=== PATIENT | male | born 1985 | race Caucasian/White ===

== ENCOUNTER 2021-10-13 13:45 | Emergency (ER) | payer MEDICARE, MEDICAID ==
[~2021-10-13] VITALS: Ht 160 cm; Wt 80.1 kg
--- NOTE | 2021-10-13 14:12 | ED Abdominal Pain ---
General Chief Complaint: Abdominal/GI Problems Stated Complaint: ABD / BACK PAIN Nursing Triage Note: PT ARRIVAL TO ER WITH COMPLAINT OF ABDOMINAL PAIN X1 WEEK. PT STATES THAT TODAY WHEN HE BENT OVER HE HEARD AND FELT A LOUD POP IN HIS ABDOMEN. PT VOMITED ONCE TODAY. Source of Information: Patient Exam Limitations: No Limitations History of Present Illness Date Seen by Provider: Oct 13, 2021 Time Seen by Provider: 14:10 Initial Comments Patient is a 36-year-old male presents ED bilateral lower abdominal pain. Described as sharp and intermittent. Pain over the past week. Denies any trauma. History of cholecystectomy. Patient states he bent over and felt a sharp pain and vomited once. Patient is type I diabetic has not been checking his blood sugar at home. Denies chest pain, shortness of breath, headache, dizziness, diarrhea. Denies any back pain. Allergies and Home Medications Allergies Coded Allergies: Penicillins (Verified Allergy, Mild, 10/13/21) morphine (Verified Allergy, Mild, 10/13/21) Patient Home Medication List Home Medication List Reviewed: Yes Review of Systems Review of Systems Constitutional: No chills, No diaphoresis EENTM: No Blurred Vision, No Double Vision, No Eye Pain Respiratory: Denies Cough, Denies Orthopnea Cardiovascular: Denies Chest Pain Gastrointestinal: Abdominal Pain, Nausea, Vomiting Musculoskeletal: No back pain, No joint pain, No muscle pain All Other Systems Reviewed Negative Unless Noted: Yes Past Itnyawi-Lbvamz-Lxxfqk Hx Patient Social History Tobacco Use?: No Smokeless Tobacco Frequency: Current Everyday User Use of E-Cig and/or Vaping dev: No Substance use?: No Alcohol Use?: No Pt feels they are or have been: No Immunizations Up To Date Influenza Vaccine Up-to-Date: No; Not Current Physical Exam Vital Signs Vital Signs - First Documented 10/13/21 14:03 Temp 36.4 Pulse 96 Resp 20 B/P (MAP) 139/101 (114) Pulse Ox 98 O2 Delivery Room Air Capillary Refill : Less Than 3 Seconds Height/Weight/BMI Height: '" Weight: lbs. oz. kg; 31.00 BMI Method: General Appearance: WD/WN, no apparent distress HEENT: PERRL/EOMI, normal ENT inspection, TMs normal, pharynx normal Neck: non-tender, full range of motion, supple, normal inspection Respiratory: chest non-tender, lungs clear, normal breath sounds, no respiratory distress, no accessory muscle use Cardiovascular: regular rate, rhythm, no edema, no gallop, no JVD Gastrointestinal: normal bowel sounds, soft, no organomegaly, tenderness (biLateral lower abdominal tenderness) Extremities: normal range of motion, non-tender, normal inspection Back: normal inspection, no CVA tenderness, no vertebral tenderness Neurologic/Psychiatric: cma II-XII nml as tested, no motor/sensory deficits, alert, normal mood/affect, oriented x 3 Progress/Results/Core Measures Results/Orders Lab Results Laboratory Tests Test 10/13/21 14:14 10/13/21 14:24 10/13/21 16:32 10/13/21 17:33 Range/Units Urine Color YELLOW Urine Clarity CLEAR Urine pH 6.0 5-9 Urine Specific [place] <=1.005 1.016-1.022 Urine Protein NEGATIVE NEGATIVE Urine Glucose (UA) 3+ H NEGATIVE Urine Ketones TRACE H NEGATIVE Urine Nitrite NEGATIVE NEGATIVE Urine Bilirubin NEGATIVE NEGATIVE Urine Urobilinogen 0.2 < = 1.0 MG/DL Urine Leukocyte Esterase NEGATIVE NEGATIVE Urine RBC (Auto) NEGATIVE NEGATIVE Urine RBC NONE /HPF Urine WBC NONE /HPF Urine Squamous Epithelial Cells RARE /HPF Urine Crystals NONE /LPF Urine Bacteria NEGATIVE /HPF Urine Casts NONE /LPF Urine Mucus NEGATIVE /LPF Urine Culture Indicated NO White Blood Count 10.5 4.3-11.0 10^3/uL Red Blood Count 4.42 4.30-5.52 10^6/uL Hemoglobin 12.9 L 13.3-17.7 g/dL Hematocrit 39 L 40-54 % Mean Corpuscular Volume 88 80-99 fL Mean Corpuscular Hemoglobin 29 25-34 pg Mean Corpuscular Hemoglobin Concent 33 32-36 g/dL Red Cell Distribution Width 13.2 10.0-14.5 % Platelet Count 221 130-400 10^3/uL Mean Platelet Volume 10.1 9.0-12.2 fL Immature Granulocyte % (Auto) 0 % Neutrophils (%) (Auto) 79 H 42-75 % Lymphocytes (%) (Auto) 14 12-44 % Monocytes (%) (Auto) 6 0-12 % Eosinophils (%) (Auto) 1 0-10 % Basophils (%) (Auto) 1 0-10 % Neutrophils # (Auto) 8.3 H 1.8-7.8 10^3/uL Lymphocytes # (Auto) 1.5 1.0-4.0 10^3/uL Monocytes # (Auto) 0.6 0.0-1.0 10^3/uL Eosinophils # (Auto) 0.1 0.0-0.3 10^3/uL Basophils # (Auto) 0.1 0.0-0.1 10^3/uL Immature Granulocyte # (Auto) 0.0 0.0-0.1 10^3/uL Sodium Level 130 L 135-145 MMOL/L Potassium Level 4.7 3.6-5.0 MMOL/L Chloride Level 97 L 98-107 MMOL/L Carbon Dioxide Level 24 21-32 MMOL/L Anion Gap 9 5-14 MMOL/L Blood Urea Nitrogen 12 7-18 MG/DL Creatinine 1.30 0.60-1.30 MG/DL Estimat Glomerular Filtration Rate 73 BUN/Creatinine Ratio 9 Glucose Level 648 *H 70-105 MG/DL Calcium Level 8.6 8.5-10.1 MG/DL Corrected Calcium 8.7 8.5-10.1 MG/DL Total Bilirubin 0.9 0.1-1.0 MG/DL Aspartate Amino Transf (AST/SGOT) 15 5-34 U/L Alanine Aminotransferase (ALT/SGPT) 16 0-55 U/L Alkaline Phosphatase 203 H 40-136 U/L Total Protein 7.1 6.4-8.2 GM/DL Albumin 3.9 3.2-4.5 GM/DL Lipase 18 8-78 U/L Beta-Hydroxybutyrate (Chem panel) 0.90 H 0.00-0.27 MMOL/L Glucometer 420 *H 344 H 70-110 MG/DL My Orders Orders - LISET HALEY Cbc With Automated Diff (10/13/21 14:03) Comprehensive Metabolic Panel (10/13/21 14:03) Lipase (10/13/21 14:03) Ua Culture If Indicated (10/13/21 14:03) Ketorolac Injection (Toradol Injection) (10/13/21 14:15) Ns Iv 1000 Ml (Sodium Chloride 0.9%) (10/13/21 14:49) Iv/Invasive Line Insertion .IV start (10/13/21 14:49) Insulin (Regular) Human (Novolin R (Per (10/13/21 15:00) Ct Abd/Pelv W (Appendicitis) (10/13/21 14:49) Fentanyl Inj (Sublimaze Injection) (10/13/21 14:49) Iohexol Injection (Omnipaque 350 Mg/Ml 1 (10/13/21 15:45) Received Contrast (Hold Metformin- Contr (10/13/21 15:45) Sodium Chloride Flush (Catheter Flush Sy (10/13/21 15:45) Ns (Ivpb) (Sodium Chloride 0.9% Ivpb Bag (10/13/21 15:45) Accucheck Stat ONCE (10/13/21 15:57) Insulin (Regular) Human (Novolin R (Per (10/13/21 21:00) Beta Hydroxybutyrate (10/13/21 16:38) Ns Iv 1000 Ml (Sodium Chloride 0.9%) (10/13/21 16:39) Medications Given in ED Current Medications Medications Dose Ordered Sig/Tuan Route Start Time Stop Time Status Last Admin Dose Admin Insulin Human Regular 10 unit ONCE ONCE SC 10/13/21 15:00 10/13/21 15:01 DC 10/13/21 15:09 10 UNIT Iohexol 100 ml ONCE ONCE IV 10/13/21 15:45 10/13/21 15:47 DC 10/13/21 15:55 100 ML Ketorolac Tromethamine 30 mg ONCE ONCE IM 10/13/21 14:15 10/13/21 14:16 DC 10/13/21 14:28 30 MG Sodium Chloride 10 ml NEEDED PRN IV 10/13/21 15:45 10/13/21 18:18 DC 10/13/21 15:55 10 ML Sodium Chloride 100 ml ONCE ONCE IV 10/13/21 15:45 10/13/21 15:47 DC 10/13/21 15:55 80 ML Vital Signs/I&O 10/13/21 10/13/21 14:03 18:10 Temp 36.4 Pulse 96 83 Resp 20 20 B/P (MAP) 139/101 (114) 127/91 Pulse Ox 98 99 O2 Delivery Room Air Room Air Blood Pressure Mean: 114 Departure Communication (PCP) Patient with lower abdominal pain right and left lower quadrant over the past week. No radiation. Intermittent sharp pain. Urinalysis with glucose and trace ketones. Normal white blood count. Patient with hyponatremia 130 hypochloremia 97. Normal kidney function liver function anion gap. Beta hydroxybutyrate was 0.90. Possible early DKA. Was given 15 units of regular insulin here with improvement from blood sugar over 600-344. Was given 2 L of fluid. Patient was given fentanyl and states this improved pain. During his stay he was continue requesting fentanyl. Discussed with patient that his CT Abdo pelvis did not show any acute abnormality in his abdomen. Discussed other alternatives. Patient became frustrated and decided to leave. Discussed with patient that there was subpleural nodules that appear benign however twill need outpatient CT scan of the chest for further evaluation. History of smoking. Denies of any current chest pain or shortness of breath. Outpatient follow-up at this time. Discussed importance of continue monitoring blood sugar. I wanted to continue monitoring here until in the 200s. Patient was wanting to leave. if any worsening symptoms return back to ED for further evaluation. Impression Primary Impression: Abdominal pain Disposition: 01 HOME, SELF-CARE Condition: Stable Departure-Patient Inst. Decision time for Depature: 18:05 Referrals: [facility] [place]LOCAL PHYSICIAN (PCP) Primary Care Physician Patient Instructions: Abdominal Pain, Adult ED Add. Discharge Instructions: Need to continue monitoring blood sugar at home. Need to follow-up outpatient with primary care physician. All discharge instructions reviewed with patient and/or family. Voiced understanding. LISET HALEY Oct 13, 2021 14:12
[2021-10-13] MEDS ORDERED: KETOROLAC 60 MG/2 ML VIAL IM ONE (14:15)
[2021-10-13 14:23] LABS: BILIRUBIN,URINE NEGATIVE (NEGATIVE); CLARITY,URINE CLEAR; COLOR,URINE YELLOW; GLUCOSE, URINE (UA) 3+ (NEGATIVE); KETONES,URINE TRACE (NEGATIVE); LEUKOCYTE ESTERASE ,URINE NEGATIVE (NEGATIVE); NITRITE,URINE NEGATIVE (NEGATIVE); PROTEIN,URINE NEGATIVE (NEGATIVE)
[2021-10-13 14:35] LABS: BASOPHILS # (AUTO) 0.1 10^3/uL (0.0-0.1); BASOPHILS % (AUTO) 1 % (0-10); EOSINOPHILS # (AUTO) 0.1 10^3/uL (0.0-0.3); EOSINOPHILS % (AUTO) 1 % (0-10); HEMATOCRIT 39 % (40-54); HEMOGLOBIN 12.9 g/dL (13.3-17.7); LYMPHOCYTES # (AUTO) 1.5 10^3/uL (1.0-4.0); LYMPHOCYTES % (AUTO) 14 % (12-44); MEAN CORPUSCULAR HEMOGLOBIN 29 pg (25-34); MEAN CORPUSCULAR HGB CONC 33 g/dL (32-36); MEAN CORPUSCULAR VOLUME 88 fL (80-99); MEAN PLATELET VOLUME 10.1 fL (9.0-12.2); MONOCYTES # (AUTO) 0.6 10^3/uL (0.0-1.0); MONOCYTES % (AUTO) 6 % (0-12); NEUTROPHILS # (AUTO) 8.3 10^3/uL (1.8-7.8); NEUTROPHILS % (AUTO) 79 % (42-75); PLATELET COUNT 221 10^3/uL (130-400); WHITE BLOOD COUNT 10.5 10^3/uL (4.3-11.0)
[2021-10-13 14:38] LABS: BACTERIA,URINE NEGATIVE /HPF; SQUAMOUS EPITHELIAL CELL,UR RARE /HPF
[2021-10-13 14:40] LABS: ALBUMIN 3.9 GM/DL (3.2-4.5); POTASSIUM 4.7 MMOL/L (3.6-5.0)
[2021-10-13 14:41] LABS: CALCIUM 8.6 MG/DL (8.5-10.1)
[2021-10-13 14:42] LABS: TOTAL PROTEIN 7.1 GM/DL (6.4-8.2)
[2021-10-13 14:44] LABS: BILIRUBIN,TOTAL 0.9 MG/DL (0.1-1.0)
[2021-10-13 14:46] LABS: CREATININE SERUM 1.3 MG/DL (0.60-1.30)
[2021-10-13] MEDS ORDERED: NS IV 1000 ML 1,000 ML IV STA ×2 (14:49→16:39)
[2021-10-13] MEDS ORDERED: fentaNYL INJ 100 MCG/2 ML AMP IVP STA (14:49)
[2021-10-13] MEDS ORDERED: inSUlin (REGULAR) HUMAN 1 UNIT/0.01 ML (CHARGE PER UNIT) SC ONE (15:00)
[2021-10-13] MEDS ORDERED: NS 100 ML (IVPB) BAG IV ONE (15:45)
[2021-10-13] MEDS ORDERED: IOHEXOL 350 MG/ML 100 ML (OMNIPAQUE 350) VIAL IV ONE (15:45)
[2021-10-13] MEDS ORDERED: CATHETER FLUSH 10 ML SYR IV PRN (15:45)
[2021-10-13] MEDS ORDERED: HOLD METFORMIN - RECEIVED CONTRAST 20 ML VIAL IV SCH (15:45)
--- NOTE | 2021-10-13 16:11 | Diagnostic Imaging Report ---
PROCEDURE: CT abdomen and pelvis with contrast, rule out appendicitis. TECHNIQUE: Multiple contiguous axial images were obtained through the abdomen and pelvis after the administration of intravenous contrast. All CT scans use one or more of the following dose optimizing techniques: Automated exposure control, MA and/or KvP adjustment based on patient size and exam type or iterative reconstruction. INDICATION: Abdominal pain of one week's duration. COMPARISON: No priors. FINDINGS: The lung bases revealed scattered subcentimeter subpleural nodules that were predominantly sub-solid in their density. The largest visualized in the right middle lobe at 5 mm. No basilar consolidation or fluid. The gallbladder is surgically absent. The liver, spleen, adrenals, and pancreas are unremarkable. There is no small or large bowel obstruction. The kidneys are unobstructed and normal. There is no pneumatosis. There is no free air. There is no abdominal wall defect, hernia, or rectus sheath collection. The aorta is nonaneurysmal. No vascular obstruction. No diverticulitis or appendicitis. No pneumatosis. No free gas. The urinary bladder was unopacified and nearly empty, grossly unremarkable. The bony structures are nonacute. There is no lymphadenopathy or mass. IMPRESSION: 1. Tiny maximal 5 mm subpleural micronodules, largely sub-solid, in the visualized lung bases favor benignity; however, if there is a history of malignancy or the patient is at high risk, a nonemergent follow-up chest CT would be recommended. 2. The abdominopelvic portion of the study was unremarkable and showed no obstruction, inflammatory process, mass, adenopathy, or acute abnormalities. Dictated by: Dictated on workstation # [id number]
[2021-10-13 18:10] VITALS: BP 127/91
[2021-10-13] MEDS ORDERED: inSUlin (REGULAR) HUMAN 1 UNIT/0.01 ML (CHARGE PER UNIT) SC SCH (21:00)
== END 2021-10-13 18:13 | disposition home or self-care (01) ==
LOC: ER 13:48
DX: R10.31 Right lower quadrant pain (principal); R10.32 Left lower quadrant pain; E87.1 Hypo-osmolality and hyponatremia; E87.8 Other disorders of electrolyte and fluid balance, not elsewhere classified; E71.32 Disorders of ketone metabolism; E10.9 Type 1 diabetes mellitus without complications; F17.220 Nicotine dependence, chewing tobacco, uncomplicated; Z90.49 Acquired absence of other specified parts of digestive tract
CPT/HCPCS: 36415; 74177; 80053; 81000; 82010; 82947; 83690; 85025

== ENCOUNTER 2021-11-15 15:25 | Emergency (ER) | payer MEDICARE, MEDICAID ==
[~2021-11-15] VITALS: Ht 160 cm; Wt 84.0 kg
--- NOTE | 2021-11-15 16:12 | ED General ---
General Chief Complaint: Glucose Problems Stated Complaint: ABD PAIN Nursing Triage Note: PT TO ED W/ C/O ABD PAIN, N/V ET ELEVATED BLOOD SUGAR. PT REPORTS HIS GLUCOMETER WOULDN'T READ HIS BLOOD SUGAR ET "IT ONLY DOES THAT WHEN MY SUGAR IS OVER 800". NO OTHER C/O VOICED. Source of Information: Patient Exam Limitations: No Limitations History of Present Illness Date Seen by Provider: Nov 15, 2021 Time Seen by Provider: 16:09 Initial Comments This is a 36-year-old male that presents to the emergency room for multiple complaints. He states that his blood sugar has been uncontrolled today and he believes it was over 800. He also states that for the last several weeks he has had intermittent lower abdominal pain but today seems worse and has been constant. He states that he is not having any diarrhea or dysuria but he did throw up once today. Severity: Moderate Allergies and Home Medications Allergies Coded Allergies: Penicillins (Verified Allergy, Mild, 10/13/21) morphine (Verified Allergy, Mild, 10/13/21) Patient Home Medication List Home Medication List Reviewed: Yes Review of Systems Review of Systems Constitutional: no symptoms reported EENTM: no symptoms reported Respiratory: no symptoms reported Cardiovascular: no symptoms reported Gastrointestinal: abdominal pain, nausea, vomiting Genitourinary: no symptoms reported Musculoskeletal: no symptoms reported Skin: no symptoms reported Hematologic/Lymphatic: No Symptoms Reported Past Bqwduun-Innijm-Qwcdhz Hx Patient Social History Tobacco Use?: No Use of E-Cig and/or Vaping dev: No Substance use?: No Alcohol Use?: Yes Pt feels they are or have been: No Past Medical History Surgery/Hospitalization HX: SHILPA BILAT EAR SURGERY (MULTIPLE) [facility]&A [facility]TH[facility] DIABETIC Physical Exam Vital Signs Vital Signs - First Documented 11/15/21 15:39 Temp 36.7 Pulse 89 Resp 20 B/P (MAP) 119/97 (104) Pulse Ox 97 O2 Delivery Room Air Capillary Refill : Less Than 3 Seconds Height, Weight, BMI Height: '" Weight: lbs. oz. kg; 32.00 BMI Method: General Appearance: No Apparent Distress, WD/WN HEENT: PERRL/EOMI, TMs Normal, Pharynx Normal Neck: Full Range of Motion Respiratory: Chest Non Tender, Lungs Clear Cardiovascular: Regular Rate, Rhythm Gastrointestinal: Normal Bowel Sounds Neurologic/Psychiatric: Alert, Oriented x3, No Motor/Sensory Deficits, Normal Mood/Affect, time study engineer II-XII Norm as Tested Skin: Normal Color, Warm/Dry Progress/Results/Core Measures Suspected Sepsis SIRS Temperature: Pulse: 89 Respiratory Rate: 20 Laboratory Tests 11/15/21 16:14: White Blood Count 10.9 Blood Pressure 119 /97 Mean: 104 Laboratory Tests 11/15/21 16:14: Creatinine 0.84, Platelet Count 223, Total Bilirubin 0.6 Results/Orders Lab Results Laboratory Tests Test 11/15/21 15:48 11/15/21 16:14 Range/Units Glucometer 117 H 70-110 MG/DL White Blood Count 10.9 4.3-11.0 10^3/uL Red Blood Count 4.66 4.30-5.52 10^6/uL Hemoglobin 13.6 13.3-17.7 g/dL Hematocrit 40 40-54 % Mean Corpuscular Volume 87 80-99 fL Mean Corpuscular Hemoglobin 29 25-34 pg Mean Corpuscular Hemoglobin Concent 34 32-36 g/dL Red Cell Distribution Width 13.6 10.0-14.5 % Platelet Count 223 130-400 10^3/uL Mean Platelet Volume 10.1 9.0-12.2 fL Immature Granulocyte % (Auto) 0 % Neutrophils (%) (Auto) 65 42-75 % Lymphocytes (%) (Auto) 25 12-44 % Monocytes (%) (Auto) 9 0-12 % Eosinophils (%) (Auto) 1 0-10 % Basophils (%) (Auto) 1 0-10 % Neutrophils # (Auto) 7.1 1.8-7.8 10^3/uL Lymphocytes # (Auto) 2.7 1.0-4.0 10^3/uL Monocytes # (Auto) 0.9 0.0-1.0 10^3/uL Eosinophils # (Auto) 0.1 0.0-0.3 10^3/uL Basophils # (Auto) 0.1 0.0-0.1 10^3/uL Immature Granulocyte # (Auto) 0.0 0.0-0.1 10^3/uL Urine Color YELLOW Urine Clarity CLEAR Urine pH 7.5 5-9 Urine Specific [place] 1.015 L 1.016-1.022 Urine Protein NEGATIVE NEGATIVE Urine Glucose (UA) 3+ H NEGATIVE Urine Ketones TRACE H NEGATIVE Urine Nitrite NEGATIVE NEGATIVE Urine Bilirubin NEGATIVE NEGATIVE Urine Urobilinogen 1.0 < = 1.0 MG/DL Urine Leukocyte Esterase NEGATIVE NEGATIVE Urine RBC (Auto) NEGATIVE NEGATIVE Urine RBC RARE /HPF Urine WBC RARE /HPF Urine Squamous Epithelial Cells RARE /HPF Urine Crystals NONE /LPF Urine Bacteria TRACE /HPF Urine Casts NONE /LPF Urine Mucus SMALL H /LPF Urine Other FEW SPERM H /HPF Urine Culture Indicated NO Sodium Level 144 135-145 MMOL/L Potassium Level 3.7 3.6-5.0 MMOL/L Chloride Level 105 98-107 MMOL/L Carbon Dioxide Level 25 21-32 MMOL/L Anion Gap 14 5-14 MMOL/L Blood Urea Nitrogen 14 7-18 MG/DL Creatinine 0.84 0.60-1.30 MG/DL Estimat Glomerular Filtration Rate 116 BUN/Creatinine Ratio 17 Glucose Level 78 70-105 MG/DL Calcium Level 9.4 8.5-10.1 MG/DL Corrected Calcium 9.2 8.5-10.1 MG/DL Total Bilirubin 0.6 0.1-1.0 MG/DL Aspartate Amino Transf (AST/SGOT) 13 5-34 U/L Alanine Aminotransferase (ALT/SGPT) 13 0-55 U/L Alkaline Phosphatase 171 H 40-136 U/L Total Protein 7.5 6.4-8.2 GM/DL Albumin 4.2 3.2-4.5 GM/DL My Orders Orders - LINDA LOMELI Cbc With Automated Diff (11/15/21 16:06) Comprehensive Metabolic Panel (11/15/21 16:06) Ed Iv/Invasive Line Start (11/15/21 16:06) Ua Culture If Indicated (11/15/21 16:06) Vital Signs/I&O 11/15/21 15:39 Temp 36.7 Pulse 89 Resp 20 B/P (MAP) 119/97 (104) Pulse Ox 97 O2 Delivery Room Air Capillary Refill : Less Than 3 Seconds Blood Pressure Mean: 104 Departure Communication (Admissions) Patient is afebrile, nontoxic and in no distress. Abdomen is fairly benign on exam and his lab work is reassuring. At this time there is no evidence or suspicion of DKA, appendicitis, diverticulitis, perforation or other emergent condition. I did recommend the patient follow-up with his primary care doctor if he feels his blood sugars are poorly controlled or return to the emergency room with any severe changes or worsening of his symptoms. Impression Primary Impression: Abdominal pain Disposition: HOME, SELF-CARE Condition: Stable Departure-Patient Inst. Decision time for Depature: 16:50 Referrals: NO,LOCAL PHYSICIAN (PCP/Family) Primary Care Physician Patient Instructions: Abdominal Pain, Adult ED Add. Discharge Instructions: Please follow-up closely with your primary care doctor as needed. Return to the emergency room with any severe changes or worsening of your symptoms as we discussed. All discharge instructions reviewed with patient and/or family. Voiced understanding. LINDA LOMELI Nov 15, 2021 16:12
[2021-11-15 16:22] LABS: BASOPHILS # (AUTO) 0.1 10^3/uL (0.0-0.1); BASOPHILS % (AUTO) 1 % (0-10); EOSINOPHILS # (AUTO) 0.1 10^3/uL (0.0-0.3); EOSINOPHILS % (AUTO) 1 % (0-10); HEMATOCRIT 40 % (40-54); HEMOGLOBIN 13.6 g/dL (13.3-17.7); LYMPHOCYTES # (AUTO) 2.7 10^3/uL (1.0-4.0); LYMPHOCYTES % (AUTO) 25 % (12-44); MEAN CORPUSCULAR HEMOGLOBIN 29 pg (25-34); MEAN CORPUSCULAR HGB CONC 34 g/dL (32-36); MEAN CORPUSCULAR VOLUME 87 fL (80-99); MEAN PLATELET VOLUME 10.1 fL (9.0-12.2); MONOCYTES # (AUTO) 0.9 10^3/uL (0.0-1.0); MONOCYTES % (AUTO) 9 % (0-12); NEUTROPHILS # (AUTO) 7.1 10^3/uL (1.8-7.8); NEUTROPHILS % (AUTO) 65 % (42-75); PLATELET COUNT 223 10^3/uL (130-400); WHITE BLOOD COUNT 10.9 10^3/uL (4.3-11.0)
[2021-11-15 16:24] LABS: BILIRUBIN,URINE NEGATIVE (NEGATIVE); CLARITY,URINE CLEAR; COLOR,URINE YELLOW; GLUCOSE, URINE (UA) 3+ (NEGATIVE); KETONES,URINE TRACE (NEGATIVE); LEUKOCYTE ESTERASE ,URINE NEGATIVE (NEGATIVE); NITRITE,URINE NEGATIVE (NEGATIVE); PH,URINE 7.5 (5-9); PROTEIN,URINE NEGATIVE (NEGATIVE)
[2021-11-15 16:35] LABS: ALBUMIN 4.2 GM/DL (3.2-4.5); POTASSIUM 3.7 MMOL/L (3.6-5.0)
[2021-11-15 16:36] LABS: CALCIUM 9.4 MG/DL (8.5-10.1)
[2021-11-15 16:37] LABS: TOTAL PROTEIN 7.5 GM/DL (6.4-8.2)
[2021-11-15 16:39] LABS: BILIRUBIN,TOTAL 0.6 MG/DL (0.1-1.0)
[2021-11-15 16:40] LABS: BACTERIA,URINE TRACE /HPF; RBC,URINE RARE /HPF; SQUAMOUS EPITHELIAL CELL,UR RARE /HPF; URINE OTHER FEW SPERM /HPF; WBC,URINE RARE /HPF
[2021-11-15 16:41] LABS: CREATININE SERUM 0.84 MG/DL (0.60-1.30)
[2021-11-15] MEDS ORDERED: ONDANSETRON 4 MG (ZOFRAN) ORAL DISSOLVE TAB ONE (16:57)
[2021-11-15] MEDS ORDERED: ONDANSETRON 4 MG (ZOFRAN) ORAL DISSOLVE TAB PO STA (16:57)
[2021-11-15 17:02] VITALS: BP 132/98
== END 2021-11-15 17:02 | disposition home or self-care (01) ==
LOC: EDUNIT# 15:25 → ER 15:26
DX: R10.30 Lower abdominal pain, unspecified (principal); Z90.49 Acquired absence of other specified parts of digestive tract
CPT/HCPCS: 36415; 80053; 81000; 82947; 85025

== ENCOUNTER 2021-11-21 13:16 | Emergency (ER) | payer MEDICARE, MEDICAID ==
[2021-11-21 14:02] VITALS: BP 113/76
[2021-11-21] MEDS ORDERED: NS IV 1000 ML 1,000 ML IV STA (14:15)
[2021-11-21] MEDS ORDERED: ONDANSETRON 4 MG/2 ML (SDV) Z0FRAN IVP ONE (14:15)
--- NOTE | 2021-11-21 14:20 | ED Abdominal Pain ---
General Chief Complaint: Abdominal/GI Problems Stated Complaint: RLQ PAIN, N/V Source of Information: Patient Exam Limitations: No Limitations (LISET HALEY) History of Present Illness Date Seen by Provider: Nov 21, 2021 Time Seen by Provider: 14:16 Initial Comments Patient is a 36-year-old male who is a type I diabetic who presents ED with bilateral abdominal pain worse on the right. History of pain for several months. This pain became worse over the past 4 days. Pain is described as sharp and feels like somebody is punching him in the abdomen. Pain into the g roin but denies of any testicle pain, testicle swelling. Some mild pain and discomfort with urination. States his blood sugar has been over 344 today. Did vomited and not feeling well today. Patient denies taking thing for pain. History of cholecystectomy. Denies fever, chest pain, shortness of breath, cough, runny nose. (LISET HALEY) Allergies and Home Medications Allergies Coded Allergies: Penicillins (Verified Allergy, Mild, 10/13/21) morphine (Verified Allergy, Mild, 10/13/21) Patient Home Medication List Home Medication List Reviewed: Yes (LISET HALEY) Review of Systems Review of Systems Constitutional: No chills, No diaphoresis; malaise EENTM: No Double Vision, No Eye Pain Respiratory: Denies Cough, Denies Orthopnea Cardiovascular: Denies Chest Pain Gastrointestinal: Abdominal Pain; Denies Diarrhea; Nausea, Vomiting Genitourinary: Denies Burning, Denies Discharge, Denies Frequency; Pain Musculoskeletal: No back pain, No joint pain Skin: No change in color Psychiatric/Neurological: Denies Anxiety, Denies Depressed (LISET HALEY) All Other Systems Reviewed Negative Unless Noted: Yes (LISET HALEY) Past Orabwbh-Rdkzva-Btwnup Hx Patient Social History Tobacco Use?: No Smokeless Tobacco Frequency: Current Everyday User Substance use?: No Alcohol Use?: Yes Alcohol Frequency: Rarely Pt feels they are or have been: No (LISET HALEY) Immunizations Up To Date Influenza Vaccine Up-to-Date: No; Not Current (LISET HALEY) Past Medical History Surgery/Hospitalization HX: SHILPA BILAT EAR SURGERY (MULTIPLE) T&A ORTHOPEDIC DIABETIC, htn (LISET HALEY) Physical Exam Vital Signs Vital Signs - First Documented 11/21/21 14:02 Temp 36.6 Pulse 86 Resp 83 B/P (MAP) 113/76 (88) (STEWART BRYAN MD) Vital Signs Capillary Refill : (LISET HALEY) Height/Weight/BMI Height: '" Weight: lbs. oz. kg; 32.00 BMI Method: General Appearance: WD/WN, no apparent distress HEENT: PERRL/EOMI, normal ENT inspection, TMs normal, pharynx normal Neck: non-tender, full range of motion, supple, normal inspection Respiratory: chest non-tender, lungs clear, normal breath sounds, no respiratory distress, no accessory muscle use Cardiovascular: regular rate, rhythm, no edema, no gallop, no JVD Gastrointestinal: normal bowel sounds, soft, no organomegaly, no pulsatile mass, other (Right and left lower quadrant tenderness. Normal bowel sounds throughout. 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, no motor/sensory deficits, alert, normal mood/affect, oriented x 3 Skin: normal color, warm/dry (LISET HALEY) Progress/Results/Core Measures Results/Orders Lab Results Laboratory Tests Test 11/21/21 14:21 11/21/21 14:35 11/21/21 16:01 11/21/21 17:06 Range/Units Urine Color YELLOW Urine Clarity CLEAR Urine pH 6.0 5-9 Urine Specific [place] 1.010 L 1.016-1.022 Urine Protein NEGATIVE NEGATIVE Urine Glucose (UA) 3+ H NEGATIVE Urine Ketones TRACE H NEGATIVE Urine Nitrite NEGATIVE NEGATIVE Urine Bilirubin NEGATIVE NEGATIVE Urine Urobilinogen 0.2 < = 1.0 MG/DL Urine Leukocyte Esterase NEGATIVE NEGATIVE Urine RBC (Auto) NEGATIVE NEGATIVE Urine RBC NONE /HPF Urine WBC NONE /HPF Urine Squamous Epithelial Cells RARE /HPF Urine Crystals NONE /LPF Urine Bacteria TRACE /HPF Urine Casts NONE /LPF Urine Mucus NEGATIVE /LPF Urine Culture Indicated NO White Blood Count 11.9 H 4.3-11.0 10^3/uL Red Blood Count 4.68 4.30-5.52 10^6/uL Hemoglobin 13.6 13.3-17.7 g/dL Hematocrit 41 40-54 % Mean Corpuscular Volume 87 80-99 fL Mean Corpuscular Hemoglobin 29 25-34 pg Mean Corpuscular Hemoglobin Concent 33 32-36 g/dL Red Cell Distribution Width 14.0 10.0-14.5 % Platelet Count 227 130-400 10^3/uL Mean Platelet Volume 10.0 9.0-12.2 fL Immature Granulocyte % (Auto) 0 % Neutrophils (%) (Auto) 72 42-75 % Lymphocytes (%) (Auto) 20 12-44 % Monocytes (%) (Auto) 6 0-12 % Eosinophils (%) (Auto) 1 0-10 % Basophils (%) (Auto) 0 0-10 % Neutrophils # (Auto) 8.6 H 1.8-7.8 10^3/uL Lymphocytes # (Auto) 2.3 1.0-4.0 10^3/uL Monocytes # (Auto) 0.7 0.0-1.0 10^3/uL Eosinophils # (Auto) 0.2 0.0-0.3 10^3/uL Basophils # (Auto) 0.0 0.0-0.1 10^3/uL Immature Granulocyte # (Auto) 0.1 0.0-0.1 10^3/uL Sodium Level 135 138 135-145 MMOL/L Potassium Level 5.5 H 4.5 3.6-5.0 MMOL/L Chloride Level 97 L 101 98-107 MMOL/L Carbon Dioxide Level 24 24 21-32 MMOL/L Anion Gap 14 13 5-14 MMOL/L Blood Urea Nitrogen 13 12 7-18 MG/DL Creatinine 1.04 0.96 0.60-1.30 MG/DL Estimat Glomerular Filtration Rate 95 105 BUN/Creatinine Ratio 13 13 Glucose Level 476 *H 293 H 70-105 MG/DL Calcium Level 9.0 8.5 8.5-10.1 MG/DL Corrected Calcium 8.8 8.5-10.1 MG/DL Total Bilirubin 0.6 0.1-1.0 MG/DL Aspartate Amino Transf (AST/SGOT) 14 5-34 U/L Alanine Aminotransferase (ALT/SGPT) 11 0-55 U/L Alkaline Phosphatase 198 H 40-136 U/L C-Reactive Protein High Sensitivity 0.53 H 0.00-0.50 MG/DL Total Protein 7.5 6.4-8.2 GM/DL Albumin 4.2 3.2-4.5 GM/DL Glucometer 315 H 70-110 MG/DL (STEWART BRYAN MD) My Orders Orders - STEWART BRYAN MD Cbc With Automated Diff (11/21/21 13:21) Comprehensive Metabolic Panel (11/21/21 13:21) Hs C Reactive Protein (11/21/21 13:21) Ua Culture If Indicated (11/21/21 13:21) Ed Iv/Invasive Line Start (11/21/21 13:21) (STEWART BRYAN MD) Medications Given in ED Current Medications Medications Dose Ordered Sig/Tuan Route Start Time Stop Time Status Last Admin Dose Admin Acetaminophen/ Hydrocodone Bitart 1 ea ONCE ONCE PO 11/21/21 17:45 11/21/21 17:47 DC 11/21/21 17:45 1 EA Insulin Human Regular 10 unit ONCE ONCE SC 11/21/21 15:30 11/21/21 15:31 DC 11/21/21 15:27 10 UNIT Insulin Human Regular 10 unit ONCE ONCE SC 11/21/21 16:15 11/21/21 16:16 DC 11/21/21 16:15 10 UNIT Ondansetron HCl 4 mg ONCE ONCE IVP 11/21/21 14:15 11/21/21 14:25 DC 11/21/21 14:40 4 MG (STEWART BRYAN MD) Vital Signs/I&O 11/21/21 14:02 Temp 36.6 Pulse 86 Resp 83 B/P (MAP) 113/76 (88) (STEWART BRYAN MD) Departure Communication (PCP) Patient presents ED with lower abdominal pain pain in the groin. On exam diffuse abdominal tenderness. No testicle pain, testicle or swelling. No urinary symptoms. Urinalysis positive for small trace ketones in glucose. Normal anion gap. Does not appear in DKA but does have elevated blood sugar 497. Patient Was given 20 units of regular insulin with improvement into the 200s. Does have insulin at home. Elevated potassium 5.5. Recheck at 4.5 with improvement. Patient Was given a liter of fluid. Patient was given oral pain medication. Slight elevated white blood count. Patient was seen a month ago for similar type pain with an unremarkable CT scan of the abdomen and pelvis. Similar type pain today so imaging was held. No significant elevated white blood count or febrile or vomiting suggesting surgical abdomen. Patient does not appear in acute distress. Recommend follow-up with GI. Discussed with patient continue improving your diet and working on your blood sugar. Patient was requesting narcotics for at home for pain. Discussed with patient he will need to follow-up with his primary care physician to discuss narcotics. Not comfortable giving narcotics for this type of abdominal pain. Discussed anti- inflammatories at this time. (LISET HALEY) Impression Primary Impression: Abdominal pain Additional Impression: Hyperglycemia Disposition: HOME, SELF-CARE Condition: Stable Departure-Patient Inst. Decision time for Depature: 17:37 (LISET HALEY) Referrals: [facility],LOCAL PHYSICIAN (PCP) Primary Care Physician Patient Instructions: Abdominal Pain, Adult ED ATTENDING PHYSICIAN NOTE: I was physically present as attending physician in the emergency department during the care of this patient, but I was not directly involved in the decision making or delivery of care for this patient. (STEWART BRYAN MD) LISET HALEY Nov 21, 2021 14:20 STEWART BRYAN MD Nov 21, 2021 20:07
[2021-11-21 14:28] LABS: BILIRUBIN,URINE NEGATIVE (NEGATIVE); CLARITY,URINE CLEAR; COLOR,URINE YELLOW; GLUCOSE, URINE (UA) 3+ (NEGATIVE); KETONES,URINE TRACE (NEGATIVE); LEUKOCYTE ESTERASE ,URINE NEGATIVE (NEGATIVE); NITRITE,URINE NEGATIVE (NEGATIVE); PROTEIN,URINE NEGATIVE (NEGATIVE)
[2021-11-21 14:40] LABS: BACTERIA,URINE TRACE /HPF; SQUAMOUS EPITHELIAL CELL,UR RARE /HPF
[2021-11-21 14:41] LABS: BASOPHILS % (AUTO) 0 % (0-10); EOSINOPHILS # (AUTO) 0.2 10^3/uL (0.0-0.3); EOSINOPHILS % (AUTO) 1 % (0-10); HEMATOCRIT 41 % (40-54); HEMOGLOBIN 13.6 g/dL (13.3-17.7); LYMPHOCYTES # (AUTO) 2.3 10^3/uL (1.0-4.0); LYMPHOCYTES % (AUTO) 20 % (12-44); MEAN CORPUSCULAR HEMOGLOBIN 29 pg (25-34); MEAN CORPUSCULAR HGB CONC 33 g/dL (32-36); MEAN CORPUSCULAR VOLUME 87 fL (80-99); MONOCYTES # (AUTO) 0.7 10^3/uL (0.0-1.0); MONOCYTES % (AUTO) 6 % (0-12); NEUTROPHILS # (AUTO) 8.6 10^3/uL (1.8-7.8); NEUTROPHILS % (AUTO) 72 % (42-75); PLATELET COUNT 227 10^3/uL (130-400); WHITE BLOOD COUNT 11.9 10^3/uL (4.3-11.0)
[2021-11-21 14:47] LABS: ALBUMIN 4.2 GM/DL (3.2-4.5); POTASSIUM 5.5 MMOL/L (3.6-5.0)
[2021-11-21 14:50] LABS: TOTAL PROTEIN 7.5 GM/DL (6.4-8.2)
[2021-11-21 14:52] LABS: BILIRUBIN,TOTAL 0.6 MG/DL (0.1-1.0)
[2021-11-21 14:53] LABS: CREATININE SERUM 1.04 MG/DL (0.60-1.30)
[2021-11-21] MEDS ORDERED: fentaNYL INJ 100 MCG/2 ML AMP IVP STA (15:20)
[2021-11-21] MEDS ORDERED: inSUlin (REGULAR) HUMAN 1 UNIT/0.01 ML (CHARGE PER UNIT) SC ONE ×2 (15:30→16:15)
[2021-11-21 17:29] LABS: POTASSIUM 4.5 MMOL/L (3.6-5.0)
[2021-11-21 17:30] LABS: CALCIUM 8.5 MG/DL (8.5-10.1)
[2021-11-21 17:35] LABS: CREATININE SERUM 0.96 MG/DL (0.60-1.30)
[2021-11-21] MEDS ORDERED: HYDROcodone/APAP 5 MG/325 MG (LORTAB) TAB PO ONE (17:45)
== END 2021-11-21 18:28 | disposition home or self-care (01) ==
LOC: EDUNIT# 13:16 → ER 13:18
DX: E10.65 Type 1 diabetes mellitus with hyperglycemia (principal); E87.5 Hyperkalemia; D72.829 Elevated white blood cell count, unspecified; F17.290 Nicotine dependence, other tobacco product, uncomplicated; Z90.49 Acquired absence of other specified parts of digestive tract; Z28.310 Unvaccinated for COVID-19
CPT/HCPCS: 36415; 80048; 80053; 81000; 82947; 85025; 86141

== ENCOUNTER 2021-12-09 15:53 | Emergency (ER) | payer MEDICARE, MEDICAID ==
[~2021-12-09] VITALS: Ht 160 cm; Wt 83.9 kg
--- NOTE | 2021-12-09 16:16 | ED Lower Extremity ---
General Chief Complaint: Lower Extremity Stated Complaint: ANKLE PAIN Nursing Triage Note: PT AMB TO FT 2. PT STATED THAT HIS LEFT TOW HAS BEEN SWOLLEN FOR 3 DAYS AND HE HEARD A "POP" IN HIS ANKLE 4 DAYS AGO. Source: patient Exam Limitations: no limitations History of Present Illness Date Seen by Provider: Dec 09, 2021 Time Seen by Provider: 16:05 Initial Comments Patient is a 36-year-old male with a history of insulin-dependent diabetes, many visits to the emergency department who presents with a chief complaint of left second toe redness, drainage, pain and swelling. Patient states that he was walking 2 or 3 days ago and heard a "pop" in his foot. That was when the onset of pain began. He also noted over the last 24 to 36 hours some redness at the nailbed of the second toe. He is concerned that he might have "MSRA infection like I did before". He states he took a tramadol this morning that did not really help the pain. He denies fevers, chills, nausea or vomiting. He states his blood sugar was "380" this morning. He states he is having a significant amount of difficulty due to the pain with walking. All other review of systems reviewed and negative except as stated. Onset: last week (4 d ago) Pain/Injury Location: left 2nd toe Modifying Factors: Worse With Movement Allergies and Home Medications Allergies Coded Allergies: Penicillins (Verified Allergy, Mild, 10/13/21) morphine (Verified Allergy, Mild, 10/13/21) Patient Home Medication List Home Medication List Reviewed: Yes Sulfamethoxazole/Trimethoprim (Bactrim Ds Tablet) 1 Each Tablet, 1 EACH PO BID Prescribed by: DANIELLA DYER on 12/09/21 1630 Review of Systems Constitutional: see HPI Respiratory: no symptoms reported Cardiovascular: no symptoms reported Gastrointestinal: no symptoms reported Musculoskeletal: joint pain (Left second toe pain) Skin: other (Redness lateral aspect left second toe at the nail bed) All Other Systems Reviewed Negative Unless Noted: Yes Past Ikohzjv-Lprjca-Kxfwdj Hx Patient Social History Tobacco Use?: Yes Smoking Status: Former Smoker Substance use?: No Alcohol Use?: Yes Alcohol Frequency: Once in a while Pt feels they are or have been: Unable to obtain Immunizations Up To Date Influenza Vaccine Up-to-Date: No; Not Current Past Medical History Surgery/Hospitalization HX: SHILPA BILAT EAR SURGERY (MULTIPLE) T&A ORTHOPEDIC DIABETIC, htn Physical Exam Vital Signs Vital Signs - First Documented 12/09/21 16:01 Temp 36.6 Pulse 93 Resp 14 B/P (MAP) 114/85 (95) O2 Delivery Room Air Capillary Refill : Less Than 3 Seconds Height, Weight, BMI Height: '" Weight: lbs. oz. kg; 32.00 BMI Method: General Appearance: WD/WN, no apparent distress Cardiovascular: regular rate, rhythm Respiratory: lungs clear, normal breath sounds, no respiratory distress, no accessory muscle use Ankles: left ankle non-tender, left ankle normal inspection, left ankle normal range of motion, left ankle no evidence of injury Feet: left foot pain (Left second toe lateral aspect at the base of the nail is very mildly erythematous, a slight bit of honey crust noted directly adjacent to the nail. No significant edema, no fluctuance, no proximal lymphangitic streaking), left foot soft tissue tenderness Neurologic/Tendon: normal motor functions, normal tendon functions Neurologic/Psychiatric: alert, normal mood/affect, oriented x 3 Skin: normal color, warm/dry, other (As above under foot exam) Progress/Results/Core Measures Results/Orders My Orders Orders - DANIELLA DYER MD Foot, Left, 3 Views (12/09/21 16:15) Acetaminophen Tablet (Tylenol Tablet) (12/09/21 16:30) Medications Given in ED Current Medications Medications Dose Ordered Sig/Tuan Route Start Time Stop Time Status Last Admin Dose Admin Acetaminophen 1,000 mg ONCE ONCE PO 12/09/21 16:30 12/09/21 16:31 DC 12/09/21 16:45 1,000 MG Vital Signs/I&O 12/09/21 16:01 Temp 36.6 Pulse 93 Resp 14 B/P (MAP) 114/85 (95) O2 Delivery Room Air Blood Pressure Mean: 95 Diagnostic Imaging Diagonstic Imaging: Xray Comments [facility] [place] NAME: CARRI[facility]ER[facility] REC#: [id number] PT STATUS: REG ER : 1985 PHYSICIAN: DANIELLA DYER MD ADMIT DATE: 12/09/21/ER Draft Date of Exam:12/09/21 FOOT, LEFT, 3 VIEWS FOOT, LEFT, 3 VIEWS INDICATION: Left foot pain. COMPARISON: None available. TECHNIQUE: Three non-weightbearing views of foot were obtained. FINDINGS: No acute fracture or malalignment within the left foot. There are likely old healed fracture deformities in the medial malleolus and distal fibula. No features of osseous tarsal coalition. Os peroneum is present. No soft tissue gas or radiopaque foreign body. IMPRESSION: 1. No acute fracture or traumatic malalignment. 2. Probable old healed fracture deformities around the ankle. Correlation with history of prior ankle trauma is advised. Dictated on workstation # [id number] Dict: 12/09/21 1639 Trans: 12/09/21 1643 [id number] Interpreted by: SANTHOSH FRAUSTO MD Electronically signed by: Departure Impression Primary Impression: Cellulitis of toe of left foot Additional Impression: Diabetes Qualified Codes: E10.9 - Type 1 diabetes mellitus without complications Disposition: HOME, SELF-CARE Condition: Stable Departure-Patient Inst. Decision time for Depature: 16:27 Referrals: [facility] [place] NO,LOCAL PHYSICIAN (PCP) Primary Care Physician Patient Instructions: Cellulitis (Skin Infection), Adult ED Add. Discharge Instructions: You need to keep the toe clean with soap and water. Do not put peroxide or alcohol at the toenail. Check your blood sugars often. Continue your insulin as recommended by your doctor. Take the antibiotics as directed until they are finished. Do not stop the antibiotics early. Extra strength Tylenol 2 every 6 hours as needed for pain. Keep the foot elevated. Follow-up with your primary care physician Scripts Sulfamethoxazole/Trimethoprim (Bactrim Ds Tablet) 1 Each Tablet 1 EACH PO BID for 10 Days, #20 TAB Prov: DANIELLA DYER MD 12/09/21 Copy Copies To 1: VICTOR MANUEL ALEJO KATHRYN M MD Dec 09, 2021 16:16
[2021-12-09] MEDS ORDERED: ACETAMINOPHEN 500 MG TAB (TYLENOL) PO ONE (16:30)
[2021-12-09] MEDS ORDERED: SULF1TAB38 PO (16:30)
--- NOTE | 2021-12-09 16:43 | Diagnostic Imaging Report ---
FOOT, LEFT, 3 VIEWS INDICATION: Left foot pain. COMPARISON: None available. TECHNIQUE: Three non-weightbearing views of foot were obtained. FINDINGS: No acute fracture or malalignment within the left foot. There are likely old healed fracture deformities in the medial malleolus and distal fibula. No features of osseous tarsal coalition. Os peroneum is present. No soft tissue gas or radiopaque foreign body. IMPRESSION: 1. No acute fracture or traumatic malalignment. 2. Probable old healed fracture deformities around the ankle. Correlation with history of prior ankle trauma is advised. Dictated by: Dictated on workstation # [id number]
[2021-12-09 17:00] VITALS: BP 114/85
== END 2021-12-09 17:00 | disposition home or self-care (01) ==
LOC: EDUNIT# 15:53 → ER 15:56
DX: L03.032 Cellulitis of left toe (principal); E11.9 Type 2 diabetes mellitus without complications; Z87.891 Personal history of nicotine dependence; Z28.310 Unvaccinated for COVID-19
CPT/HCPCS: 73630

== ENCOUNTER 2021-12-13 15:03 | Emergency (ER) | payer MEDICARE, MEDICAID ==
[~2021-12-13] VITALS: Ht 160 cm; Wt 83.9 kg
[~2021-12-13 15:03] MED LIST: SULF1TAB38 PO
[2021-12-13 15:15] VITALS: BP 132/101
--- NOTE | 2021-12-13 15:54 | ED Cough/URI ---
General Chief Complaint: Cough/Cold/Flu Symptoms Stated Complaint: SORE THROAT/CONGESTION/VOMITING Nursing Triage Note: PT AMB TO RM 10 STATES "IT FEELS LIKE MY LUNGS ARE ON FIRE AND MY SINUSES ARE ON FIRE" PT REPORTS SYMPTOMS SINCE THIS AM. PT A&OX4. Source: patient Exam Limitations: no limitations History of Present Illness Date Seen by Provider: Dec 13, 2021 Time Seen by Provider: 15:47 Initial Comments 36-year-old male with a history of insulin-dependent [place] that presents for cough, congestion and sinus pain. He has been sick since this morning and sta carmen that he feels like his lungs are on fire. He has not attempted any therapy prior to arrival no ill contacts. Timing/Duration: this morning Severity/Quality: mild Prior Episodes/Possible Cause: no prior episodes Allergies and Home Medications Allergies Coded Allergies: Penicillins (Verified Allergy, Mild, 10/13/21) morphine (Verified Allergy, Mild, 10/13/21) Patient Home Medication List Home Medication List Reviewed: Yes Sulfamethoxazole/Trimethoprim (Bactrim Ds Tablet) 1 Each Tablet, 1 EACH PO BID Prescribed by: DANIELLA DYER on 12/09/21 1630 Review of Systems Review of Systems Constitutional: no symptoms reported EENTM: nose congestion Respiratory: cough Cardiovascular: no symptoms reported Gastrointestinal: no symptoms reported Genitourinary: no symptoms reported Musculoskeletal: no symptoms reported Skin: no symptoms reported Past Bcbtlio-Fuzcnq-Hifwfu Hx Patient Social History Tobacco Use?: Yes Smokeless Tobacco Frequency: Current Everyday User Substance use?: No Alcohol Use?: No Pt feels they are or have been: No Past Medical History Surgery/Hospitalization HX: SHILPA BILAT EAR SURGERY (MULTIPLE) T&A ORTHOPEDIC DIABETIC, htn Physical Exam Vital Signs - First Documented 12/13/21 15:15 Temp 37.0 Pulse 92 Resp 16 B/P (MAP) 132/101 (111) Pulse Ox 97 O2 Delivery Room Air Capillary Refill : Less Than 3 Seconds Height: '" Weight: lbs. oz. kg; 32.00 BMI Method: General Appearance: WD/WN, no apparent distress Eyes: Bilateral Eye Normal Inspection, Bilateral Eye PERRL HEENT: PERRL/EOMI, normal ENT inspection, TMs normal Neck: non-tender, full range of motion Respiratory: chest non-tender, lungs clear, normal breath sounds Cardiovascular: regular rate, rhythm Gastrointestinal: normal bowel sounds, non tender, soft Progress/Results/Core Measures Suspected Sepsis SIRS Temperature: Pulse: 92 Respiratory Rate: 16 Blood Pressure 132 /101 Mean: 111 Results/Orders Lab Results Laboratory Tests Test 12/13/21 15:17 Range/Units Influenza Type A (RT-PCR) Not Detected Not Detecte Influenza Type B (RT-PCR) Not Detected Not Detecte SARS-CoV-2 RNA (RT-PCR) Not Detected Not Detecte Vital Signs/I&O 12/13/21 15:15 Temp 37.0 Pulse 92 Resp 16 B/P (MAP) 132/101 (111) Pulse Ox 97 O2 Delivery Room Air Capillary Refill : Less Than 3 Seconds Blood Pressure Mean: 111 Departure Communication (Admissions) Patient is afebrile, nontoxic and in no acute distress. COVID and flu test were negative. We will treat him for acute bronchitis Impression Primary Impression: Bronchitis Disposition: 01 HOME, SELF-CARE Condition: Stable Departure-Patient Inst. Decision time for Depature: 16:00 Referrals: NO,LOCAL PHYSICIAN (PCP/Family) Primary Care Physician Patient Instructions: Acute Bronchitis, Adult (DC) Scripts Doxycycline Hyclate (Doxycycline Hyclate) 100 Mg Tablet 100 MG PO BID for 10 Days, #20 TAB Prov: LINDA LOMELI 12/13/21 Albuterol Sulfate (PROAIR HFA) 1 Puff Puff 2 PUFF IH Q4H for Cough for 7 Days, #1 EA 1 PUFF = 90 MCG Prov: LINDA LOMELI 12/13/21 LINDA LOMELI Dec 13, 2021 15:54
[2021-12-13] MEDS ORDERED: RT-ALBUINH IH (16:01)
[2021-12-13] MEDS ORDERED: DOXY100T2 PO (16:01)
== END 2021-12-13 16:00 | disposition home or self-care (01) ==
LOC: EDUNIT# 15:03 → ER 15:06
DX: J40 Bronchitis, not specified as acute or chronic (principal); F17.200 Nicotine dependence, unspecified, uncomplicated; Z20.822 Contact with and (suspected) exposure to COVID-19
CPT/HCPCS: 87636; 99283

== ENCOUNTER 2021-12-20 18:59 | Emergency (ER) | payer MEDICARE, MEDICAID ==
[~2021-12-20] VITALS: Ht 160 cm; Wt 84.0 kg
[~2021-12-20 18:59] MED LIST changes: +DOXY100T2 PO; +RT-ALBUINH IH
[2021-12-20] MEDS ORDERED: INSU100I14 (19:13)
[2021-12-20] MEDS ORDERED: ALBUTEROL (19:13)
[2021-12-20] MEDS ORDERED: PREG75CA75 (19:13)
[2021-12-20] MEDS ORDERED: LISI5TAB20 (19:13)
[2021-12-20] MEDS ORDERED: SYRI1DIS (19:13)
[2021-12-20] MEDS ORDERED: INSU100I34 (19:13)
[2021-12-20] MEDS ORDERED: [UNRECOGNIZED DRUG - CODE] (19:13)
[2021-12-20] MEDS ORDERED: KETOROLAC 30 MG/ML VIAL IVP STA (19:26)
[2021-12-20 19:29] LABS: BILIRUBIN,URINE NEGATIVE (NEGATIVE); CLARITY,URINE CLEAR; COLOR,URINE ORANGE; GLUCOSE, URINE (UA) 2+ (NEGATIVE); KETONES,URINE NEGATIVE (NEGATIVE); LEUKOCYTE ESTERASE ,URINE NEGATIVE (NEGATIVE); NITRITE,URINE NEGATIVE (NEGATIVE); PROTEIN,URINE NEGATIVE (NEGATIVE)
--- NOTE | 2021-12-20 19:32 | ED GU-Male ---
General Chief Complaint: - Reproductive Stated Complaint: RIGHT TESTICLE PAIN Nursing Triage Note: REPORTS RIGHT TESTICULAR PAIN SINCE 1500 WHILE SITTING. DENIES INJURY. Source: patient History of Present Illness Date Seen by Provider: Dec 20, 2021 Time Seen by Provider: 19:10 Initial Comments PT ARRIVES VIA POV FROM HOME C/O SUDDEN ONSET OF SEVERE RIGHT TESTICULAR PAIN BEGAN AROUND 1545 WHILE SITTING AT A [employer], EATING. STATES IT FEELS LIKE HIS RIGHT TESTICLE IS IN A VISE. PAIN RADIATES UP TO ENTIRE LOWER ABDOMEN, BUT ESPECIALLY TO RIGHT INGUINAL/RLQ AREA + NAUSEA, NO VOMITING ABLE TO VOID ON ARRIVAL, CAUSED MUCH PAIN IN TESTICULAR AREA. STATES HE HAD NOT URINATED SINCE PAIN BEGAN, UNTIL ARRIVAL HERE NO FEVER NO HISTORY OF SIMILAR ONLY PRIOR ABDOMINAL SURGERY IS CHOLECYSTECTOMY PT HAS HAD DIVERTICULITIS IN THE PAST, BUT THIS DOES NOT FEEL THE SAME PT IS TYPE 1 DIABETIC--STATES BLOOD SUGAR WAS OVER 200 BEFORE HE ATE THIS AFTERNOON, AND TOOK HIS NORMAL DOSE OF INSULIN. HAS NOT RECHECKED HIS BLOOD SUGAR SINCE THEN. PT HAS BEEN ON AN ANTIBIOTIC FOR THE LAST WEEK FOR BRONCHITIS--THOSE SYMPTOMS ARE IMPROVING SEEN HERE 12/09/21 FOR INFECTION TO TOE--RX BACTRIM SEEN HERE 12/13/21 FOR BRONCHITIS--COVID TEST NEGATIVE. RX'S FOR DOXYCYCLINE AND ALBUTEROL INHALER PT'S FIRST VISIT HERE 10/13/21--TODAY IS PT'S 6TH ER VISIT, VARIOUS COMPLAINTS PCP: FREDDY WORHTY AT [facility] Allergies and Home Medications Allergies Coded Allergies: Penicillins (Verified Allergy, Mild, 10/13/21) morphine (Verified Allergy, Mild, 10/13/21) Patient Home Medication List Albuterol Sulfate (Proair Hfa) 1 Puff Puff, 2 PUFF IH Q4H Prescribed by: Anup Hickman on 12/13/21 1601 Blood Sugar Diagnostic (Onetouch Verio) 1 Each Strip, (Reported) Entered as Reported by: ABRAHAM GAMINO on 12/20/211912 Last Action: New Order Doxycycline Hyclate (Doxycycline Hyclate) 100 Mg Tablet, 100 MG PO BID Prescribed by: Anup Hickman on 12/13/21 1601 Insulin Aspart (Novolog Flexpen) 100 Unit/Ml (3 Ml) Solution, (Reported) Entered as Reported by: ABRAHAM GAMINO on 12/20/211912 Last Action: New Order Insulin Glargine,Hum.rec.anlog (Basaglar Kwikpen U-100) 100 Unit/Ml (3 Ml) Insuln.pen, (Reported) Entered as Reported by: ABRAHAM GAMINO on 12/20/211912 Last Action: New Order Lisinopril (Lisinopril) 5 Mg Tablet, (Reported) Entered as Reported by: ABRAHAM GAMINO on 12/20/211912 Last Action: New Order Pregabalin (Pregabalin) 75 Mg Capsule, (Reported) Entered as Reported by: ABRAHAM GAMINO on 12/20/211912 Last Action: New Order Sulfamethoxazole/Trimethoprim (Bactrim Ds Tablet) 1 Each Tablet, 1 EACH PO BID Prescribed by: DANIELLA DYER on 12/09/21 1630 Syring W-Ndl,Disp,Insul,0.5 ml (Insulin Syringe) 31 Gauge X 5/16" Disp.syrin, (Reported), (DME) Entered as Reported by: ABRAHAM GAMINO on 12/20/211912 Last Action: New Order [Albuterol] , (Reported) Entered as Reported by: ABRAHAM GAMINO on 12/20/211912 Last Action: New Order Review of Systems Review of Systems Constitutional: no symptoms reported Respiratory: no symptoms reported Cardiovascular: no symptoms reported Gastrointestinal: see HPI Genitourinary: see HPI Musculoskeletal: no symptoms reported; No back pain Skin: no symptoms reported Psychiatric/Neurological: No Symptoms Reported Endocrine: See HPI Hematologic/Lymphatic: No Symptoms Reported Past Tsaeimx-Baxqjh-Bnohcq Hx Patient Social History Tobacco Use?: Yes Substance use?: No Alcohol Use?: No Pt feels they are or have been: No Immunizations Up To Date First/Initial COVID19 Vaccinat: NONE Past Medical History Surgery/Hospitalization HX: SHILPA BILAT EAR SURGERY (MULTIPLE) T&A ORTHOPEDIC DIABETIC, htn, HIGH CHOLESTEROL Surgeries: Yes Adenoidectomy, Ear Surgery, Gallbladder, Tonsillectomy Respiratory: No Cardiac: Yes Hypertension Neurological: Yes Neuropathy Genitourinary: Yes (NO DIALYSIS) Renal Failure Gastrointestinal: Yes Diverticulosis Musculoskeletal: No Endocrine: Yes (TYPE 1 DIABETES) Diabetes, Insulin dep HEENT: Yes (S/P T&A; MULTIPLE SETS OF BMT'S) Cancer: No Psychosocial: No Integumentary: No Blood Disorders: No Physical Exam Vital Signs Vital Signs - First Documented 12/20/21 19:05 Temp 37.0 Pulse 95 Resp 20 B/P (MAP) 114/86 (95) Pulse Ox 97 O2 Delivery Room Air Capillary Refill : Less Than 3 Seconds Height, Weight, BMI Height: '" Weight: lbs. oz. kg; 32.00 BMI Method: General Appearance: WD/WN, other (LOOKS UNCOMFORTABLE, AND WALKING SOMEWHAT SLOWLY, AND GRUNTING WHEN HE WALKS. DIRTY, UNKEMPT) Cardiovascular: regular rate, rhythm Respiratory: normal breath sounds Gastrointestinal: soft, tenderness (DIFFUSE LOWER ABDOMINAL TENDERNESS. ) Male: inguinal tenderness, testicular tenderness, other (MARKED RIGHT TESTICULAR TENDERNESS, AND RIGHT TESTICLE IS VERY HIGH RIDING, WITH INCREASE IN PAIN WITH ANY MOVEMENT OF TESTICLE. NO SWELLING OR DISCOLRATION NOTED. NO SORES/LESIONS NOTED. ) Back: no CVA tenderness Neurologic/Psychiatric: no motor/sensory deficits, alert, oriented x 3 Skin: normal color, warm/dry Progress/Results/Core Measures Suspected Sepsis SIRS Temperature: Pulse: 95 Respiratory Rate: 20 Laboratory Tests 12/20/21 19:31: White Blood Count 10.1 Blood Pressure 114 /86 Mean: 95 Laboratory Tests 12/20/21 19:31: Creatinine 1.02, Platelet Count 238, Total Bilirubin 0.7 Results/Orders Lab Results Laboratory Tests Test 12/20/21 19:19 12/20/21 19:31 Range/Units Urine Color ORANGE Urine Clarity CLEAR Urine pH 6.0 5-9 Urine Specific [place] 1.025 H 1.016-1.022 Urine Protein NEGATIVE NEGATIVE Urine Glucose (UA) 2+ H NEGATIVE Urine Ketones NEGATIVE NEGATIVE Urine Nitrite NEGATIVE NEGATIVE Urine Bilirubin NEGATIVE NEGATIVE Urine Urobilinogen 0.2 < = 1.0 MG/DL Urine Leukocyte Esterase NEGATIVE NEGATIVE Urine RBC (Auto) NEGATIVE NEGATIVE Urine RBC RARE /HPF Urine WBC NONE /HPF Urine Squamous Epithelial Cells RARE /HPF Urine Crystals NONE /LPF Urine Bacteria TRACE /HPF Urine Casts PRESENT /LPF Urine Hyaline Casts RARE /LPF Urine Mucus MODERATE H /LPF Urine Other FEW SPERM H /HPF Urine Culture Indicated NO Urine Opiates Screen NEGATIVE NEGATIVE Urine Oxycodone Screen NEGATIVE NEGATIVE Urine Methadone Screen NEGATIVE NEGATIVE Urine Propoxyphene Screen NEGATIVE NEGATIVE Urine Barbiturates Screen NEGATIVE NEGATIVE Ur Tricyclic Antidepressants Screen NEGATIVE NEGATIVE Urine Phencyclidine Screen NEGATIVE NEGATIVE Urine Amphetamines Screen NEGATIVE NEGATIVE Urine Methamphetamines Screen NEGATIVE NEGATIVE Urine Benzodiazepines Screen NEGATIVE NEGATIVE Urine Cocaine Screen NEGATIVE NEGATIVE Urine Cannabinoids Screen NEGATIVE NEGATIVE White Blood Count 10.1 4.3-11.0 10^3/uL Red Blood Count 4.65 4.30-5.52 10^6/uL Hemoglobin 13.5 13.3-17.7 g/dL Hematocrit 41 40-54 % Mean Corpuscular Volume 87 80-99 fL Mean Corpuscular Hemoglobin 29 25-34 pg Mean Corpuscular Hemoglobin Concent 33 32-36 g/dL Red Cell Distribution Width 13.5 10.0-14.5 % Platelet Count 238 130-400 10^3/uL Mean Platelet Volume 9.6 9.0-12.2 fL Immature Granulocyte % (Auto) 0 % Neutrophils (%) (Auto) 68 42-75 % Lymphocytes (%) (Auto) 23 12-44 % Monocytes (%) (Auto) 7 0-12 % Eosinophils (%) (Auto) 1 0-10 % Basophils (%) (Auto) 0 0-10 % Neutrophils # (Auto) 6.9 1.8-7.8 10^3/uL Lymphocytes # (Auto) 2.4 1.0-4.0 10^3/uL Monocytes # (Auto) 0.7 0.0-1.0 10^3/uL Eosinophils # (Auto) 0.1 0.0-0.3 10^3/uL Basophils # (Auto) 0.0 0.0-0.1 10^3/uL Immature Granulocyte # (Auto) 0.0 0.0-0.1 10^3/uL Sodium Level 143 135-145 MMOL/L Potassium Level 4.3 3.6-5.0 MMOL/L Chloride Level 106 98-107 MMOL/L Carbon Dioxide Level 25 21-32 MMOL/L Anion Gap 12 5-14 MMOL/L Blood Urea Nitrogen 14 7-18 MG/DL Creatinine 1.02 0.60-1.30 MG/DL Estimat Glomerular Filtration Rate 98 BUN/Creatinine Ratio 14 Glucose Level 88 70-105 MG/DL Calcium Level 9.4 8.5-10.1 MG/DL Corrected Calcium 9.2 8.5-10.1 MG/DL Total Bilirubin 0.7 0.1-1.0 MG/DL Aspartate Amino Transf (AST/SGOT) 15 5-34 U/L Alanine Aminotransferase (ALT/SGPT) 18 0-55 U/L Alkaline Phosphatase 167 H 40-136 U/L Total Protein 7.6 6.4-8.2 GM/DL Albumin 4.2 3.2-4.5 GM/DL My Orders Orders - LIUDMILARENETTA K DO Ua Culture If Indicated (12/20/21 19:10) Us Scrotum (Testicle) 13614 (12/20/21 19:10) Ed Iv/Invasive Line Start (12/20/21 19:26) Cbc With Automated Diff (12/20/21 19:26) Comprehensive Metabolic Panel (12/20/21 19:26) Ketorolac Injection (Toradol Injection) (12/20/21 19:26) Drug Screen Stat (Urine) (12/20/21 19:41) Ct Abd/Pelvis Wo(Kidney Stone) (12/20/21 20:18) Vital Signs/I&O 12/20/21 12/20/21 19:05 19:34 Temp 37.0 37.0 Pulse 95 Resp 20 B/P (MAP) 114/86 (95) Pulse Ox 97 O2 Delivery Room Air Capillary Refill : Less Than 3 Seconds Blood Pressure Mean: 95 Diagnostic Imaging Comments SCROTAL ULTRASOUND--PER TECH REPORT AT 2018, AND PER RADIOLOGIST REPORT AT 2042 FINDINGS: RIGHT TESTICLE: 3.7 x 2.1 x 2.9 cm. LEFT TESTICLE: 4.1 x 2.1 x 2.7 cm. The testicles are in normal location and demonstrate homogeneous echotexture. There is vascular flow to the testicles. The epididymides appear unremarkable. Small right-sided hydrocele. No significant varicocele. IMPRESSION: 1. Trace right-sided hydrocele. Otherwise, unremarkable appearing scrotal ultrasound examination. CT ABDOMEN/PELVIS--PER RADIOLOGIST REPORT AT 2104 FINDINGS: LOWER THORAX: Again demonstration is multiple round subcentimeter and subpleural nodules within both lung bases appearing generally stable from prior. The largest is approximately 5 mm in size. No basilar consolidation. Heart size normal. LIVER: Unremarkable on unenhanced imaging. GALLBLADDER: Cholecystectomy. No overt bile ductal dilatation. SPLEEN: Unremarkable. PANCREAS: Atrophic. ADRENAL GLANDS: Unremarkable. KIDNEYS: Normal configuration. No calcification or obstruction. ABDOMINAL AORTA: Unremarkable, nonaneurysmal. A few shotty aortocaval and mesenteric lymph nodes. GASTROINTESTINAL TRACT: Stomach is mild to moderately distended with retained gastric contents, perhaps recent meal ingestion. No small bowel obstruction. Colon unremarkable. There is a normal appendix in the right lower quadrant. No abdominal ascites and/or free air. URINARY BLADDER: Relatively decompressed. REPRODUCTIVE: Unremarkable. OSSEOUS STRUCTURES: Nonacute spondylolysis defects at L5. OTHER: Slight haziness of subcutaneous tissues in left lower abdominal wall could reflect mild cellulitis or perhaps contusion. IMPRESSION: 1. Negative for acute abnormality of the abdomen or pelvis. 2. Again demonstrated are multiple bibasilar 5 mm or smaller subpleural pulmonary nodules. Correlation with patient's clinical history and potential history of any malignancy. Nonemergent follow-up CT chest recommended. Reviewed: Reviewed by Me Departure Impression Primary Impression: Right testicular pain Disposition: HOME, SELF-CARE Condition: Stable Departure-Patient Inst. Decision time for Depature: 21:08 Referrals: [facility] (PCP/Family) Primary Care Physician Patient Instructions: How to Perform a Testicular Self-Exam Add. Discharge Instructions: FOLLOW UP WITH [facility] IN 1-2 DAYS FOR FURTHER CARE RETURN TO ER IF SYMPTOMS WORSEN All discharge instructions reviewed with patient and/or family. Voiced understanding. Scripts Tramadol HCl (Ultram) 50 Mg Tablet 50 MG PO Q4H for Pain, #20 TAB Prov: RENETTA NUR DO 12/20/21 Naproxen (Naproxen) 500 Mg Tablet.dr 500 MG PO BID, #20 TAB Prov: RENETTA NUR DO 12/20/21 RENETTA NUR DO Dec 20, 2021 19:32
[2021-12-20 19:40] LABS: BACTERIA,URINE TRACE /HPF; HYALINE CASTS, URINE RARE /LPF; RBC,URINE RARE /HPF; SQUAMOUS EPITHELIAL CELL,UR RARE /HPF
[2021-12-20 19:41] LABS: URINE OTHER FEW SPERM /HPF
[2021-12-20 19:49] LABS: BASOPHILS % (AUTO) 0 % (0-10); EOSINOPHILS # (AUTO) 0.1 10^3/uL (0.0-0.3); EOSINOPHILS % (AUTO) 1 % (0-10); HEMATOCRIT 41 % (40-54); HEMOGLOBIN 13.5 g/dL (13.3-17.7); LYMPHOCYTES # (AUTO) 2.4 10^3/uL (1.0-4.0); LYMPHOCYTES % (AUTO) 23 % (12-44); MEAN CORPUSCULAR HEMOGLOBIN 29 pg (25-34); MEAN CORPUSCULAR HGB CONC 33 g/dL (32-36); MEAN CORPUSCULAR VOLUME 87 fL (80-99); MEAN PLATELET VOLUME 9.6 fL (9.0-12.2); MONOCYTES # (AUTO) 0.7 10^3/uL (0.0-1.0); MONOCYTES % (AUTO) 7 % (0-12); NEUTROPHILS # (AUTO) 6.9 10^3/uL (1.8-7.8); NEUTROPHILS % (AUTO) 68 % (42-75); PLATELET COUNT 238 10^3/uL (130-400); WHITE BLOOD COUNT 10.1 10^3/uL (4.3-11.0)
[2021-12-20 20:06] LABS: AMPHETAMINE SCREEN, URINE NEGATIVE (NEGATIVE); BARBITURATE SCREEN URINE NEGATIVE (NEGATIVE); BENZODIAZEPINES SCREEN URINE NEGATIVE (NEGATIVE); CANNABINOID SCREEN, URINE NEGATIVE (NEGATIVE); COCAINE SCREEN URINE NEGATIVE (NEGATIVE); METHADONE STAT NEGATIVE (NEGATIVE); OPIATE SCREEN URINE NEGATIVE (NEGATIVE); OXYCODONE STAT NEGATIVE (NEGATIVE); PROPOXYPHENE STAT NEGATIVE (NEGATIVE); TRICYCLIC ANTIDEPRESSANTS SCRE NEGATIVE (NEGATIVE)
[2021-12-20 20:07] LABS: ALBUMIN 4.2 GM/DL (3.2-4.5); BILIRUBIN,TOTAL 0.7 MG/DL (0.1-1.0); CALCIUM 9.4 MG/DL (8.5-10.1); CREATININE SERUM 1.02 MG/DL (0.60-1.30); POTASSIUM 4.3 MMOL/L (3.6-5.0); TOTAL PROTEIN 7.6 GM/DL (6.4-8.2)
--- NOTE | 2021-12-20 20:36 | Diagnostic Imaging Report ---
INDICATION: RIGHT TESTICULAR PAIN TECHNIQUE: Real-time grayscale sonographic imaging and color vascular evaluation of the scrotum. CORRELATION STUDY: None FINDINGS: RIGHT TESTICLE: 3.7 x 2.1 x 2.9 cm. LEFT TESTICLE: 4.1 x 2.1 x 2.7 cm. The testicles are in normal location and demonstrate homogeneous echotexture. There is vascular flow to the testicles. The epididymides appear unremarkable. Small right-sided hydrocele. No significant varicocele. IMPRESSION: 1. Trace right-sided hydrocele. Otherwise, unremarkable appearing scrotal ultrasound examination. Dictated by: Dictated on workstation # [id number]
--- NOTE | 2021-12-20 20:54 | Diagnostic Imaging Report ---
PROCEDURE: CT urinary tract, rule out kidney stone. TECHNIQUE: Multiple contiguous axial images were obtained through the abdomen and pelvis without the use of intravenous contrast. Auto Exposure Controls were utilized during the CT exam to meet ALARA standards for radiation dose reduction. INDICATION: 36-year-old male, pain in right testicle shoots up right side. CORRELATION STUDY: CT abdomen and pelvis 10/13/2021. FINDINGS: LOWER THORAX: Again demonstration is multiple round subcentimeter and subpleural nodules within both lung bases appearing generally stable from prior. The largest is approximately 5 mm in size. No basilar consolidation. Heart size normal. LIVER: Unremarkable on unenhanced imaging. GALLBLADDER: Cholecystectomy. No overt bile ductal dilatation. SPLEEN: Unremarkable. PANCREAS: Atrophic. ADRENAL GLANDS: Unremarkable. KIDNEYS: Normal configuration. No calcification or obstruction. ABDOMINAL AORTA: Unremarkable, nonaneurysmal. A few shotty aortocaval and mesenteric lymph nodes. GASTROINTESTINAL TRACT: Stomach is mild to moderately distended with retained gastric contents, perhaps recent meal ingestion. No small bowel obstruction. Colon unremarkable. There is a normal appendix in the right lower quadrant. No abdominal ascites and/or free air. URINARY BLADDER: Relatively decompressed. REPRODUCTIVE: Unremarkable. OSSEOUS STRUCTURES: Nonacute spondylolysis defects at L5. OTHER: Slight haziness of subcutaneous tissues in left lower abdominal wall could reflect mild cellulitis or perhaps contusion. IMPRESSION: 1. Negative for acute abnormality of the abdomen or pelvis. 2. Again demonstrated are multiple bibasilar 5 mm or smaller subpleural pulmonary nodules. Correlation with patient's clinical history and potential history of any malignancy. Nonemergent follow-up CT chest recommended. Dictated by: Dictated on workstation # [id number]
[2021-12-20] MEDS ORDERED: NAPR500T8 PO (21:10)
[2021-12-20] MEDS ORDERED: TRAM-42 PO (21:10)
[2021-12-20 21:15] VITALS: BP 116/78
== END 2021-12-20 21:19 | disposition home or self-care (01) ==
LOC: EDUNIT# 18:59 → ER 19:02
DX: N50.811 Right testicular pain (principal); E10.40 Type 1 diabetes mellitus with diabetic neuropathy, unspecified; Z72.0 Tobacco use; Z28.310 Unvaccinated for COVID-19
CPT/HCPCS: 36415; 74176; 76870; 80053; 80306; 81000; 85025

== ENCOUNTER 2022-01-05 12:33 | Emergency (ER) | payer MEDICARE, MEDICAID ==
[~2022-01-05] VITALS: Ht 160 cm; Wt 88.4 kg
[~2022-01-05 12:33] MED LIST changes: +ALBUTEROL; +INSU100I14; +INSU100I34; +LISI5TAB20; +NAPR500T8 PO; +PREG75CA75; +SYRI1DIS; +TRAM-42 PO; +[UNRECOGNIZED DRUG - CODE]
--- NOTE | 2022-01-05 13:47 | ED Abdominal Pain ---
General Chief Complaint: Abdominal/GI Problems Stated Complaint: ABD PAIN/RECTAL BLEEDING Nursing Triage Note: PT TO FT 3 WITH CC OF ABD PAIN, VOMITING, BLOOD IN STOOL AND GROIN PAIN THAT BEGAIN TODAY. PT STATES HAS HAD GI CONCERNS IN THE PAST. Source of Information: Patient Exam Limitations: No Limitations History of Present Illness Date Seen by Provider: Jan 05, 2022 Time Seen by Provider: 13:30 Initial Comments 36-year-old male presents emerged department today for abdominal pain, vomiting and blood in his stools. Symptoms started about 30 minutes prior to arrival. He described diffuse abdominal cramping and now with focal pain in his periumbilical region and right lower abdomen. Described as sharp stabbing without radiation. No aggravating or alleviating factors. He has nausea and vomited once. Emesis is nonbloody nonbilious. He states that he had a loose stool with some bright red blood in it x1. No fevers or chills. Allergies and Home Medications Allergies Coded Allergies: Penicillins (Verified Allergy, Mild, 10/13/21) morphine (Verified Allergy, Mild, 10/13/21) Patient Home Medication List Home Medication List Reviewed: Yes Albuterol Sulfate (Proair Hfa) 1 Puff Puff, 2 PUFF IH Q4H Prescribed by: Anup Hickman on 12/13/21 1601 Blood Sugar Diagnostic (Onetouch Verio) 1 Each Strip, (Reported) Entered as Reported by: ABRAHAM GAMINO on 12/20/211912 Doxycycline Hyclate (Doxycycline Hyclate) 100 Mg Tablet, 100 MG PO BID Prescribed by: Anup Hickman on 12/13/21 160 Insulin Aspart (Novolog Flexpen) 100 Unit/Ml (3 Ml) Solution, (Reported) Entered as Reported by: ABRAHAM GAMINO on 12/20/211912 Insulin Glargine,Hum.rec.anlog (Basaglar Kwikpen U-100) 100 Unit/Ml (3 Ml) Insuln.pen, (Reported) Entered as Reported by: ABRAHAM GAMINO on 12/20/211912 Lisinopril (Lisinopril) 5 Mg Tablet, (Reported) Entered as Reported by: ABRAHAM GAMINO on 12/20/211912 Naproxen (Naproxen) 500 Mg Tablet.dr, 500 MG PO BID Prescribed by: RENETTA NUR on 12/20/212109 Pregabalin (Pregabalin) 75 Mg Capsule, (Reported) Entered as Reported by: ABRAHAM GAMINO on 12/20/211912 Sulfamethoxazole/Trimethoprim (Bactrim Ds Tablet) 1 Each Tablet, 1 EACH PO BID Prescribed by: DANIELLA DYER on 12/09/21 1630 Syring W-Ndl,Disp,Insul,0.5 ml (Insulin Syringe) 31 Gauge X 5/16" Disp.syrin, (Reported), (DME) Entered as Reported by: ABRAHAM GAMINO on 12/20/211912 Tramadol HCl (Ultram) 50 Mg Tablet, 50 MG PO Q4H Prescribed by: RENETTA NUR on 12/20/212109 [Albuterol] , (Reported) Entered as Reported by: ABRAHAM GAMINO on 12/20/211912 Review of Systems Review of Systems Constitutional: no symptoms reported EENTM: No Symptoms Reported Respiratory: No Symptoms Reported Cardiovascular: No Symptoms Reported Gastrointestinal: Abdominal Pain, Nausea, Vomiting Genitourinary: No Symptoms Reported Musculoskeletal: no symptoms reported Skin: no symptoms reported Psychiatric/Neurological: No Symptoms Reported Endocrine: No Symptoms Reported Hematologic/Lymphatic: No Symptoms Reported Past Axfyuhs-Dzejxb-Fsliqn Hx Patient Social History Tobacco Use?: Yes Smokeless Tobacco Frequency: Current Everyday User Substance use?: No Alcohol Use?: No Pt feels they are or have been: No Immunizations Up To Date First/Initial COVID19 Vaccinat: NONE Second COVID19 Vaccination Domo: NONE Third COVID19 Vaccination Date: NONE Past Medical History Surgery/Hospitalization HX: SHILPA BILAT EAR SURGERY (MULTIPLE) T&A ORTHOPEDIC DIABETIC, htn, HIGH CHOLESTEROL Surgeries: Yes Adenoidectomy, Ear Surgery, Gallbladder, Tonsillectomy Respiratory: No Cardiac: Yes Hypertension Neurological: Yes Neuropathy Genitourinary: Yes (NO DIALYSIS) Renal Failure Gastrointestinal: Yes Diverticulosis Musculoskeletal: No Endocrine: Yes (TYPE 1 DIABETES) Diabetes, Insulin dep HEENT: Yes (S/P T&A; MULTIPLE SETS OF BMT'S) Cancer: No Psychosocial: No Integumentary: No Blood Disorders: No Family Medical History Reviewed Nursing Family Hx No Pertinent Family Hx Physical Exam Vital Signs Vital Signs - First Documented 01/05/22 13:25 Temp 36.6 Pulse 92 Resp 16 B/P (MAP) 119/86 (97) Pulse Ox 97 O2 Delivery Room Air Capillary Refill : Less Than 3 Seconds Height/Weight/BMI Height: '" Weight: lbs. oz. kg; 34.00 BMI Method: General Appearance: WD/WN, no apparent distress HEENT: PERRL/EOMI, normal ENT inspection, TMs normal, pharynx normal Neck: non-tender, full range of motion, supple, normal inspection Respiratory: chest non-tender, lungs clear, normal breath sounds, no respiratory distress, no accessory muscle use Cardiovascular: regular rate, rhythm, no edema, no gallop, no JVD, no murmur Gastrointestinal: normal bowel sounds, soft, no organomegaly, no pulsatile mass, tenderness (Tenderness palpation periumbilical region and right lower quadrant. Voluntary guarding without any rebound tenderness. No mass organomegaly. No skin changes) Back: normal inspection, no CVA tenderness, no vertebral tenderness Neurologic/Psychiatric: alert, normal mood/affect, oriented x 3 Skin: normal color, warm/dry Progress/Results/Core Measures Results/Orders Lab Results Laboratory Tests Test 01/05/22 14:00 01/05/22 14:40 Range/Units Urine Color YELLOW Urine Clarity CLEAR Urine pH 5.5 5-9 Urine Specific [place] 1.010 L 1.016-1.022 Urine Protein NEGATIVE NEGATIVE Urine Glucose (UA) 3+ H NEGATIVE Urine Ketones 1+ H NEGATIVE Urine Nitrite NEGATIVE NEGATIVE Urine Bilirubin NEGATIVE NEGATIVE Urine Urobilinogen 0.2 < = 1.0 MG/DL Urine Leukocyte Esterase NEGATIVE NEGATIVE Urine RBC (Auto) NEGATIVE NEGATIVE Urine RBC NONE /HPF Urine WBC NONE /HPF Urine Squamous Epithelial Cells NONE /HPF Urine Crystals NONE /LPF Urine Bacteria NEGATIVE /HPF Urine Casts NONE /LPF Urine Mucus NEGATIVE /LPF Urine Culture Indicated NO White Blood Count 9.4 4.3-11.0 10^3/uL Red Blood Count 4.81 4.30-5.52 10^6/uL Hemoglobin 14.3 13.3-17.7 g/dL Hematocrit 42 40-54 % Mean Corpuscular Volume 87 80-99 fL Mean Corpuscular Hemoglobin 30 25-34 pg Mean Corpuscular Hemoglobin Concent 34 32-36 g/dL Red Cell Distribution Width 13.8 10.0-14.5 % Platelet Count 213 130-400 10^3/uL Mean Platelet Volume 10.2 9.0-12.2 fL Immature Granulocyte % (Auto) 0 % Neutrophils (%) (Auto) 69 42-75 % Lymphocytes (%) (Auto) 22 12-44 % Monocytes (%) (Auto) 7 0-12 % Eosinophils (%) (Auto) 2 0-10 % Basophils (%) (Auto) 0 0-10 % Neutrophils # (Auto) 6.5 1.8-7.8 10^3/uL Lymphocytes # (Auto) 2.0 1.0-4.0 10^3/uL Monocytes # (Auto) 0.7 0.0-1.0 10^3/uL Eosinophils # (Auto) 0.2 0.0-0.3 10^3/uL Basophils # (Auto) 0.0 0.0-0.1 10^3/uL Immature Granulocyte # (Auto) 0.0 0.0-0.1 10^3/uL Sodium Level 133 L 135-145 MMOL/L Potassium Level 5.9 H 3.6-5.0 MMOL/L Chloride Level 97 L 98-107 MMOL/L Carbon Dioxide Level 25 21-32 MMOL/L Anion Gap 11 5-14 MMOL/L Blood Urea Nitrogen 13 7-18 MG/DL Creatinine 1.07 0.60-1.30 MG/DL Estimat Glomerular Filtration Rate 92 BUN/Creatinine Ratio 12 Glucose Level 394 H 70-105 MG/DL Glucometer 380 H 70-110 MG/DL Calcium Level 9.2 8.5-10.1 MG/DL Corrected Calcium 8.8 8.5-10.1 MG/DL Total Bilirubin 1.1 H 0.1-1.0 MG/DL Aspartate Amino Transf (AST/SGOT) 19 5-34 U/L Alanine Aminotransferase (ALT/SGPT) 27 0-55 U/L Alkaline Phosphatase 219 H 40-136 U/L Total Protein 8.1 6.4-8.2 GM/DL Albumin 4.5 3.2-4.5 GM/DL Lipase 30 8-78 U/L My Orders Orders - LISADONALD Palma DO Cbc With Automated Diff (01/05/22 13:42) Comprehensive Metabolic Panel (01/05/22 13:42) Lipase (01/05/22 13:42) Ua Culture If Indicated (01/05/22 13:42) Ct Abd/Pelv W (Appendicitis) (01/05/22 13:42) Iohexol Injection (Omnipaque 350 Mg/Ml 1 (01/05/22 14:15) Received Contrast (Hold Metformin- Contr (01/05/22 14:15) Ns (Ivpb) (Sodium Chloride 0.9% Ivpb Bag (01/05/22 14:15) Ondansetron Injection (Zofran Injectio (01/05/22 15:00) Ketorolac Injection (Toradol Injection) (01/05/22 15:00) Medications Given in ED Current Medications Medications Dose Ordered Sig/Tuan Route Start Time Stop Time Status Last Admin Dose Admin Iohexol 100 ml ONCE ONCE IV 01/05/22 14:15 01/05/22 14:16 DC 01/05/22 15:05 80 ML Ketorolac Tromethamine 30 mg ONCE ONCE IVP 01/05/22 15:00 01/05/22 15:01 DC 01/05/22 15:18 30 MG Ondansetron HCl 8 mg ONCE ONCE IVP 01/05/22 15:00 01/05/22 15:01 DC 01/05/22 15:19 8 MG Sodium Chloride 100 ml ONCE ONCE IV 01/05/22 14:15 01/05/22 14:16 DC 01/05/22 15:05 80 ML Vital Signs/I&O 01/05/22 13:25 Temp 36.6 Pulse 92 Resp 16 B/P (MAP) 119/86 (97) Pulse Ox 97 O2 Delivery Room Air Blood Pressure Mean: 97 Departure Communication (Admissions) Patient is hemodynamically stable. CT scan undertaken due to right lower quadrant abdominal pain. Negative. His blood sugar is elevated but no evidence for DKA at this time. He is otherwise hemodynamically stable. He is discharged home in stable condition with supportive care and Zofran. Impression Primary Impression: Abdominal pain Qualified Codes: R10.31 - Right lower quadrant pain Disposition: HOME, SELF-CARE Condition: Stable Departure-Patient Inst. Decision time for Depature: 15:28 Referrals: [facility] (PCP/Family) Primary Care Physician Patient Instructions: Nausea and Vomiting, Adult ED, Stomach Ache and Stomach Upset Add. Discharge Instructions: Use the nausea medicine as prescribed as needed. Follow-up with your primary physician for any nonemergent needs. Return to the emergency department for any severe concerns. All discharge instructions reviewed with patient and/or family. Voiced understanding. Scripts Ondansetron (Ondansetron Odt) 4 Mg Tab.rapdis 4 MG PO Q6H for Nausea for 3 Days, #20 TAB Prov: DONALD GONZALEZ DO 01/05/22 DONALD GONZALEZ DO Jan 05, 2022 13:47
[2022-01-05] MEDS ORDERED: NS 100 ML (IVPB) BAG IV ONE (14:15)
[2022-01-05] MEDS ORDERED: HOLD METFORMIN - RECEIVED CONTRAST 20 ML VIAL IV SCH (14:15)
[2022-01-05] MEDS ORDERED: IOHEXOL 350 MG/ML 100 ML (OMNIPAQUE 350) VIAL IV ONE (14:15)
[2022-01-05 14:23] LABS: BILIRUBIN,URINE NEGATIVE (NEGATIVE); CLARITY,URINE CLEAR; COLOR,URINE YELLOW; GLUCOSE, URINE (UA) 3+ (NEGATIVE); KETONES,URINE 1+ (NEGATIVE); LEUKOCYTE ESTERASE ,URINE NEGATIVE (NEGATIVE); NITRITE,URINE NEGATIVE (NEGATIVE); PH,URINE 5.5 (5-9); PROTEIN,URINE NEGATIVE (NEGATIVE)
[2022-01-05 14:31] LABS: BACTERIA,URINE NEGATIVE /HPF
[2022-01-05 14:47] LABS: BASOPHILS % (AUTO) 0 % (0-10); EOSINOPHILS # (AUTO) 0.2 10^3/uL (0.0-0.3); EOSINOPHILS % (AUTO) 2 % (0-10); HEMATOCRIT 42 % (40-54); HEMOGLOBIN 14.3 g/dL (13.3-17.7); LYMPHOCYTES % (AUTO) 22 % (12-44); MEAN CORPUSCULAR HEMOGLOBIN 30 pg (25-34); MEAN CORPUSCULAR HGB CONC 34 g/dL (32-36); MEAN CORPUSCULAR VOLUME 87 fL (80-99); MEAN PLATELET VOLUME 10.2 fL (9.0-12.2); MONOCYTES # (AUTO) 0.7 10^3/uL (0.0-1.0); MONOCYTES % (AUTO) 7 % (0-12); NEUTROPHILS # (AUTO) 6.5 10^3/uL (1.8-7.8); NEUTROPHILS % (AUTO) 69 % (42-75); PLATELET COUNT 213 10^3/uL (130-400); WHITE BLOOD COUNT 9.4 10^3/uL (4.3-11.0)
[2022-01-05] MEDS ORDERED: ONDANSETRON 4 MG/2 ML (SDV) Z0FRAN IVP ONE (15:00)
[2022-01-05] MEDS ORDERED: KETOROLAC 30 MG/ML VIAL IVP ONE (15:00)
[2022-01-05 15:06] LABS: ALBUMIN 4.5 GM/DL (3.2-4.5)
[2022-01-05 15:07] LABS: POTASSIUM 5.9 MMOL/L (3.6-5.0)
[2022-01-05 15:08] LABS: CALCIUM 9.2 MG/DL (8.5-10.1)
[2022-01-05 15:09] LABS: TOTAL PROTEIN 8.1 GM/DL (6.4-8.2)
[2022-01-05 15:11] LABS: BILIRUBIN,TOTAL 1.1 MG/DL (0.1-1.0)
[2022-01-05 15:13] LABS: CREATININE SERUM 1.07 MG/DL (0.60-1.30)
--- NOTE | 2022-01-05 15:20 | Diagnostic Imaging Report ---
PROCEDURE: CT abdomen and pelvis with contrast, rule out appendicitis, 01/05/2022. TECHNIQUE: Multiple contiguous axial images were obtained through the abdomen and pelvis after the administration of intravenous contrast. All CT scans use one or more of the following dose optimizing techniques: automated exposure control, MA and/or KvP adjustment based on patient size and exam type or iterative reconstruction. INDICATION: Abdominal pain and vomiting, blood in stools. COMPARISON: 12/20/2021. FINDINGS: There are multiple subpleural nodules throughout both lung bases. These findings are stable from recent examination. There is hepatic steatosis. There are clips consistent with previous cholecystectomy. The spleen is normal. Pancreas and adrenal glands unremarkable. Kidneys normal. There is a small fat-containing umbilical hernia. There is no inflammatory change about the loops of bowel. Appendix unremarkable. There is no ascites. No free air. Fat stranding anterior left lateral subcutaneous soft tissues of the abdomen likely iatrogenic with contusion not excluded. The osseous structures intact. IMPRESSION: 1. No acute intra-abdominal or pelvic abnormality. Incidental findings as above. 2. Scattered bilateral subpleural nodule stable from previous imaging but nonspecific. Nonemergent follow-up CT chest could further evaluate. Correlation with medical history of any underlying malignancy recommended, as well. Dictated by: Dictated on workstation # [id number]
[2022-01-05] MEDS ORDERED: ONDA4TAB11 PO (15:29)
[2022-01-05 15:42] VITALS: BP 106/77
== END 2022-01-05 15:42 | disposition home or self-care (01) ==
LOC: EDUNIT# 12:33 → ER 12:36
DX: R10.31 Right lower quadrant pain (principal); R10.33 Periumbilical pain; R11.2 Nausea with vomiting, unspecified; E10.65 Type 1 diabetes mellitus with hyperglycemia; F17.200 Nicotine dependence, unspecified, uncomplicated; Z28.310 Unvaccinated for COVID-19
CPT/HCPCS: 36415; 74177; 80053; 81000; 82947; 83690; 85025

== ENCOUNTER 2022-01-18 11:52 | Emergency (ER) | payer MEDICARE, MEDICAID ==
[~2022-01-18] VITALS: Ht 160 cm; Wt 88.4 kg
[~2022-01-18 11:52] MED LIST changes: +ONDA4TAB11 PO
[2022-01-18] MEDS ORDERED: ONDANSETRON 4 MG (ZOFRAN) ORAL DISSOLVE TAB PO STA (12:42)
[2022-01-18] MEDS ORDERED: ORPHENADRINE 60 MG/2 ML (NORFLEX) AMP (ED ONLY) IM ONE (12:45)
--- NOTE | 2022-01-18 12:51 | ED Abdominal Pain ---
General Chief Complaint: Abdominal/GI Problems Stated Complaint: GROIN/LOWER ABD/LOWER BACK PAIN Nursing Triage Note: PT AMB TO RM 6 PT CO OF PAIN LOWER BACK R SIDE AND R GROIN AFTER LIFTING YESTERDAY. PT RATES PAIN 10/10, AND CO OF NAUSEA Source of Information: Patient, Family Exam Limitations: No Limitations History of Present Illness Date Seen by Provider: Jan 18, 2022 Time Seen by Provider: 12:25 Initial Comments Patient is a 36yo male well known to this ED over the last 3 months. C/o RLQ abdominal pain radiating into back after picking up "100lb bags of cement" yesterday. At one point he was lifting and had the sudden onset of pain - he states that he thought he had developed a hernia. Did not notice any bulge in his abdominal wall. Had a normal "dark green bowel movement" this morning. Nausea without vomiting. No problems with urination. No F/C. took 2 naproxen at 6:30am this morning. States it didn't help. Movement makes the pain worse. Nothing really makes it any better. He has had multiple visits and 3 CT abd/pelvis in the last 2.5 months. All normal. Had a scrotal US in december that was normal. All other ROS reviewed and neg except as stated. Timing/Duration: 12 Hours Severity/Quality: Severe, Aching, Cramping Location: RLQ Radiation: Back Activities at Onset: Activity (lifting) Modifying Factors: Improves With Lying down; Worsens With Movement Associated Symptoms: Back Pain, Nausea/Vomiting Allergies and Home Medications Allergies Coded Allergies: Penicillins (Verified Allergy, Mild, 10/13/21) morphine (Verified Allergy, Mild, 10/13/21) Patient Home Medication List Home Medication List Reviewed: Yes Albuterol Sulfate (Proair Hfa) 1 Puff Puff, 2 PUFF IH Q4H Prescribed by: Anup Hickman on 12/13/21 1601 Blood Sugar Diagnostic (Onetouch Verio) 1 Each Strip, (Reported) Entered as Reported by: ABRAHAM GAMINO on 12/20/211912 Doxycycline Hyclate (Doxycycline Hyclate) 100 Mg Tablet, 100 MG PO BID Prescribed by: Anup Hickman on 12/13/21 160 Insulin Aspart (Novolog Flexpen) 100 Unit/Ml (3 Ml) Solution, (Reported) Entered as Reported by: ABRAHAM GAMINO on 12/20/211912 Insulin Glargine,Hum.rec.anlog (Basaglar Kwikpen U-100) 100 Unit/Ml (3 Ml) Insuln.pen, (Reported) Entered as Reported by: ABRAHAM GAMINO on 12/20/211912 Lisinopril (Lisinopril) 5 Mg Tablet, (Reported) Entered as Reported by: ABRAHAM GAMINO on 12/20/211912 Naproxen (Naproxen) 500 Mg Tablet.dr, 500 MG PO BID Prescribed by: RENETTA NUR on 12/20/212109 Ondansetron (Ondansetron Odt) 4 Mg Tab.rapdis, 4 MG PO Q6H Prescribed by: DONALD GONZALEZ MD on 01/05/221528 Pregabalin (Pregabalin) 75 Mg Capsule, (Reported) Entered as Reported by: ABRAHAM GAMINO on 12/20/211912 Sulfamethoxazole/Trimethoprim (Bactrim Ds Tablet) 1 Each Tablet, 1 EACH PO BID Prescribed by: DANIELLA DYER on 12/09/21 1630 Syring W-Ndl,Disp,Insul,0.5 ml (Insulin Syringe) 31 Gauge X 5/16" Disp.syrin, ( Reported), (DME) Entered as Reported by: ABRAHAM GAMINO on 12/20/211912 Tramadol HCl (Ultram) 50 Mg Tablet, 50 MG PO Q4H Prescribed by: RENETTA NUR on 12/20/212109 [Albuterol] , (Reported) Entered as Reported by: ABRAHAM GAMINO on 12/20/211912 Review of Systems Review of Systems Constitutional: see HPI EENTM: No Symptoms Reported Respiratory: No Symptoms Reported Cardiovascular: No Symptoms Reported Gastrointestinal: Abdominal Pain, Nausea Genitourinary: No Symptoms Reported Musculoskeletal: back pain Skin: no symptoms reported Psychiatric/Neurological: No Symptoms Reported All Other Systems Reviewed Negative Unless Noted: Yes Past Rkroteu-Atuzoo-Gcrmad Hx Patient Social History Tobacco Use?: No Substance use?: No Alcohol Use?: Yes Alcohol type: Beer Alcohol Frequency: Once in a while Pt feels they are or have been: No Immunizations Up To Date First/Initial COVID19 Vaccinat: NONE Second COVID19 Vaccination Domo: NONE Third COVID19 Vaccination Date: NONE Past Medical History Surgery/Hospitalization HX: SHILPA BILAT EAR SURGERY (MULTIPLE) T&A ORTHOPEDIC DIABETIC, htn, HIGH CHOLESTEROL Surgeries: Yes Adenoidectomy, Ear Surgery, Gallbladder, Tonsillectomy Respiratory: No Cardiac: Yes Hypertension Neurological: Yes Neuropathy Genitourinary: Yes (NO DIALYSIS) Renal Failure Gastrointestinal: Yes Diverticulosis Musculoskeletal: No Endocrine: Yes (TYPE 1 DIABETES) Diabetes, Insulin dep HEENT: Yes (S/P T&A; MULTIPLE SETS OF BMT'S) Cancer: No Psychosocial: No Integumentary: No Blood Disorders: No Family Medical History No Pertinent Family Hx Physical Exam Vital Signs Vital Signs - First Documented 01/18/22 12:00 Temp 36.2 Pulse 91 Resp 18 B/P (MAP) 137/90 (106) Pulse Ox 98 Capillary Refill : Height/Weight/BMI Height: '" Weight: lbs. oz. kg; 34.00 BMI Method: General Appearance: WD/WN, no apparent distress HEENT: PERRL/EOMI Respiratory: lungs clear, normal breath sounds, no respiratory distress, no accessory muscle use Cardiovascular: regular rate, rhythm Gastrointestinal: soft, tenderness (RLQ - no rebound or inviluntary guarding' normal bowel sounds), other (no defects palpable in the anterior abdominal wall) Genital/Rectal: normal genital exam; No blood at urethral meatus; other (no testicular or scrotal tenderness; no palpable direct or indirect inguinal hernias) Extremities: normal range of motion, normal inspection, no pedal edema Male: normal genitalia; No inguinal tenderness, No testicular tenderness Neurologic/Psychiatric: alert, normal mood/affect, oriented x 3 Skin: normal color, warm/dry Progress/Results/Core Measures Results/Orders Lab Results Laboratory Tests Test 01/18/22 12:16 Range/Units Glucometer 253 H 70-110 MG/DL My Orders Orders - DANIELLA DYER MD Accucheck Stat ONCE (01/18/22 11:57) Vital Signs/I&O 01/18/22 12:00 Temp 36.2 Pulse 91 Resp 18 B/P (MAP) 137/90 (106) Pulse Ox 98 Blood Pressure Mean: 106 [facility]SBG Bedside Testing Finger Stick Blood Glucose: 253 Blood Glucose Action Taken: REPORTED TO DR Marie Progress Note : Time: 12:46 Progress Note Patient seen and evaluated, 18 hours of right lower quadrant abdominal pain. Evaluation today includes a physical exam with genital exam both supine and standing. No physical exam findings concerning for acute incarcerated ventral abdominal hernia or direct or indirect inguinal hernias. No scrotal/testicular tenderness or swelling. Both testicles are palpated the right testicle is a little higher than the left. No lesions in the groin. No wounds. Patient has tenderness to the musculature of the right lower quadrant. No overlying erythema/abscess. Normal bowel sounds, benign abdominal exam. Patient likely has abdominal wall strain. Due to lifting "100 pound bags of cement". Recommend muscle relaxers, NSAIDs, heat. Follow-up with PCP. Departure Impression Primary Impression: Abdominal wall pain Disposition: HOME, SELF-CARE Condition: Stable Departure-Patient Inst. Decision time for Depature: 12:48 Referrals: [facility] (PCP/Family) Primary Care Physician Patient Instructions: Abdominal Pain, Adult ED Add. Discharge Instructions: Use a heating pad to the sore area of the abdominal wall on the right. You can also try over the counter lidocaine patches - also known as "Salon Pas" to the sore area of your abdomen. Follow packaging instructions. Continue tylenol and Naproxen for pain. Always take naproxen with food. Drink lots of water taking this medication. If you develop a fever with worsening pain, vomiting or any other emergent, concerning symptoms, please come back to the Emergency Department for re- evaluation. Methocarbamol - muscle relaxer, take as needed/ directed. Scripts Methocarbamol (Methocarbamol) 750 Mg Tablet 750 MG PO Q6-8HR for muscle spasm/pain, #12 TAB Prov: DANIELLA DYER MD 01/18/22 Copy Copies To 1: VICTOR MANUEL ALEJO KATHRYN M MD Jan 18, 2022 12:51
[2022-01-18] MEDS ORDERED: METH-732 PO (12:52)
[2022-01-18 13:14] VITALS: BP 140/85
== END 2022-01-18 13:14 | disposition home or self-care (01) ==
LOC: EDUNIT# 11:52 → ER 11:55
DX: R10.31 Right lower quadrant pain (principal); E10.42 Type 1 diabetes mellitus with diabetic polyneuropathy; Z90.49 Acquired absence of other specified parts of digestive tract; Z28.310 Unvaccinated for COVID-19
CPT/HCPCS: 82947

== ENCOUNTER 2022-02-21 13:15 | Emergency (ER) | payer MEDICARE, MEDICAID ==
[~2022-02-21 13:15] MED LIST changes: +ALBU8.5H6 IH; +METH-732 PO; -RT-ALBUINH IH
== END 2022-02-21 13:30 | disposition left against medical advice (07) ==
LOC: EDUNIT# 13:15 → ER 13:17
DX: R10.10 Upper abdominal pain, unspecified (principal); R73.9 Hyperglycemia, unspecified

== ENCOUNTER 2022-04-05 12:25 | Emergency (ER) | payer MEDICARE, MEDICAID ==
[~2022-04-05] VITALS: Ht 161 cm; Wt 92.0 kg
[2022-04-05 12:39] VITALS: BP 123/99
--- NOTE | 2022-04-05 12:50 | ED Lower Extremity ---
General Chief Complaint: Lower Extremity Stated Complaint: LEFT ANKLE PAIN Nursing Triage Note: PT STATES HE WAS DOING THE DISHES AND THINKS HE MIGHT HAVE TURNED AND HURT HIS ANKLE, PT PASSED OUT AND WOKE UP ON THE FLOOR WITH LT ANKLE PAIN. HAS HX OF STAFF INFECTION IN THE LT ANKLE Source: patient Exam Limitations: no limitations History of Present Illness Date Seen by Provider: Apr 05, 2022 Time Seen by Provider: 12:35 Initial Comments 37 yo M here for L ankle pain after twisted it doing dishes. He ended up falling down. Has pain medial and lateral L ankle. No other injuries. Dull throbbing without radiation. Aggravated with weight bearing. Moderate Allergies and Home Medications Allergies Coded Allergies: Penicillins (Verified Allergy, Mild, 10/13/21) morphine (Verified Allergy, Mild, 10/13/21) Patient Home Medication List Home Medication List Reviewed: Yes Albuterol Sulfate (Ventolin Hfa) 1 Puff Puff, 2 PUFF IH Q4H Prescribed by: Anup Hickman on 12/13/21 160 Blood Sugar Diagnostic (Onetouch Verio) 1 Each Strip, (Reported) Entered as Reported by: ABRAHAM GAMINO on 12/20/211912 Doxycycline Hyclate (Doxycycline Hyclate) 100 Mg Tablet, 100 MG PO BID Prescribed by: Anup Hickman on 12/13/21 160 Insulin Aspart (Novolog Flexpen) 100 Unit/Ml (3 Ml) Solution, (Reported) Entered as Reported by: ABRAHAM GAMINO on 12/20/211912 Insulin Glargine,Hum.rec.anlog (Basaglar Kwikpen U-100) 100 Unit/Ml (3 Ml) Insuln.pen, (Reported) Entered as Reported by: ABRAHAM GAMINO on 12/20/211912 Lisinopril (Lisinopril) 5 Mg Tablet, (Reported) Entered as Reported by: ABRAHAM GAMINO on 12/20/211912 Methocarbamol (Methocarbamol) 750 Mg Tablet, 750 MG PO Q6-8HR Prescribed by: DANIELLA DYER on 01/18/22 125 Naproxen (Naproxen) 500 Mg Tablet.dr, 500 MG PO BID Prescribed by: RENETTA NUR on 12/20/212109 Ondansetron (Ondansetron Odt) 4 Mg Tab.rapdis, 4 MG PO Q6H Prescribed by: DONALD GONZALEZ MD on 01/05/22 1529 Pregabalin (Pregabalin) 75 Mg Capsule, (Reported) Entered as Reported by: ABRAHAM GAMINO on 12/20/211912 Sulfamethoxazole/Trimethoprim (Bactrim Ds Tablet) 1 Each Tablet, 1 EACH PO BID Prescribed by: DANIELLA DYER on 12/09/21 1630 Syring W-Ndl,Disp,Insul,0.5 ml (Insulin Syringe) 31 Gauge X 5/16" Disp.syrin, (Reported), (DME) Entered as Reported by: ABRAHAM GAMINO on 12/20/211912 Tramadol HCl (Ultram) 50 Mg Tablet, 50 MG PO Q4H Prescribed by: RENETTA NUR on 12/20/212109 [Albuterol] , (Reported) Entered as Reported by: ABRAHAM GAMINO on 12/20/211912 Review of Systems Constitutional: no symptoms reported EENTM: no symptoms reported Respiratory: no symptoms reported Cardiovascular: no symptoms reported Gastrointestinal: no symptoms reported Genitourinary: no symptoms reported Musculoskeletal: joint pain Skin: no symptoms reported Psychiatric/Neurological: No Symptoms Reported Past Ydazgbn-Pfgkvf-Xgpmdb Hx Patient Social History Tobacco Use?: Yes Use of E-Cig and/or Vaping dev: No Substance use?: No Alcohol Use?: No Immunizations Up To Date First/Initial COVID19 Vaccinat: NONE Second COVID19 Vaccination Domo: NONE Third COVID19 Vaccination Date: NONE Past Medical History Surgery/Hospitalization HX: SHILPA BILAT EAR SURGERY (MULTIPLE) T&A ORTHOPEDIC DIABETIC, htn, HIGH CHOLESTEROL Surgeries: Yes Adenoidectomy, Ear Surgery, Gallbladder, Tonsillectomy Respiratory: No Cardiac: Yes Hypertension Neurological: Yes Neuropathy Genitourinary: Yes (NO DIALYSIS) Renal Failure Gastrointestinal: Yes Diverticulosis Musculoskeletal: No Endocrine: Yes (TYPE 1 DIABETES) Diabetes, Insulin dep HEENT: Yes (S/P T&A; MULTIPLE SETS OF BMT'S) Cancer: No Psychosocial: No Integumentary: No Blood Disorders: No Family Medical History Reviewed Nursing Family Hx No Pertinent Family Hx Physical Exam Vital Signs Vital Signs - First Documented 04/05/22 12:39 Temp 36.0 Pulse 93 Resp 20 B/P (MAP) 123/99 (107) Pulse Ox 98 O2 Delivery Room Air Capillary Refill : Less Than 3 Seconds Height, Weight, BMI Height: '" Weight: lbs. oz. kg; 35.00 BMI Method: General Appearance: WD/WN, no apparent distress HEENT: normal ENT inspection, pharynx normal Neck: non-tender, supple Cardiovascular: regular rate, rhythm, no murmur Respiratory: chest non-tender, lungs clear, normal breath sounds, no respiratory distress, no accessory muscle use Gastrointestinal: normal bowel sounds, non tender, soft, no organomegaly Ankles: left ankle swelling (TTP L medial and lateral malleolus. No deformity. Old surgical scars. ) Neurologic/Tendon: normal sensation, normal motor functions, normal tendon functions Neurologic/Psychiatric: alert, normal mood/affect, oriented x 3 Skin: normal color, warm/dry Progress/Results/Core Measures Results/Orders My Orders Orders - DONALD GONZALEZ DO Ankle, Left, 3 Views (04/05/22 12:44) Vital Signs/I&O 04/05/22 12:39 Temp 36.0 Pulse 93 Resp 20 B/P (MAP) 123/99 (107) Pulse Ox 98 O2 Delivery Room Air Blood Pressure Mean: 107 Departure Communication (Admissions) Ankle x-rays negative. No indication for infectious process. Discharged in stable condition with supportive care. Impression Primary Impression: Left ankle sprain Qualified Codes: S93.402A - Sprain of unspecified ligament of left ankle, initial encounter Disposition: 01 HOME, SELF-CARE Condition: Stable Departure-Patient Inst. Referrals: [facility] (PCP/Family) Primary Care Physician Patient Instructions: Ankle Sprain Add. Discharge Instructions: Alternate ibuprofen and Tylenol as needed for pain. Elevate the ankle when not in use. Ice it as needed for 20 to 30 minutes at a time. Return to the emergency department for any severe concerns. Follow-up with primary doctor for any nonemergent needs All discharge instructions reviewed with patient and/or family. Voiced unders tanding. DONALD GONZALEZ DO Apr 05, 2022 12:50
--- NOTE | 2022-04-05 13:31 | Diagnostic Imaging Report ---
ANKLE, LEFT, 3 VIEWS INDICATION: Left ankle pain COMPARISON: Left foot radiographs of 12/09/2021 TECHNIQUE: 3 views left ankle FINDINGS: Old fracture deformities of the distal tibia and fibula. No acute fractures seen. No osteochondral lesion talar dome. 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 Lucent tract in the distal tibia from prior syndesmotic repair. Achilles shadow is normal. IMPRESSION: No acute osseous abnormality. Dictated by: Dictated on workstation # [id number]
== END 2022-04-05 13:07 | disposition home or self-care (01) ==
LOC: EDUNIT# 12:25 → ER 12:29
DX: S93.492A Sprain of other ligament of left ankle, initial encounter (principal); Z28.310 Unvaccinated for COVID-19; W18.30XA Fall on same level, unspecified, initial encounter; X50.1XXA Overexertion from prolonged static or awkward postures, initial encounter
CPT/HCPCS: 73610

== ENCOUNTER 2022-05-11 12:16 | Emergency (ER) | payer MEDICARE, MEDICAID ==
[~2022-05-11] VITALS: Ht 160 cm; Wt 88.0 kg
[2022-05-11] MEDS ORDERED: ONDANSETRON 4 MG/2 ML (SDV) Z0FRAN IVP ONE (13:45)
[2022-05-11] MEDS ORDERED: KETOROLAC 15 MG/ML VIAL IVP ONE (13:45)
[2022-05-11 14:00] LABS: BASOPHILS % (AUTO) 0 % (0-10); EOSINOPHILS # (AUTO) 0.2 10^3/uL (0.0-0.3); EOSINOPHILS % (AUTO) 2 % (0-10); HEMATOCRIT 43 % (40-54); HEMOGLOBIN 14.5 g/dL (13.3-17.7); LYMPHOCYTES # (AUTO) 2.3 10^3/uL (1.0-4.0); LYMPHOCYTES % (AUTO) 24 % (12-44); MEAN CORPUSCULAR HEMOGLOBIN 30 pg (25-34); MEAN CORPUSCULAR HGB CONC 34 g/dL (32-36); MEAN CORPUSCULAR VOLUME 89 fL (80-99); MEAN PLATELET VOLUME 10.1 fL (9.0-12.2); MONOCYTES # (AUTO) 0.7 10^3/uL (0.0-1.0); MONOCYTES % (AUTO) 7 % (0-12); NEUTROPHILS # (AUTO) 6.4 10^3/uL (1.8-7.8); NEUTROPHILS % (AUTO) 67 % (42-75); PLATELET COUNT 233 10^3/uL (130-400); WHITE BLOOD COUNT 9.5 10^3/uL (4.3-11.0)
--- NOTE | 2022-05-11 14:09 | Diagnostic Imaging Report ---
INDICATION: Left ankle pain and swelling. AP, oblique and lateral views of left ankle are obtained with comparison made to study of 04/05/2022. Similar to the previous study, there are deformities related to old injuries at the ankle and evidence of previous internal fixation. No acute fracture is identified. There is no evidence of new lytic or sclerotic lesion and there is no aggressive type periosteal reaction. IMPRESSION: Continued osseous deformities related to old trauma and surgery without acute abnormality or adverse change detected. Dictated by: Dictated on workstation # [id number]
[2022-05-11 14:10] LABS: ALBUMIN 4.3 GM/DL (3.2-4.5); BILIRUBIN,TOTAL 0.4 MG/DL (0.1-1.0); CREATININE SERUM 1.11 MG/DL (0.60-1.30); POTASSIUM 3.7 MMOL/L (3.6-5.0); TOTAL PROTEIN 7.7 GM/DL (6.4-8.2)
[2022-05-11] MEDS ORDERED: TRM50T PO (14:44)
--- NOTE | 2022-05-11 14:44 | ED General ---
General Chief Complaint: Glucose Problems Stated Complaint: LT ANKLE PAIN | HIGH BLOOD SUGAR Nursing Triage Note: ARRIVED VIA AMB WITH COMPLAINTS OF A HIGH BLOOD SUGAR THIS AM 488. STATES HE HAS BEEN TAKING HIS INSULIN LIKE HE SHOULD. ALSO COMPLAINS OF LEFT ANKLE ET LOWER LEG PAIN FOR 3-3 DAYS. Source of Information: Patient Exam Limitations: No Limitations (DAVID GREY APRN) History of Present Illness Date Seen by Provider: May 11, 2022 Time Seen by Provider: 12:30 Initial Comments History obtained from patient. Patient is a 37-year-old male who presents to the emergency department for evaluation of elevated blood sugar this morning of 488 as well as some left ankle and lower leg pain for the last 2 to 3 days. Denies any injury preceding the leg pain. States he has been taking his insulin as prescribed. Denies any increased thirst or increased frequency of urination. (DAVID GREY APRN) Allergies and Home Medications Allergies Coded Allergies: Penicillins (Verified Allergy, Mild, 10/13/21) morphine (Verified Allergy, Mild, 10/13/21) Patient Home Medication List Home Medication List Reviewed: Yes (DAVID GREY APRN) Albuterol Sulfate (Ventolin Hfa) 1 Puff Puff, 2 PUFF IH Q4H Prescribed by: Anup Hickman on 12/13/21 1601 Blood Sugar Diagnostic (Onetouch Verio) 1 Each Strip, (Reported) Entered as Reported by: ABRAHAM GAMINO on 12/20/211912 Doxycycline Hyclate (Doxycycline Hyclate) 100 Mg Tablet, 100 MG PO BID Prescribed by: Anup Hickman on 12/13/21 160 Insulin Aspart (Novolog Flexpen) 100 Unit/Ml (3 Ml) Solution, (Reported) Entered as Reported by: ABRAHAM GAMINO on 12/20/211912 Insulin Glargine,Hum.rec.anlog (Basaglar Kwikpen U-100) 100 Unit/Ml (3 Ml) Insuln.pen, (Reported) Entered as Reported by: ABRAHAM GAMINO on 12/20/211912 Lisinopril (Lisinopril) 5 Mg Tablet, (Reported) Entered as Reported by: ABRAHAM GAMINO on 12/20/211912 Methocarbamol (Methocarbamol) 750 Mg Tablet, 750 MG PO Q6-8HR Prescribed by: DANIELLA DYER on 01/18/22 1252 Naproxen (Naproxen) 500 Mg Tablet.dr, 500 MG PO BID Prescribed by: RENETTA NUR on 12/20/212109 Ondansetron (Ondansetron Odt) 4 Mg Tab.rapdis, 4 MG PO Q6H Prescribed by: DONALD GONZALEZ MD on 01/05/22 1529 Pregabalin (Pregabalin) 75 Mg Capsule, (Reported) Entered as Reported by: ABRAHAM GAMINO on 12/20/211912 Sulfamethoxazole/Trimethoprim (Bactrim Ds Tablet) 1 Each Tablet, 1 EACH PO BID Prescribed by: DANIELLA DYER on 12/09/21 1630 Syring W-Ndl,Disp,Insul,0.5 ml (Insulin Syringe) 31 Gauge X 5/16" Disp.syrin, (Reported), (DME) Entered as Reported by: ABRAHAM GAMINO on 12/20/211912 Tramadol HCl (Ultram) 50 Mg Tablet, 50 MG PO Q4H Prescribed by: RENETTA NUR on 12/20/212109 Tramadol HCl (Tramadol HCl) 50 Mg Tablet, 50-100 MG PO Q4H PRN for PAIN- BREAKTHROUGH Prescribed by: David Grey on 05/11/22 1444 [Albuterol] , (Reported) Entered as Reported by: ABRAHAM GAMION on 12/20/211912 Review of Systems Review of Systems Constitutional: no symptoms reported EENTM: no symptoms reported Respiratory: no symptoms reported Cardiovascular: no symptoms reported Gastrointestinal: no symptoms reported Genitourinary: no symptoms reported Musculoskeletal: see HPI, joint pain Skin: no symptoms reported Psychiatric/Neurological: No Symptoms Reported Hematologic/Lymphatic: No Symptoms Reported Immunological/Allergic: no symptoms reported (DAVID GREY APRN) Past Gcdiaje-Mmvgwk-Tqnxsh Hx Patient Social History Tobacco Use?: No Alcohol Use?: Yes Alcohol Frequency: Once in a while (DAVID GREY APRN) Immunizations Up To Date First/Initial COVID19 Vaccinat: NONE Second COVID19 Vaccination Domo: NONE Third COVID19 Vaccination Date: NONE (DAVID GREY APRN) Past Medical History Surgery/Hospitalization HX: SHILPA BILAT EAR SURGERY (MULTIPLE) T&A ORTHOPEDIC DIABETIC, htn, HIGH CHOLESTEROL Surgeries: Yes Adenoidectomy, Ear Surgery, Gallbladder, Tonsillectomy Respiratory: No Cardiac: Yes Hypertension Neurological: Yes Neuropathy Genitourinary: Yes (NO DIALYSIS) Renal Failure Gastrointestinal: Yes Diverticulosis Musculoskeletal: No Endocrine: Yes (TYPE 1 DIABETES) Diabetes, Insulin dep HEENT: Yes (S/P T&A; MULTIPLE SETS OF BMT'S) Cancer: No Psychosocial: No Integumentary: No Blood Disorders: No (DAVID GREY APRN) Family Medical History No Pertinent Family Hx (DAVID GREY APRN) Physical Exam Vital Signs Vital Signs - First Documented 05/11/22 12:25 Temp 36.8 Pulse 91 Resp 16 B/P (MAP) 131/89 (103) Pulse Ox 98 O2 Delivery Room Air (LIUDMILA,RENETTA K DO) Vital Signs Capillary Refill : Less Than 3 Seconds (DAVID GREY APRN) Height, Weight, BMI Height: '" Weight: lbs. oz. kg; 34.00 BMI Method: General Appearance: No Apparent Distress, WD/WN HEENT: PERRL/EOMI, TMs Normal, Normal ENT Inspection, Pharynx Normal Neck: Full Range of Motion, Normal Inspection, Non Tender, Supple Respiratory: Chest Non Tender, Lungs Clear, Normal Breath Sounds, No Accessory Muscle Use, No Respiratory Distress Cardiovascular: Regular Rate, Rhythm Gastrointestinal: Non Tender, Soft Extremity: Non Tender, No Calf Tenderness Neurologic/Psychiatric: Alert, Oriented x3, No Motor/Sensory Deficits, Normal Mood/Affect, chest painting leader II-XII Norm as Tested Skin: Normal Color, Warm/Dry (DAVID GREY APRN) Progress/Results/Core Measures Suspected Sepsis SIRS Temperature: Pulse: 91 Respiratory Rate: 16 Laboratory Tests 05/11/22 13:30: White Blood Count 9.5 Blood Pressure 131 /89 Mean: 103 Laboratory Tests 05/11/22 13:30: Creatinine 1.11, Platelet Count 233, Total Bilirubin 0.4 (DAVID GREY APRN) Results/Orders Lab Results Laboratory Tests Test 05/11/22 13:30 05/11/22 13:31 Range/Units White Blood Count 9.5 4.3-11.0 10^3/uL Red Blood Count 4.77 4.30-5.52 10^6/uL Hemoglobin 14.5 13.3-17.7 g/dL Hematocrit 43 40-54 % Mean Corpuscular Volume 89 80-99 fL Mean Corpuscular Hemoglobin 30 25-34 pg Mean Corpuscular Hemoglobin Concent 34 32-36 g/dL Red Cell Distribution Width 12.8 10.0-14.5 % Platelet Count 233 130-400 10^3/uL Mean Platelet Volume 10.1 9.0-12.2 fL Immature Granulocyte % (Auto) 1 % Neutrophils (%) (Auto) 67 42-75 % Lymphocytes (%) (Auto) 24 12-44 % Monocytes (%) (Auto) 7 0-12 % Eosinophils (%) (Auto) 2 0-10 % Basophils (%) (Auto) 0 0-10 % Neutrophils # (Auto) 6.4 1.8-7.8 10^3/uL Lymphocytes # (Auto) 2.3 1.0-4.0 10^3/uL Monocytes # (Auto) 0.7 0.0-1.0 10^3/uL Eosinophils # (Auto) 0.2 0.0-0.3 10^3/uL Basophils # (Auto) 0.0 0.0-0.1 10^3/uL Immature Granulocyte # (Auto) 0.1 0.0-0.1 10^3/uL Sodium Level 138 135-145 MMOL/L Potassium Level 3.7 3.6-5.0 MMOL/L Chloride Level 103 98-107 MMOL/L Carbon Dioxide Level 27 21-32 MMOL/L Anion Gap 8 5-14 MMOL/L Blood Urea Nitrogen 11 7-18 MG/DL Creatinine 1.11 0.60-1.30 MG/DL Estimat Glomerular Filtration Rate 88 BUN/Creatinine Ratio 10 Glucose Level 289 H 70-105 MG/DL Calcium Level 9.0 8.5-10.1 MG/DL Corrected Calcium 8.8 8.5-10.1 MG/DL Total Bilirubin 0.4 0.1-1.0 MG/DL Aspartate Amino Transf (AST/SGOT) 23 5-34 U/L Alanine Aminotransferase (ALT/SGPT) 26 0-55 U/L Alkaline Phosphatase 207 H 40-136 U/L C-Reactive Protein High Sensitivity 1.26 H 0.00-0.50 MG/DL Total Protein 7.7 6.4-8.2 GM/DL Albumin 4.3 3.2-4.5 GM/DL Glucometer 287 H 70-110 MG/DL (RENETTA NUR DO) Vital Signs/I&O 05/11/22 05/11/22 12:25 14:57 Temp 36.8 Pulse 91 Resp 16 B/P (MAP) 131/89 (103) 109/84 Pulse Ox 98 O2 Delivery Room Air (RENETTA NUR DO) Vital Signs/I&O Capillary Refill : Less Than 3 Seconds (DAVID GREY APRN) Blood Pressure Mean: 103 Point of Care Testing Finger Stick Blood Glucose: 287 Blood Glucose Action Taken: provider notified (DAVID GREY APRN) Progress Note : Progress Note Patient is nontoxic and well-hydrated on exam. Patient signs are reassuring without fever. No significant swelling or erythema noted to the left ankle. Patient was ambulatory to the room. Orders placed for CBC, CMP, CRP, IV insertion, and left ankle x-rays. CBC is unremarkable. CMP notable for hyperglycemia as well as a very slightly elevated CRP that is not clinically significant. X-rays of the left ankle are acutely negative. Patient does not appear to be in DKA. Will discharge home with recommendations for supportive care and close follow-up with PCP. Return precautions for urgent symptomology discussed. Patient verbalized understanding. (DAVID GREY APRN) Departure Impression Primary Impression: Left ankle pain Qualified Codes: M25.572 - Pain in left ankle and joints of left foot Additional Impression: Hyperglycemia due to diabetes mellitus Disposition: 01 HOME, SELF-CARE Condition: Stable Departure-Patient Inst. Decision time for Depature: 14:40 (DAVID GREY APRN) Referrals: [facility] [place]) Primary Care Physician Patient Instructions: High Blood Sugar, Adult (DC), Acute Pain, Adult (DC) Scripts Tramadol HCl (Tramadol HCl) 50 Mg Tablet 50-100 MG PO Q4H PRN for PAIN-BREAKTHROUGH for 3 Days, #25 TAB 0 Refills Prov: DAVID GREY APRN 05/11/22 ATTENDING PHYSICIAN NOTE: I WAS PHYSICALLY PRESENT ER PHYSICIAN, BUT I WAS NOT INVOLVED IN ANY DECISION MAKING OR ANY CARE OF THIS PATIENT, AND I AM NOT COLLABORATING PHYSICIAN. (RENETTA NUR DO) DAVID GREY APRN May 11, 2022 14:44 RENETTA NUR DO May 15, 2022 03:59
[2022-05-11 14:57] VITALS: BP 109/84
== END 2022-05-11 14:55 | disposition home or self-care (01) ==
LOC: EDUNIT# 12:16 → ER 12:18
DX: M25.572 Pain in left ankle and joints of left foot (principal); E10.65 Type 1 diabetes mellitus with hyperglycemia; Z28.310 Unvaccinated for COVID-19; Z88.5 Allergy status to narcotic agent
CPT/HCPCS: 36415; 73610; 80053; 82947; 85025; 86141

== ENCOUNTER 2022-06-04 12:57 | Emergency (ER) | payer MEDICARE, MEDICAID ==
[~2022-06-04] VITALS: Ht 160 cm; Wt 88.9 kg
[~2022-06-04 12:57] MED LIST changes: +TRM50T PO
--- NOTE | 2022-06-04 13:36 | ED Lower Extremity ---
General Chief Complaint: Lower Extremity Stated Complaint: FALL | LT KNEE PAIN Source: patient Exam Limitations: no limitations History of Present Illness Date Seen by Provider: Jun 04, 2022 Time Seen by Provider: 13:30 Initial Comments Patient is a 37-year-old male who presents to the emergency department for evaluation of left knee pain after slipping on some ice and falling yesterday. Patient states he fell onto his left knee which struck the ground. States he has been having pain since that time. Took some Tylenol today for the pain. States he called his PCP who told him to come to the ER for further evaluation. Denies any other pain or injury at this time. States ambulation or bearing weight makes the pain worse. Allergies and Home Medications Allergies Coded Allergies: Penicillins (Verified Allergy, Mild, 10/13/21) morphine (Verified Allergy, Mild, 10/13/21) Patient Home Medication List Home Medication List Reviewed: Yes Albuterol Sulfate (Ventolin Hfa) 1 Puff Puff, 2 PUFF IH Q4H Prescribed by: Anup Hickman on 12/13/21 1601 Blood Sugar Diagnostic (Onetouch Verio) 1 Each Strip, (Reported) Entered as Reported by: ABRAHAM GAMINO on 12/20/211912 Doxycycline Hyclate (Doxycycline Hyclate) 100 Mg Tablet, 100 MG PO BID Prescribed by: Anup Hickman on 12/13/21 160 Insulin Aspart (Novolog Flexpen) 100 Unit/Ml (3 Ml) Solution, (Reported) Entered as Reported by: ABRAHAM GAMINO on 12/20/211912 Insulin Glargine,Hum.rec.anlog (Basaglar Kwikpen U-100) 100 Unit/Ml (3 Ml) In suln.pen, (Reported) Entered as Reported by: ABRAHAM GAMINO on 12/20/211912 Lisinopril (Lisinopril) 5 Mg Tablet, (Reported) Entered as Reported by: ABRAHAM GAMINO on 12/20/211912 Methocarbamol (Methocarbamol) 750 Mg Tablet, 750 MG PO Q6-8HR Prescribed by: DANIELLA DYER on 01/18/22 1252 Naproxen (Naproxen) 500 Mg Tablet.dr, 500 MG PO BID Prescribed by: RENETTA NUR on 12/20/212109 Ondansetron (Ondansetron Odt) 4 Mg Tab.rapdis, 4 MG PO Q6H Prescribed by: DONALD GONZALEZ MD on 01/05/22 152 Pregabalin (Pregabalin) 75 Mg Capsule, (Reported) Entered as Reported by: ABRAHAM GAMINO on 12/20/211912 Sulfamethoxazole/Trimethoprim (Bactrim Ds Tablet) 1 Each Tablet, 1 EACH PO BID Prescribed by: DANIELLA DYER on 12/09/21 1630 Syring W-Ndl,Disp,Insul,0.5 ml (Insulin Syringe) 31 Gauge X 5/16" Disp.syrin, (Reported), (DME) Entered as Reported by: ABRAHAM GAMINO on 12/20/211912 Tramadol HCl (Ultram) 50 Mg Tablet, 50 MG PO Q4H Prescribed by: RENETTA NUR on 12/20/212109 Tramadol HCl (Tramadol HCl) 50 Mg Tablet, 50-100 MG PO Q4H PRN for PAIN- BREAKTHROUGH Prescribed by: David Grey on 05/11/22 1444 [Albuterol] , (Reported) Entered as Reported by: ABRAHAM GAMINO on 12/20/211912 Review of Systems Constitutional: no symptoms reported EENTM: no symptoms reported Respiratory: no symptoms reported Cardiovascular: no symptoms reported Gastrointestinal: no symptoms reported Genitourinary: no symptoms reported Musculoskeletal: see HPI, joint pain Skin: no symptoms reported Psychiatric/Neurological: No Symptoms Reported Past Yhysnsm-Iacjyo-Xsktmx Hx Immunizations Up To Date First/Initial COVID19 Vaccinat: NONE Second COVID19 Vaccination Domo: NONE Third COVID19 Vaccination Date: NONE Past Medical History Surgery/Hospitalization HX: SHILPA BILAT EAR SURGERY (MULTIPLE) T&A ORTHOPEDIC DIABETIC, htn, HIGH CHOLESTEROL Surgeries: Yes Adenoidectomy, Ear Surgery, Gallbladder, Tonsillectomy Respiratory: No Cardiac: Yes Hypertension Neurological: Yes Neuropathy Genitourinary: Yes (NO DIALYSIS) Renal Failure Gastrointestinal: Yes Diverticulosis Musculoskeletal: No Endocrine: Yes (TYPE 1 DIABETES) Diabetes, Insulin dep HEENT: Yes (S/P T&A; MULTIPLE SETS OF BMT'S) Cancer: No Psychosocial: No Integumentary: No Blood Disorders: No Family Medical History No Pertinent Family Hx Physical Exam Vital Signs Vital Signs - First Documented 2/2/23 13:28 Temp 36.6 Pulse 100 Resp 18 B/P (MAP) 128/107 (114) Pulse Ox 97 O2 Delivery Room Air Capillary Refill : Height, Weight, BMI Height: '" Weight: lbs. oz. kg; 34.00 BMI Method: General Appearance: WD/WN, no apparent distress HEENT: PERRL/EOMI, normal ENT inspection, TMs normal, pharynx normal Neck: non-tender, full range of motion, supple, normal inspection Cardiovascular: regular rate, rhythm Respiratory: chest non-tender, lungs clear, normal breath sounds, no respiratory distress, no accessory muscle use Gastrointestinal: normal bowel sounds, non tender, soft Knees: left knee soft tissue tenderness, left knee swelling Progress/Results/Core Measures Results/Orders My Orders Orders - DAVID GREY APRN Ibuprofen Tablet (Motrin Tablet) (06/04/22 13:45) Knee, Left, 3 Views (06/04/22 13:52) Medications Given in ED Current Medications Medications Dose Ordered Sig/Tuan Route Start Time Stop Time Status Last Admin Dose Admin Ibuprofen 600 mg ONCE ONCE PO 06/04/22 13:45 06/04/22 13:46 DC 06/04/22 14:01 600 MG Vital Signs/I&O 06/04/22 13:28 Temp 36.6 Pulse 100 Resp 18 B/P (MAP) 128/107 (114) Pulse Ox 97 O2 Delivery Room Air Progress Progress Note : Progress Note Patient is nontoxic and well-hydrated on exam. Vital signs are reassuring. Anterior left knee is tender to palpation. Order placed for left knee x-rays as well as oral dose of ibuprofen. Left knee x-rays are acutely negative for osseous injury. We will discharge the patient home. Discussed supportive care anticipatory guidance. Follow-up with PCP. Return precautions for urgent symptomology discussed. Patient verbalized understanding. Departure Impression Primary Impression: Left knee pain Disposition: HOME, SELF-CARE Condition: Stable Departure-Patient Inst. Referrals: [facility] (PCP/Family) Primary Care Physician Patient Instructions: Knee Pain ED Scripts Ibuprofen (Ibuprofen) 600 Mg Tablet 600 MG PO Q6H PRN for PAIN-MILD for 5 Days, #20 TAB 0 Refills Prov: DAVID GREY APRN 06/04/22 DAVID GREY APRN Jun 04, 2022 13:35
[2022-06-04] MEDS ORDERED: IBUPROFEN 600 MG (MOTRIN) TAB PO ONE (13:45)
--- NOTE | 2022-06-04 14:11 | Diagnostic Imaging Report ---
EXAMINATION: Left knee radiograph EXAM DATE: 06/04/2022 1:59 PM COMPARISON: None available. HISTORY: Left knee pain after fall TECHNIQUE: 3 views FINDINGS: There is no acute fracture, dislocation, or destructive osseous process. The joint spaces are normal. The soft tissues are normal. IMPRESSION: 1. No acute osseous abnormality. Dictated by: Dictated on workstation # [id number]
[2022-06-04] MEDS ORDERED: IBUP-1773 PO (14:27)
[2022-06-04 14:37] VITALS: BP 117/97
== END 2022-06-04 14:37 | disposition home or self-care (01) ==
LOC: EDUNIT# 12:57 → ER 12:59
DX: M25.562 Pain in left knee (principal); Z28.310 Unvaccinated for COVID-19; W01.198A Fall on same level from slipping, tripping and stumbling with subsequent striking against other object, initial encounter
CPT/HCPCS: 73562

== ENCOUNTER 2022-06-17 11:07 | Emergency (ER) | payer MEDICARE, MEDICAID ==
[~2022-06-17] VITALS: Ht 161 cm; Wt 91.0 kg
[~2022-06-17 11:07] MED LIST changes: +IBUP-1773 PO
[2022-06-17] MEDS ORDERED: fentaNYL INJ 100 MCG/2 ML AMP IVP STA (11:28)
[2022-06-17] MEDS ORDERED: NS IV 1000 ML 1,000 ML IV SCH (11:30)
[2022-06-17] MEDS ORDERED: ONDANSETRON 4 MG/2 ML (SDV) Z0FRAN IVP ONE (11:30)
--- NOTE | 2022-06-17 11:35 | ED Abdominal Pain ---
General Chief Complaint: Abdominal/GI Problems Stated Complaint: STOMACH ISSUES | BLOATING Nursing Triage Note: PT STATES NVD FOR 2 DAYS, TYPE I DIABETIC OJ=[id number] AT 0900, FEELS BLOATED, TOOK HIS INSULIN NOVALOG AND BASGARD Source of Information: Patient Exam Limitations: No Limitations History of Present Illness Date Seen by Provider: Jun 17, 2022 Time Seen by Provider: 11:23 Initial Comments 37-year-old male presents to the ED with complaints of severe abdominal pain for the last 2 days. States he has been having bloating for 1 week. He saw his primary care doctor yesterday and was told to come here if the pain became worse. States he did an x-ray that showed a lot of gas and stool. States he has had approximately 3-4 episodes of large amounts of loose stools over the last 2 days. States he had 1 episode of vomiting today, and is currently complaining of nausea. He is a type I diabetic and his fasting blood sugar this morning was 341. Reports feeling chills. Denies fevers, chest pain, shortness of air. Currently takes lisinopril, simvastatin, NovoLog, Basaglar. Allergies and Home Medications Allergies Coded Allergies: Penicillins (Verified Allergy, Mild, 10/13/21) morphine (Verified Allergy, Mild, 10/13/21) Patient Home Medication List Home Medication List Reviewed: Yes Albuterol Sulfate (Ventolin Hfa) 1 Puff Puff, 2 PUFF IH Q4H Prescribed by: Anup Hickman on 12/13/21 1601 Blood Sugar Diagnostic (Onetouch Verio) 1 Each Strip, (Reported) Entered as Reported by: ABRAHAM GAMINO on 12/20/21 191 Dicyclomine HCl (Dicyclomine HCl) 10 Mg Capsule, 10 MG PO ACHS PRN for ABDOMINAL PAIN Prescribed by: Deirdre Sheets on 06/17/22 1357 Doxycycline Hyclate (Doxycycline Hyclate) 100 Mg Tablet, 100 MG PO BID Prescribed by: Anup Hickman on 12/13/21 1601 Ibuprofen (Ibuprofen) 600 Mg Tablet, 600 MG PO Q6H PRN for PAIN-MILD Prescribed by: David Grey on 06/04/22 1427 Insulin Aspart (Novolog Flexpen) 100 Unit/Ml (3 Ml) Solution, (Reported) Entered as Reported by: ABRAHAM GAMINO on 12/20/211912 Insulin Glargine,Hum.rec.anlog (Basaglar Kwikpen U-100) 100 Unit/Ml (3 Ml) Insuln.pen, (Reported) Entered as Reported by: ABRAHAM GAMINO on 12/20/211912 Lisinopril (Lisinopril) 5 Mg Tablet, (Reported) Entered as Reported by: ABRAHAM GAMINO on 12/20/211912 Methocarbamol (Methocarbamol) 750 Mg Tablet, 750 MG PO Q6-8HR Prescribed by: DANIELLA DYER on 01/18/22 1252 Naproxen (Naproxen) 500 Mg Tablet.dr, 500 MG PO BID Prescribed by: RENETTA NUR on 12/20/212109 Ondansetron (Ondansetron Odt) 4 Mg Tab.rapdis, 4 MG PO Q6H Prescribed by: DONALD GONZALEZ MD on 01/05/22 1529 Ondansetron (Ondansetron Odt) 4 Mg Tab.rapdis, 4 MG SL Q4H PRN for NAUSEA/VOMITING Prescribed by: Deirdre Sheets on 06/17/22 1357 Pregabalin (Pregabalin) 75 Mg Capsule, (Reported) Entered as Reported by: ABRAHAM GAMINO on 12/20/211912 Sulfamethoxazole/Trimethoprim (Bactrim Ds Tablet) 1 Each Tablet, 1 EACH PO BID Prescribed by: DANIELLA DYER on 12/09/21 1630 Syring W-Ndl,Disp,Insul,0.5 ml (Insulin Syringe) 31 Gauge X 5/16" Disp.syrin, (Reported), (DME) Entered as Reported by: ABRAHAM GAMINO on 12/20/211912 Tramadol HCl (Ultram) 50 Mg Tablet, 50 MG PO Q4H Prescribed by: RENETTA NUR on 12/20/212109 Tramadol HCl (Tramadol HCl) 50 Mg Tablet, 50-100 MG PO Q4H PRN for PAIN- BREAKTHROUGH Prescribed by: David Grey on 05/11/22 1444 [Albuterol] , (Reported) Entered as Reported by: ABRAHAM GAMINO on 12/20/211912 Review of Systems Review of Systems Constitutional: see HPI Past Ljvglxy-Ckjcer-Wuruzt Hx Patient Social History Tobacco Use?: No Substance use?: No Alcohol Use?: No Immunizations Up To Date First/Initial COVID19 Vaccinat: NONE Second COVID19 Vaccination Domo: NONE Third COVID19 Vaccination Date: NONE Past Medical History Surgery/Hospitalization HX: SHILPA BILAT EAR SURGERY (MULTIPLE) T&A ORTHOPEDIC DIABETIC TYPE I, htn, HIGH CHOLESTEROL Surgeries: Yes Adenoidectomy, Ear Surgery, Gallbladder, Tonsillectomy Respiratory: No Cardiac: Yes Hypertension Neurological: Yes Neuropathy Genitourinary: Yes (NO DIALYSIS) Renal Failure Gastrointestinal: Yes Diverticulosis Musculoskeletal: No Endocrine: Yes (TYPE 1 DIABETES) Diabetes, Insulin dep HEENT: Yes (S/P T&A; MULTIPLE SETS OF BMT'S) Cancer: No Psychosocial: No Integumentary: No Blood Disorders: No Family Medical History No Pertinent Family Hx Physical Exam Vital Signs Vital Signs - First Documented 06/17/22 11:13 Temp 36.7 Pulse 92 Resp 18 B/P (MAP) 135/93 (107) Pulse Ox 98 O2 Delivery Room Air Capillary Refill : Less Than 3 Seconds Height/Weight/BMI Height: '" Weight: lbs. oz. kg; 35.00 BMI Method: General Appearance: WD/WN, no apparent distress Neck: supple, normal inspection Respiratory: lungs clear, normal breath sounds, no respiratory distress, no accessory muscle use Cardiovascular: regular rate, rhythm, no edema, no gallop, no JVD, no murmur Gastrointestinal: normal bowel sounds, soft, tenderness (Mild bilateral upper quadrants, moderate bilateral lower quadrant) Extremities: normal range of motion, normal inspection Neurologic/Psychiatric: alert, normal mood/affect, oriented x 3 Skin: normal color, warm/dry Progress/Results/Core Measures Results/Orders Lab Results Laboratory Tests Test 06/17/22 11:40 06/17/22 11:50 06/17/22 13:45 Range/Units White Blood Count 7.9 4.3-11.0 10^3/uL Red Blood Count 4.54 4.30-5.52 10^6/uL Hemoglobin 13.8 13.3-17.7 g/dL Hematocrit 41 40-54 % Mean Corpuscular Volume 90 80-99 fL Mean Corpuscular Hemoglobin 30 25-34 pg Mean Corpuscular Hemoglobin Concent 34 32-36 g/dL Red Cell Distribution Width 12.9 10.0-14.5 % Platelet Count 193 130-400 10^3/uL Mean Platelet Volume 10.1 9.0-12.2 fL Immature Granulocyte % (Auto) 0 % Neutrophils (%) (Auto) 69 42-75 % Lymphocytes (%) (Auto) 20 12-44 % Monocytes (%) (Auto) 8 0-12 % Eosinophils (%) (Auto) 2 0-10 % Basophils (%) (Auto) 1 0-10 % Neutrophils # (Auto) 5.5 1.8-7.8 10^3/uL Lymphocytes # (Auto) 1.6 1.0-4.0 10^3/uL Monocytes # (Auto) 0.6 0.0-1.0 10^3/uL Eosinophils # (Auto) 0.2 0.0-0.3 10^3/uL Basophils # (Auto) 0.0 0.0-0.1 10^3/uL Immature Granulocyte # (Auto) 0.0 0.0-0.1 10^3/uL Sodium Level 134 L 135-145 MMOL/L Potassium Level 5.0 3.6-5.0 MMOL/L Chloride Level 102 98-107 MMOL/L Carbon Dioxide Level 20 L 21-32 MMOL/L Anion Gap 12 5-14 MMOL/L Blood Urea Nitrogen 13 7-18 MG/DL Creatinine 1.06 0.60-1.30 MG/DL Estimat Glomerular Filtration Rate 93 BUN/Creatinine Ratio 12 Glucose Level 351 H 70-105 MG/DL Calcium Level 8.6 8.5-10.1 MG/DL Corrected Calcium 8.6 8.5-10.1 MG/DL Total Bilirubin 0.8 0.1-1.0 MG/DL Aspartate Amino Transf (AST/SGOT) 52 H 5-34 U/L Alanine Aminotransferase (ALT/SGPT) 29 0-55 U/L Alkaline Phosphatase 195 H 40-136 U/L Total Protein 8.5 H 6.4-8.2 GM/DL Albumin 4.0 3.2-4.5 GM/DL Lipase 22 8-78 U/L Urine Color YELLOW Urine Clarity CLEAR Urine pH 6.0 5-9 Urine Specific [place] <=1.005 1.016-1.022 Urine Protein NEGATIVE NEGATIVE Urine Glucose (UA) 3+ H NEGATIVE Urine Ketones NEGATIVE NEGATIVE Urine Nitrite NEGATIVE NEGATIVE Urine Bilirubin NEGATIVE NEGATIVE Urine Urobilinogen 0.2 < = 1.0 MG/DL Urine Leukocyte Esterase NEGATIVE NEGATIVE Urine RBC (Auto) NEGATIVE NEGATIVE Urine RBC NONE /HPF Urine WBC NONE /HPF Urine Crystals NONE /LPF Urine Bacteria NEGATIVE /HPF Urine Casts NONE /LPF Urine Mucus NEGATIVE /LPF Urine Culture Indicated NO Glucometer 92 70-110 MG/DL My Orders Orders - DEIRDRE SHEETS LEARN TO SWIM INSTRUCTOR Ua Culture If Indicated (06/17/22 11:22) Comprehensive Metabolic Panel (06/17/22 11:28) Lipase (06/17/22 11:28) Ed Iv/Invasive Line Start (06/17/22 11:28) Cbc With Automated Diff (06/17/22 11:28) Ct Abdomen/Pelvis W (06/17/22 11:28) Ns Iv 1000 Ml (Sodium Chloride 0.9%) (06/17/22 11:30) Ondansetron Injection (Zofran Injectio (06/17/22 11:30) Fentanyl Inj (Sublimaze Injection) (06/17/22 11:28) Insulin (Regular) Human (Novolin R (Per (06/17/22 12:30) Ketorolac Injection (Toradol Injection) (06/17/22 12:45) Fentanyl Inj (Sublimaze Injection) (06/17/22 13:00) Iohexol Injection (Omnipaque 350 Mg/Ml 1 (06/17/22 13:15) Ns (Ivpb) (Sodium Chloride 0.9% Ivpb Bag (06/17/22 13:15) Accucheck Stat ONCE (06/17/22 13:36) Fentanyl Inj (Sublimaze Injection) (06/17/22 14:00) Medications Given in ED Vital Signs/I&O 06/17/22 06/17/22 06/17/22 06/17/22 11:13 11:48 12:58 14:07 Temp 36.7 36.7 36.7 Pulse 92 95 Resp 18 18 B/P (MAP) 135/93 (107) 118/72 Pulse Ox 98 98 O2 Delivery Room Air Room Air Blood Pressure Mean: 107 Progress Progress Note #1: Time: 11:30 Progress Note Patient seen and evaluated, resting on bed, no acute distress. Moderate distress with palpation of abdomen, generalized tenderness, worse in bilateral lower quadrants. Based on exam and symptoms, differential diagnoses includes but is not limited to gastroenteritis, diverticulitis, appendicitis, bowel obstruction, DKA. Workup initiated including CBC, CMP, lipase, UA, CT abdomen and pelvis. IV fluids, nausea, and pain medication ordered. Progress Note #2: Time: 13:21 Progress Note Labs reviewed. CBC grossly normal, WBC 7.9, hemoglobin 13.8, hematocrit 41. CMP shows slightly decreased sodium 134, slightly decreased CO2 20, no anion gap, glucose elevated at 351. IV insulin ordered. UA positive for 3+ glucose, negative for ketones, negative for infection. Waiting for results of CT scan. Progress Note #3: Time: 13:[address] report reviewed, no acute findings. Results discussed with patient. Discharge instructions and return precautions provided. Diagnostic Imaging Diagonstic Imaging: CT Plain Films/CT/US/NM/MRI: abdomen Comments [facility], [place] NAME: CARRIE DERAS [facility] REC#: [id number] PT STATUS: DEP ER : 1985 PHYSICIAN: DEIRDRE SHEETS APRN ADMIT DATE: 06/17/22/ER Signed Date of Exam:06/17/22 CT ABDOMEN/PELVIS W PROCEDURE: CT abdomen and pelvis with contrast. TECHNIQUE: Multiple contiguous axial images were obtained through the abdomen and pelvis after administration of intravenous contrast. Auto Exposure Controls were utilized during the CT exam to meet ALARA standards for radiation dose reduction. All CT scans use one or more of the following dose optimizing techniques: automated exposure control, MA and/or KvP adjustment based on patient size and exam type or iterative reconstruction. INDICATION: Abdominopelvic pain and bloating. COMPARISON: 01/05/2022. There is no bowel obstruction. There is no abnormal fecal loading. No bowel wall thickening. No perienteric or pericolonic edema. No ascites, abscess, hematoma or acute fluid collection. The stomach is mildly distended with ingested material. Gallbladder absent. No pathological bile duct dilatation. Spleen, adrenals and pancreas unremarkable. The unobstructed kidneys normal. The aorta is nonaneurysmal and patent. No ascites, abscess, hematoma or acute fluid collection. There is no diverticulitis. There are no findings of appendicitis. IMPRESSION: Stable unremarkable abdominopelvic CT. Dictated by: Dictated on workstation # [id number] Dict: 06/17/22 1319 Trans: 06/17/22 1721 [id number] Interpreted by: SKIP FIGUEROA Electronically signed by: SKIP FIGUEROA 06/17/22 1721 Departure Impression Primary Impression: Gastroenteritis Disposition: 01 HOME, SELF-CARE Condition: Stable Departure-Patient Inst. Decision time for Depature: 13:55 Referrals: [facility] [place] (PCP/Family) Primary Care Physician Patient Instructions: Viral Gastroenteritis in Adults Add. Discharge Instructions: Drink plenty of fluids, stay away from caffeinated and high sugar beverages. Take Bentyl as needed for abdominal pain. Take Zofran as needed for nausea or vomiting. Return for uncontrolled pain, recurrent vomiting, or any other new, concerning, worsening symptoms. All discharge instructions reviewed with patient and/or family. Voiced understanding. Scripts Ondansetron (Ondansetron Odt) 4 Mg Tab.rapdis 4 MG SL Q4H PRN for NAUSEA/VOMITING, #10 TAB 0 Refills Prov: DEIRDRE SHEETS APRN 06/17/22 Dicyclomine HCl (Dicyclomine HCl) 10 Mg Capsule 10 MG PO ACHS PRN for ABDOMINAL PAIN, #20 CAP 0 Refills Prov: DEIRDRE SHEETS APRN 06/17/22 DEIRDRE SHEETS APRN Jun 17, 2022 11:35
[2022-06-17 11:49] LABS: BASOPHILS % (AUTO) 1 % (0-10); EOSINOPHILS # (AUTO) 0.2 10^3/uL (0.0-0.3); EOSINOPHILS % (AUTO) 2 % (0-10); HEMATOCRIT 41 % (40-54); HEMOGLOBIN 13.8 g/dL (13.3-17.7); LYMPHOCYTES # (AUTO) 1.6 10^3/uL (1.0-4.0); LYMPHOCYTES % (AUTO) 20 % (12-44); MEAN CORPUSCULAR HEMOGLOBIN 30 pg (25-34); MEAN CORPUSCULAR HGB CONC 34 g/dL (32-36); MEAN CORPUSCULAR VOLUME 90 fL (80-99); MEAN PLATELET VOLUME 10.1 fL (9.0-12.2); MONOCYTES # (AUTO) 0.6 10^3/uL (0.0-1.0); MONOCYTES % (AUTO) 8 % (0-12); NEUTROPHILS # (AUTO) 5.5 10^3/uL (1.8-7.8); NEUTROPHILS % (AUTO) 69 % (42-75); PLATELET COUNT 193 10^3/uL (130-400); WHITE BLOOD COUNT 7.9 10^3/uL (4.3-11.0)
[2022-06-17 11:57] LABS: BILIRUBIN,URINE NEGATIVE (NEGATIVE); CLARITY,URINE CLEAR; COLOR,URINE YELLOW; GLUCOSE, URINE (UA) 3+ (NEGATIVE); KETONES,URINE NEGATIVE (NEGATIVE); LEUKOCYTE ESTERASE ,URINE NEGATIVE (NEGATIVE); NITRITE,URINE NEGATIVE (NEGATIVE); PROTEIN,URINE NEGATIVE (NEGATIVE)
[2022-06-17 12:07] LABS: CALCIUM 8.6 MG/DL (8.5-10.1)
[2022-06-17 12:08] LABS: TOTAL PROTEIN 8.5 GM/DL (6.4-8.2)
[2022-06-17 12:09] LABS: BACTERIA,URINE NEGATIVE /HPF
[2022-06-17 12:10] LABS: BILIRUBIN,TOTAL 0.8 MG/DL (0.1-1.0)
[2022-06-17 12:12] LABS: CREATININE SERUM 1.06 MG/DL (0.60-1.30)
[2022-06-17] MEDS ORDERED: inSUlin (REGULAR) HUMAN 1 UNIT/0.01 ML (CHARGE PER UNIT) IV ONE (12:30)
[2022-06-17] MEDS ORDERED: KETOROLAC 15 MG/ML VIAL IVP ONE (12:45)
[2022-06-17] MEDS ORDERED: fentaNYL INJ 100 MCG/2 ML AMP IVP ONE ×2 (13:00→14:00)
[2022-06-17] MEDS ORDERED: IOHEXOL 350 MG/ML 100 ML (OMNIPAQUE 350) VIAL IV ONE (13:15)
[2022-06-17] MEDS ORDERED: NS 100 ML (IVPB) BAG IV ONE (13:15)
--- NOTE | 2022-06-17 13:24 | Diagnostic Imaging Report ---
PROCEDURE: CT abdomen and pelvis with contrast. TECHNIQUE: Multiple contiguous axial images were obtained through the abdomen and pelvis after administration of intravenous contrast. Auto Exposure Controls were utilized during the CT exam to meet ALARA standards for radiation dose reduction. All CT scans use one or more of the following dose optimizing techniques: automated exposure control, MA and/or KvP adjustment based on patient size and exam type or iterative reconstruction. INDICATION: Abdominopelvic pain and bloating. COMPARISON: 01/05/2022. There is no bowel obstruction. There is no abnormal fecal loading. No bowel wall thickening. No perienteric or pericolonic edema. No ascites, abscess, hematoma or acute fluid collection. The stomach is mildly distended with ingested material. Gallbladder absent. No pathological bile duct dilatation. Spleen, adrenals and pancreas unremarkable. The unobstructed kidneys normal. The aorta is nonaneurysmal and patent. No ascites, abscess, hematoma or acute fluid collection. There is no diverticulitis. There are no findings of appendicitis. IMPRESSION: Stable unremarkable abdominopelvic CT. Dictated by: Dictated on workstation # [id number]
[2022-06-17] MEDS ORDERED: DICY10CA12 PO (13:57)
[2022-06-17] MEDS ORDERED: ONDA4TAB11 SL (13:57)
[2022-06-17 14:07] VITALS: BP 118/72
== END 2022-06-17 14:07 | disposition home or self-care (01) ==
LOC: EDUNIT# 11:07 → ER 11:08
DX: K52.9 Noninfective gastroenteritis and colitis, unspecified (principal); E10.9 Type 1 diabetes mellitus without complications; Z90.49 Acquired absence of other specified parts of digestive tract; Z28.310 Unvaccinated for COVID-19
CPT/HCPCS: 36415; 74177; 80053; 81000; 82947; 83690; 85025; 96361; 96374; 96375; 96376

== ENCOUNTER 2022-07-25 14:22 | Emergency (ER) | payer MEDICARE, MEDICAID ==
[~2022-07-25 14:22] MED LIST changes: +DICY10CA12 PO; +ONDA4TAB11 SL
[2022-07-25] MEDS ORDERED: NS IV 1000 ML 1,000 ML IV SCH (15:00)
--- NOTE | 2022-07-25 15:06 | ED General ---
General Chief Complaint: Cough/Cold/Flu Symptoms Stated Complaint: CHEST CONGESTION|RIB PAIN Nursing Triage Note: PT AMB TO FT1 WITH CC OF CHEST CONGESTION, COUGH, VOMITING AND SINUS PRESSURE X2 WEEKS. PT SEEN AT [facility] YESTERDAY FOR SAME CONCERN WAS GIVEN ANTIBIOTIC. PT STATES FELT WORSE TODAY. Source of Information: Patient Exam Limitations: No Limitations History of Present Illness Date Seen by Provider: Jul 25, 2022 Time Seen by Provider: 14:50 Initial Comments 37-year-old male presents to the ED with complaints of trouble breathing for the last 3 to 4 days. States he was seen at the [facility] clinic yesterday and started on doxycycline for a sinus infection. He reports his started having vomiting after starting the antibiotic. Reports approximately 4-5 episodes of vomiting. States he has been eating with the antibiotic. Reports he has also had several episodes of diarrhea today, states he has been to many to count. Denies fevers, but reports chills. Denies chest pain. Reports right upper quadrant abdominal pain and lower abdominal pain. He is a type I diabetic, has hypertension, and high cholesterol. He also reports that his blood sugars have been high. Allergies and Home Medications Allergies Coded Allergies: Penicillins (Verified Allergy, Mild, 10/13/21) morphine (Verified Allergy, Mild, 10/13/21) Patient Home Medication List Home Medication List Reviewed: Yes Albuterol Sulfate (Ventolin Hfa) 1 Puff Puff, 2 PUFF IH Q4H Prescribed by: Anup Hickman on 12/13/21 160 Blood Sugar Diagnostic (Onetouch Verio) 1 Each Strip, (Reported) Entered as Reported by: ABRAHAM GAMINO on 12/20/211912 Dicyclomine HCl (Dicyclomine HCl) 10 Mg Capsule, 10 MG PO ACHS PRN for ABDOMINAL PAIN Prescribed by: Deirdre Sheets on 06/17/22 1357 Doxycycline Hyclate (Doxycycline Hyclate) 100 Mg Tablet, 100 MG PO BID Prescribed by: Anup Hickman on 12/13/21 160 Ibuprofen (Ibuprofen) 600 Mg Tablet, 600 MG PO Q6H PRN for PAIN-MILD Prescribed by: David Grey on 06/04/22 1427 Insulin Aspart (Novolog Flexpen) 100 Unit/Ml (3 Ml) Solution, (Reported) Entered as Reported by: ABRAHAM GAMINO on 12/20/211912 Insulin Glargine,Hum.rec.anlog (Basaglar Kwikpen U-100) 100 Unit/Ml (3 Ml) Insuln.pen, (Reported) Entered as Reported by: ABRAHAM GAMINO on 12/20/211912 Lisinopril (Lisinopril) 5 Mg Tablet, (Reported) Entered as Reported by: ABRAHAM GAMINO on 12/20/211912 Methocarbamol (Methocarbamol) 750 Mg Tablet, 750 MG PO Q6-8HR Prescribed by: DANIELLA DYER on 01/18/22 125 Naproxen (Naproxen) 500 Mg Tablet.dr, 500 MG PO BID Prescribed by: RENETTA NUR on 12/20/212109 Ondansetron (Ondansetron Odt) 4 Mg Tab.rapdis, 4 MG PO Q6H Prescribed by: DONALD GONZALEZ MD on 01/05/22 1529 Ondansetron (Ondansetron Odt) 4 Mg Tab.rapdis, 4 MG SL Q4H PRN for NAUSEA/VOMITING Prescribed by: Deirdre Sheets on 06/17/22 1357 Ondansetron (Ondansetron Odt) 4 Mg Tab.rapdis, 4 MG SL Q4H PRN for NAUSEA/VOMITING Prescribed by: Deirdre Sheets on 07/25/22 1639 Pregabalin (Pregabalin) 75 Mg Capsule, (Reported) Entered as Reported by: ABRAHAM GAMINO on 12/20/211912 Sulfamethoxazole/Trimethoprim (Bactrim Ds Tablet) 1 Each Tablet, 1 EACH PO BID Prescribed by: DANIELLA DYER on 12/09/21 1630 Syring W-Ndl,Disp,Insul,0.5 ml (Insulin Syringe) 31 Gauge X 5/16" Disp.syrin, (Reported), (DME) Entered as Reported by: ABRAHAM GAMINO on 12/20/211912 Tramadol HCl (Ultram) 50 Mg Tablet, 50 MG PO Q4H Prescribed by: RENETTA NUR on 12/20/212109 Tramadol HCl (Tramadol HCl) 50 Mg Tablet, 50-100 MG PO Q4H PRN for PAIN- BREAKTHROUGH Prescribed by: David Grey on 05/11/22 1444 [Albuterol] , (Reported) Entered as Reported by: ABRAHAM GAMINO on 12/20/211912 Review of Systems Review of Systems Constitutional: see HPI Past Btbjmiw-Wzptxf-Lkwavd Hx Patient Social History Smokeless Tobacco Frequency: Current Everyday User Substance use?: No Alcohol Use?: No Immunizations Up To Date First/Initial COVID19 Vaccinat: NONE Second COVID19 Vaccination Domo: NONE Third COVID19 Vaccination Date: NONE Past Medical History Surgery/Hospitalization HX: SHILPA BILAT EAR SURGERY (MULTIPLE) T&A ORTHOPEDIC DIABETIC TYPE I, htn, HIGH CHOLESTEROL Surgeries: Yes Adenoidectomy, Ear Surgery, Gallbladder, Tonsillectomy Respiratory: No Cardiac: Yes Hypertension Neurological: Yes Neuropathy Genitourinary: Yes (NO DIALYSIS) Renal Failure Gastrointestinal: Yes Diverticulosis Musculoskeletal: No Endocrine: Yes (TYPE 1 DIABETES) Diabetes, Insulin dep HEENT: Yes (S/P T&A; MULTIPLE SETS OF BMT'S) Cancer: No Psychosocial: No Integumentary: No Blood Disorders: No Family Medical History No Pertinent Family Hx Physical Exam Vital Signs Vital Signs - First Documented 07/25/22 14:42 Pulse 80 Resp 18 B/P (MAP) 131/102 (112) Pulse Ox 97 O2 Delivery Room Air Capillary Refill : Less Than 3 Seconds Height, Weight, BMI Height: '" Weight: lbs. oz. kg; 35.00 BMI Method: General Appearance: No Apparent Distress, WD/WN Neck: Normal Inspection, Supple Respiratory: Lungs Clear, Normal Breath Sounds, No Accessory Muscle Use, No Respiratory Distress Cardiovascular: Regular Rate, Rhythm, No Edema, No Gallop, No JVD, No Murmur Gastrointestinal: Normal Bowel Sounds, Soft, Tenderness (Mid lower, left upper) Neurologic/Psychiatric: Alert, Normal Mood/Affect Skin: Normal Color, Warm/Dry Progress/Results/Core Measures Suspected Sepsis SIRS Temperature: Pulse: 80 Respiratory Rate: 18 Laboratory Tests 07/25/22 15:26: White Blood Count 7.3 Blood Pressure 131 /102 Mean: 112 Laboratory Tests 07/25/22 15:26: Creatinine 0.83, Platelet Count 191, Total Bilirubin 0.7 Results/Orders Lab Results Laboratory Tests Test 07/25/22 15:14 07/25/22 15:26 Range/Units Urine Color YELLOW Urine Clarity CLEAR Urine pH 6.5 5-9 Urine Specific [place] <=1.005 1.016-1.022 Urine Protein NEGATIVE NEGATIVE Urine Glucose (UA) NEGATIVE NEGATIVE Urine Ketones NEGATIVE NEGATIVE Urine Nitrite NEGATIVE NEGATIVE Urine Bilirubin NEGATIVE NEGATIVE Urine Urobilinogen 0.2 < = 1.0 MG/DL Urine Leukocyte Esterase NEGATIVE NEGATIVE Urine RBC (Auto) NEGATIVE NEGATIVE Urine RBC NONE /HPF Urine WBC RARE /HPF Urine Crystals NONE /LPF Urine Bacteria NEGATIVE /HPF Urine Casts NONE /LPF Urine Mucus NEGATIVE /LPF Urine Culture Indicated NO White Blood Count 7.3 4.3-11.0 10^3/uL Red Blood Count 4.40 4.30-5.52 10^6/uL Hemoglobin 13.7 13.3-17.7 g/dL Hematocrit 39 L 40-54 % Mean Corpuscular Volume 89 80-99 fL Mean Corpuscular Hemoglobin 31 25-34 pg Mean Corpuscular Hemoglobin Concent 35 32-36 g/dL Red Cell Distribution Width 12.6 10.0-14.5 % Platelet Count 191 130-400 10^3/uL Mean Platelet Volume 9.5 9.0-12.2 fL Immature Granulocyte % (Auto) 0 % Neutrophils (%) (Auto) 62 42-75 % Lymphocytes (%) (Auto) 27 12-44 % Monocytes (%) (Auto) 8 0-12 % Eosinophils (%) (Auto) 2 0-10 % Basophils (%) (Auto) 1 0-10 % Neutrophils # (Auto) 4.5 1.8-7.8 10^3/uL Lymphocytes # (Auto) 2.0 1.0-4.0 10^3/uL Monocytes # (Auto) 0.6 0.0-1.0 10^3/uL Eosinophils # (Auto) 0.2 0.0-0.3 10^3/uL Basophils # (Auto) 0.1 0.0-0.1 10^3/uL Immature Granulocyte # (Auto) 0.0 0.0-0.1 10^3/uL Sodium Level 141 135-145 MMOL/L Potassium Level 3.9 3.6-5.0 MMOL/L Chloride Level 105 98-107 MMOL/L Carbon Dioxide Level 27 21-32 MMOL/L Anion Gap 9 5-14 MMOL/L Blood Urea Nitrogen 4 L 7-18 MG/DL Creatinine 0.83 0.60-1.30 MG/DL Estimat Glomerular Filtration Rate 116 BUN/Creatinine Ratio 5 Glucose Level 101 70-105 MG/DL Calcium Level 8.8 8.5-10.1 MG/DL Corrected Calcium 8.8 8.5-10.1 MG/DL Total Bilirubin 0.7 0.1-1.0 MG/DL Aspartate Amino Transf (AST/SGOT) 22 5-34 U/L Alanine Aminotransferase (ALT/SGPT) 27 0-55 U/L Alkaline Phosphatase 169 H 40-136 U/L Total Protein 7.3 6.4-8.2 GM/DL Albumin 4.0 3.2-4.5 GM/DL Lipase 9 8-78 U/L My Orders Orders - DEIRDRE SHEETS APRN Comprehensive Metabolic Panel (07/25/22 15:00) Lipase (07/25/22 15:00) Ua Culture If Indicated (07/25/22 15:00) Cbc With Automated Diff (07/25/22 15:00) Ed Iv/Invasive Line Start (07/25/22 15:00) Ns Iv 1000 Ml (Sodium Chloride 0.9%) (07/25/22 15:00) Chest Pa/Lat (2 View) (07/25/22 15:00) Ketorolac Injection (Toradol Injection) (07/25/22 16:30) Medications Given in ED Current Medications Medications Dose Ordered Sig/Tuan Route Start Time Stop Time Status Last Admin Dose Admin Ketorolac Tromethamine 15 mg ONCE ONCE IVP 07/25/22 16:30 07/25/22 16:31 DC 07/25/22 16:47 15 MG Vital Signs/I&O 07/25/22 07/25/22 14:42 16:54 Pulse 80 74 Resp 18 18 B/P (MAP) 131/102 (112) 141/109 Pulse Ox 97 97 O2 Delivery Room Air Room Air Capillary Refill : Less Than 3 Seconds Blood Pressure Mean: 112 Progress Note : Time: 15:05 Progress Note Patient seen and evaluated, resting comfortably in recliner, no acute distress. Based on exam and symptoms, concern for pneumonia, DKA. Work-up initiated including CBC, CMP, lipase, UA, chest x-ray. IV fluids ordered. 1620 labs reviewed. CBC grossly normal, hematocrit slightly low 39. CMP grossly normal, blood sugar 101, alkaline phosphatase elevated 169. UA negative for ketones. Negative for infection. Chest x-ray negative for any acute cardiopulmonary findings. Patient requesting pain medication and nausea medication. Toradol and Zofran ordered. 1635 Results discussed with patient. Patient states he would like to go home. Will discharge with Zofran. Discharge instructions and return precautions provided. Departure Impression Primary Impression: Vomiting Additional Impressions: Sinusitis URI (upper respiratory infection) Disposition: HOME, SELF-CARE Condition: Stable Departure-Patient Inst. Decision time for Depature: 16:37 Referrals: ANIKA LABERT APRN (PCP/Family) Primary Care Physician Patient Instructions: Sinusitis, Adult (DC) Add. Discharge Instructions: Take Zofran, wait 30 minutes, then take your antibiotic. Try to push fluids. Return for uncontrolled vomiting, or any other new, concerning, or worsening symptoms. All discharge instructions reviewed with patient and/or family. Voiced understanding. Scripts Ondansetron (Ondansetron Odt) 4 Mg Tab.rapdis 4 MG SL Q4H PRN for NAUSEA/VOMITING, #20 TAB 0 Refills Prov: DEIRDRE SHEETS APRN 07/25/22 DEIRDRE SHEETS APRN Jul 25, 2022 15:06
[2022-07-25 15:23] LABS: BILIRUBIN,URINE NEGATIVE (NEGATIVE); CLARITY,URINE CLEAR; COLOR,URINE YELLOW; GLUCOSE, URINE (UA) NEGATIVE (NEGATIVE); KETONES,URINE NEGATIVE (NEGATIVE); LEUKOCYTE ESTERASE ,URINE NEGATIVE (NEGATIVE); NITRITE,URINE NEGATIVE (NEGATIVE); PH,URINE 6.5 (5-9); PROTEIN,URINE NEGATIVE (NEGATIVE)
[2022-07-25 15:33] LABS: BASOPHILS # (AUTO) 0.1 10^3/uL (0.0-0.1); BASOPHILS % (AUTO) 1 % (0-10); EOSINOPHILS # (AUTO) 0.2 10^3/uL (0.0-0.3); EOSINOPHILS % (AUTO) 2 % (0-10); HEMATOCRIT 39 % (40-54); HEMOGLOBIN 13.7 g/dL (13.3-17.7); LYMPHOCYTES % (AUTO) 27 % (12-44); MEAN CORPUSCULAR HEMOGLOBIN 31 pg (25-34); MEAN CORPUSCULAR HGB CONC 35 g/dL (32-36); MEAN CORPUSCULAR VOLUME 89 fL (80-99); MEAN PLATELET VOLUME 9.5 fL (9.0-12.2); MONOCYTES # (AUTO) 0.6 10^3/uL (0.0-1.0); MONOCYTES % (AUTO) 8 % (0-12); NEUTROPHILS # (AUTO) 4.5 10^3/uL (1.8-7.8); NEUTROPHILS % (AUTO) 62 % (42-75); PLATELET COUNT 191 10^3/uL (130-400); WHITE BLOOD COUNT 7.3 10^3/uL (4.3-11.0)
[2022-07-25 15:38] LABS: BACTERIA,URINE NEGATIVE /HPF; WBC,URINE RARE /HPF
[2022-07-25 15:40] LABS: POTASSIUM 3.9 MMOL/L (3.6-5.0)
[2022-07-25 15:41] LABS: CALCIUM 8.8 MG/DL (8.5-10.1)
[2022-07-25 15:43] LABS: TOTAL PROTEIN 7.3 GM/DL (6.4-8.2)
[2022-07-25 15:44] LABS: BILIRUBIN,TOTAL 0.7 MG/DL (0.1-1.0)
[2022-07-25 15:46] LABS: CREATININE SERUM 0.83 MG/DL (0.60-1.30)
--- NOTE | 2022-07-25 15:47 | Diagnostic Imaging Report ---
INDICATION: Shortness of air. COMPARISON: None available. TECHNIQUE: Frontal and lateral radiographs of the chest dated 07/25/2022. FINDINGS: The cardiac silhouette is within normal limits in size. No significant pulmonary vascular congestion. The lungs are clear of focal pulmonary opacity. No pleural effusion. No pneumothorax. Surgical clips within the right upper abdomen. No acute osseous abnormality. IMPRESSION: No acute cardiopulmonary abnormality. Dictated by: Dictated on workstation # [id number]
[2022-07-25] MEDS ORDERED: KETOROLAC 15 MG/ML VIAL IVP ONE (16:30)
[2022-07-25] MEDS ORDERED: ONDA4TAB11 SL (16:39)
[2022-07-25 16:54] VITALS: BP 141/109
== END 2022-07-25 16:53 | disposition home or self-care (01) ==
LOC: EDUNIT# 14:22 → ER 14:24
DX: J32.9 Chronic sinusitis, unspecified (principal); J06.9 Acute upper respiratory infection, unspecified; R11.2 Nausea with vomiting, unspecified; R74.8 Abnormal levels of other serum enzymes; F17.200 Nicotine dependence, unspecified, uncomplicated; Z28.310 Unvaccinated for COVID-19
CPT/HCPCS: 36415; 71046; 80053; 81000; 83690; 85025

== ENCOUNTER 2022-09-04 10:25 | Emergency (ER) | payer MEDICARE, MEDICAID ==
[~2022-09-04] VITALS: Ht 160 cm; Wt 92.0 kg
[2022-09-04 10:35] VITALS: BP 135/89
--- NOTE | 2022-09-04 11:29 | ED EENT ---
History of Present Illness General Chief Complaint: Oral/Throat Problems Stated Complaint: SORE THROAT | COUGH Nursing Triage Note: ARRIVED VIA AMB TO TRIAGE WITH COMPLAINTS OF SORE THROAT X3 DAYS. WAS TESTED FOR STREP IN THE CLINIC 3 DAYS AGO ET INTIAL ONE WAS NEG. ALSO COMPLAINS OF A COUGH AND HIGH BLOOD SUGARS. Source: patient Exam Limitations: no limitations (DEIRDRE SHEETS APRN) History of Present Illness Date Seen by Provider: September 04, 2022 Time Seen by Provider: 11:16 Initial Comments 37-year-old male presents to the ED with complaints of throat pain for the last 3 days. He also reports fevers and chills, cough with brown-colored phlegm. States he is having pain with eating and drinking, as well as intermittent headache. Denies any known sick contacts. He also states that his blood sugars have been running high, up to 400. Patient's Dexcom currently reading 308. He denies any runny nose, chest pain, shortness of air, abdominal pain, vomiting, diarrhea. (DEIRDRE SHEETS APRN) Allergies and Home Medications Allergies Coded Allergies: Penicillins (Verified Allergy, Mild, 10/13/21) morphine (Verified Allergy, Mild, 10/13/21) Patient Home Medication List Home Medication List Reviewed: Yes (DEIRDRE SHEETS APRN) Albuterol Sulfate (Ventolin Hfa) 1 Puff Puff, 2 PUFF IH Q4H Prescribed by: Anup Hickman on 12/13/21 1601 Blood Sugar Diagnostic (Onetouch Verio) 1 Each Strip, (Reported) Entered as Reported by: ABRAHAM GAMINO on 12/20/21 191 Dicyclomine HCl (Dicyclomine HCl) 10 Mg Capsule, 10 MG PO ACHS PRN for ABDOMINAL PAIN Prescribed by: Deirdre Sheets on 06/17/22 1357 Doxycycline Hyclate (Doxycycline Hyclate) 100 Mg Tablet, 100 MG PO BID Prescribed by: Anup Hickman on 12/13/21 1601 Ibuprofen (Ibuprofen) 600 Mg Tablet, 600 MG PO Q6H PRN for PAIN-MILD Prescribed by: David Grey on 06/04/22 1427 Insulin Aspart (Novolog Flexpen) 100 Unit/Ml (3 Ml) Solution, (Reported) Entered as Reported by: ABRAHAM GAIMNO on 12/20/211912 Insulin Glargine,Hum.rec.anlog (Basaglar Kwikpen U-100) 100 Unit/Ml (3 Ml) Insuln.pen, (Reported) Entered as Reported by: ABRAHAM GAMINO on 12/20/211912 Lisinopril (Lisinopril) 5 Mg Tablet, (Reported) Entered as Reported by: ABRAHAM GAMINO on 12/20/211912 Methocarbamol (Methocarbamol) 750 Mg Tablet, 750 MG PO Q6-8HR Prescribed by: DANIELLA DYER on 01/18/22 1252 Naproxen (Naproxen) 500 Mg Tablet.dr, 500 MG PO BID Prescribed by: RENETTA NUR on 12/20/212109 Ondansetron (Ondansetron Odt) 4 Mg Tab.rapdis, 4 MG PO Q6H Prescribed by: DONALD GONZALEZ MD on 01/05/22 1529 Ondansetron (Ondansetron Odt) 4 Mg Tab.rapdis, 4 MG SL Q4H PRN for NAUSEA/VOMITING Prescribed by: Deirdre Sheets on 06/17/22 1357 Ondansetron (Ondansetron Odt) 4 Mg Tab.rapdis, 4 MG SL Q4H PRN for NAUSEA/VOMITING Prescribed by: Deirdre Sheets on 07/25/22 1639 Pregabalin (Pregabalin) 75 Mg Capsule, (Reported) Entered as Reported by: ABRAHAM GAMINO on 12/20/211912 Sulfamethoxazole/Trimethoprim (Bactrim Ds Tablet) 1 Each Tablet, 1 EACH PO BID Prescribed by: DANIELLA DYER on 12/09/21 1630 Syring W-Ndl,Disp,Insul,0.5 ml (Insulin Syringe) 31 Gauge X 5/16" Disp.syrin, (Reported), (DME) Entered as Reported by: ABRAHAM GAMINO on 12/20/211912 Tramadol HCl (Ultram) 50 Mg Tablet, 50 MG PO Q4H Prescribed by: RENETTA NUR on 12/20/212109 Tramadol HCl (Tramadol HCl) 50 Mg Tablet, 50-100 MG PO Q4H PRN for PAIN- BREAKTHROUGH Prescribed by: David Grey on 05/11/22 1444 [Albuterol] , (Reported) Entered as Reported by: ABRAHAM GAMINO on 12/20/211912 Review of Systems Review of Systems Constitutional: see HPI (DEIRDRE SHEETS APRN) Past Cbyorop-Hhsspt-Chqapz Hx Patient Social History Tobacco Use?: Yes Substance use?: No Alcohol Use?: Yes Alcohol Frequency: Rarely (DEIRDRE SHEETS APRN) Immunizations Up To Date First/Initial COVID19 Vaccinat: NONE Second COVID19 Vaccination Doom: NONE Third COVID19 Vaccination Date: NONE (DEIRDRE SHEETS APRN) Past Medical History Surgery/Hospitalization HX: SHILPA BILAT EAR SURGERY (MULTIPLE) T&A ORTHOPEDIC DIABETIC TYPE I, htn, HIGH CHOLESTEROL Surgeries: Yes Adenoidectomy, Ear Surgery, Gallbladder, Tonsillectomy Respiratory: No Cardiac: Yes Hypertension Neurological: Yes Neuropathy Genitourinary: Yes (NO DIALYSIS) Renal Failure Gastrointestinal: Yes Diverticulosis Musculoskeletal: No Endocrine: Yes (TYPE 1 DIABETES) Diabetes, Insulin dep HEENT: Yes (S/P T&A; MULTIPLE SETS OF BMT'S) Cancer: No Psychosocial: No Integumentary: No Blood Disorders: No (DEIRDRE SHEETS APRN) Family Medical History No Pertinent Family Hx (DEIRDRE SHEETS APRN) Physical Exam Vital Signs Vital Signs - First Documented 09/04/22 10:35 Temp 37.1 Pulse 88 Resp 16 B/P (MAP) 135/89 (104) Pulse Ox 96 O2 Delivery Room Air (STEWART BRYAN MD) Height, Weight, BMI Height: '" Weight: lbs. oz. kg; 35.00 BMI Method: General Appearance: WD/WN, no apparent distress Ears: bilateral ear auricle normal, bilateral ear canal normal, bilateral ear TM normal Mouth/Throat: pharynx normal Neck: supple, normal inspection Cardiovascular: regular rate, rhythm Respiratory: lungs clear, normal breath sounds, no respiratory distress, no accessory muscle use Neurologic/Psychiatric: alert, normal mood/affect Skin: normal color, warm/dry (DEIRDRE SHEETS APRN) Progress/Results/Core Measures Results/Orders Lab Results Laboratory Tests Test 09/04/22 10:49 09/04/22 10:50 Range/Units Glucometer 253 H 70-110 MG/DL Urine Color YELLOW Urine Clarity CLEAR Urine pH 6.0 5-9 Urine Specific [place] 1.020 1.016-1.022 Urine Protein NEGATIVE NEGATIVE Urine Glucose (UA) 3+ H NEGATIVE Urine Ketones NEGATIVE NEGATIVE Urine Nitrite NEGATIVE NEGATIVE Urine Bilirubin NEGATIVE NEGATIVE Urine Urobilinogen 1.0 < = 1.0 MG/DL Urine Leukocyte Esterase NEGATIVE NEGATIVE Urine RBC (Auto) NEGATIVE NEGATIVE Urine RBC NONE /HPF Urine WBC RARE /HPF Urine Crystals NONE /LPF Urine Bacteria NEGATIVE /HPF Urine Casts NONE /LPF Urine Mucus NEGATIVE /LPF Urine Culture Indicated NO Influenza Type A (RT-PCR) Not Detected Not Detecte Influenza Type B (RT-PCR) Not Detected Not Detecte SARS-CoV-2 RNA (RT-PCR) Not Detected Not Detecte Group A Streptococcus Screen NEGATIVE NEGATIVE (STEWART BRYAN MD) My Orders Orders - STEWART BRYAN MD Rapid Strep A Screen (09/04/22 10:44) Covid 19 Inhouse Test (09/04/22 10:44) Influenza A And B By Pcr (09/04/22 10:44) Throat Culture Strep A Confirm (09/04/22 10:50) (STEWART BRYAN MD) Blood Pressure Mean: 104 [facility] Bedside Testing Finger Stick Blood Glucose: 253 Blood Glucose Action Taken: RN notified (DEIRDRE SHEETS APRN) Progress Progress Note : Time: 11:28 Progress Note Patient seen evaluated, resting comfortably in bed, no acute distress. Based on exam and symptoms, strep swabs ordered. Urinalysis ordered to check for ketones. 1157 COVID, flu, strep negative. Urinalysis negative for ketones or infection. I do not believe patient is in DKA at this time. Results discussed with patient. This is likely a viral pharyngitis. Patient directed to drink plenty water and take ibuprofen and Tylenol for pain. Discharge instructions and return precautions provided. (DEIRDRE SHEETS APRN) Departure Impression Primary Impression: Pharyngitis Disposition: 01 HOME, SELF-CARE Condition: Stable Departure-Patient Inst. Referrals: ANIKA ALBERT APRN (PCP/Family) Primary Care Physician Patient Instructions: Viral Pharyngitis (DC) Add. Discharge Instructions: Make sure you drink plenty of water or noncaffeinated, low sugar beverages. Take Tylenol or ibuprofen as needed for pain. Return to the ED for worsening or uncontrolled pain, tongue swelling, difficulty swallowing, change in voice, difficulty breathing, recurrent vomiting, or any other new, concerning, or worsening symptoms. All discharge instructions reviewed with patient and/or family. Voiced understanding. ATTENDING PHYSICIAN NOTE: I was physically present as attending physician in the emergency department during the care of this patient, but I was not directly involved in the decision making or delivery of care for this patient. (STEWART BRYAN MD) DEIRDRE SHEETS APRN September 04, 2022 11:29 STEWART BRYAN MD September 05, 2022 06:27
[2022-09-04 11:31] LABS: BILIRUBIN,URINE NEGATIVE (NEGATIVE); CLARITY,URINE CLEAR; COLOR,URINE YELLOW; GLUCOSE, URINE (UA) 3+ (NEGATIVE); KETONES,URINE NEGATIVE (NEGATIVE); LEUKOCYTE ESTERASE ,URINE NEGATIVE (NEGATIVE); NITRITE,URINE NEGATIVE (NEGATIVE); PROTEIN,URINE NEGATIVE (NEGATIVE)
[2022-09-04 11:50] LABS: BACTERIA,URINE NEGATIVE /HPF; WBC,URINE RARE /HPF
== END 2022-09-04 12:03 | disposition home or self-care (01) ==
LOC: EDUNIT# 10:25 → ER 10:27
DX: J02.9 Acute pharyngitis, unspecified (principal); E10.9 Type 1 diabetes mellitus without complications; Z28.310 Unvaccinated for COVID-19; Z20.822 Contact with and (suspected) exposure to COVID-19
CPT/HCPCS: 81000; 82947; 87430; 87636

== ENCOUNTER 2022-12-26 15:20 | Emergency (ER) | payer MEDICARE, MEDICAID ==
[~2022-12-26] VITALS: Ht 160 cm; Wt 91.0 kg
[~2022-12-26 15:20] MED LIST changes: +[UNRECOGNIZED DRUG - CODE]; -[UNRECOGNIZED DRUG - CODE]
[2022-12-26] MEDS ORDERED: SULF-221 PO (15:42)
--- NOTE | 2022-12-26 15:42 | ED Integumentary General ---
General Chief Complaint: Skin/Wound Problems Stated Complaint: KNOT ON NECK/NAUSEA Source: patient Exam Limitations: no limitations History of Present Illness Date Seen by Provider: Dec 26, 2022 Time Seen by Provider: 15:38 Initial Comments Patient is a 37-year-old male who presents the ED with a "lump" to the left posterior scalp/neck. This started this morning when he woke up. Had some pain to his neck. Patient felt a small "lump" this morning with pain. Reports warmth to the area. Denies of any specific injury. Patient reports associated nausea. Denies fever, chills, vomiting, diarrhea, visual changes, unilateral muscle weakness or sensory changes. History of MRSA. Denies of any drainage. Allergies and Home Medications Allergies Coded Allergies: Penicillins (Verified Allergy, Mild, 10/13/21) morphine (Verified Allergy, Mild, 10/13/21) Patient Home Medication List Home Medication List Reviewed: Yes Albuterol Sulfate (Ventolin Hfa) 1 Puff Puff, 2 PUFF IH Q4H Prescribed by: Anup Hickman on 12/13/21 1601 Blood Sugar Diagnostic (Onetouch Verio) 1 Each Strip, (Reported) Entered as Reported by: ABRAHAM GAMINO on 12/20/211912 Dicyclomine HCl (Dicyclomine HCl) 10 Mg Capsule, 10 MG PO ACHS PRN for ABDOMINAL PAIN Prescribed by: Deirdre Kamara on 06/17/22 1357 Doxycycline Hyclate (Doxycycline Hyclate) 100 Mg Tablet, 100 MG PO BID Prescribed by: Anup Hickman on 12/13/21 1601 Ibuprofen (Ibuprofen) 600 Mg Tablet, 600 MG PO Q6H PRN for PAIN-MILD Prescribed by: David Grey on 06/04/22 1427 Insulin Aspart (Novolog Flexpen) 100 Unit/Ml (3 Ml) Solution, (Reported) Entered as Reported by: ABRAHAM GAMINO on 12/20/211912 Insulin Glargine,Hum.rec.anlog (Basaglar Kwikpen U-100) 100 Unit/Ml (3 Ml) Insuln.pen, (Reported) Entered as Reported by: ABRAHAM GAMINO on 12/20/211912 Lisinopril (Lisinopril) 5 Mg Tablet, (Reported) Entered as Reported by: ABRAHAM GAMINO on 12/20/211912 Methocarbamol (Methocarbamol) 750 Mg Tablet, 750 MG PO Q6-8HR Prescribed by: DANIELLA DYER on 01/18/22 1252 Naproxen (Naproxen) 500 Mg Tablet.dr, 500 MG PO BID Prescribed by: RENETTA NUR on 12/20/212109 Ondansetron (Ondansetron Odt) 4 Mg Tab.rapdis, 4 MG PO Q6H Prescribed by: DONALD GONZALEZ MD on 01/05/22 1529 Ondansetron (Ondansetron Odt) 4 Mg Tab.rapdis, 4 MG SL Q4H PRN for NAUSEA/VOMITING Prescribed by: Deirdre Kamara on 06/17/22 1357 Ondansetron (Ondansetron Odt) 4 Mg Tab.rapdis, 4 MG SL Q4H PRN for NAUSEA/VOMITING Prescribed by: Deirdre Kamara on 07/25/22 1639 Pregabalin (Pregabalin) 75 Mg Capsule, (Reported) Entered as Reported by: ABRAHAM GAMINO on 12/20/211912 Sulfamethoxazole/Trimethoprim (Bactrim Ds Tablet) 1 Each Tablet, 1 EACH PO BID Prescribed by: DANIELLA DYER on 12/09/21 163 Sulfamethoxazole/Trimethoprim (Bactrim Ds Tablet) 800 Mg-160 Mg Tablet, 1 EACH PO BID Prescribed by: SAEED MONTAGUE on 12/26/22 1542 Syring W-Ndl,Disp,Insul,0.5 ml (Insulin Syringe) 31 Gauge X 5/16" Disp.syrin, (Reported), (DME) Entered as Reported by: ABRAHAM GAMINO on 12/20/211912 Tramadol HCl (Ultram) 50 Mg Tablet, 50 MG PO Q4H Prescribed by: RENETTA NUR on 12/20/212109 Tramadol HCl (Tramadol HCl) 50 Mg Tablet, 50-100 MG PO Q4H PRN for PAIN- BREAKTHROUGH Prescribed by: David Grey on 05/11/22 1444 [Albuterol] , (Reported) Entered as Reported by: ABRAHAM GAMINO on 12/20/211912 Review of Systems Review of Systems Constitutional: No chills, No diaphoresis EENTM: No hearing loss, No ear pain, No blurred vision, No double vision Respiratory: No cough Cardiovascular: No chest pain, No edema Gastrointestinal: No abdominal pain, No diarrhea, No nausea Genitourinary: No decreased output, No discharge, No frequency Musculoskeletal: No back pain, No joint pain, No joint swelling, No muscle pain Skin: change in color Psychiatric/Neurological: Headache All Other Systems Reviewed Negative Unless Noted: Yes Past Yrhqwtl-Axibnr-Hjvowq Hx Patient Social History Tobacco Use?: No Smoking Status: Former Smoker Smokeless Tobacco Frequency: Current Everyday User Use of E-Cig and/or Vaping dev: No Substance use?: No Alcohol Use?: Yes Alcohol Frequency: Rarely Pt feels they are or have been: No Immunizations Up To Date First/Initial COVID19 Vaccinat: NONE Second COVID19 Vaccination Domo: NONE Third COVID19 Vaccination Date: NONE Past Medical History Surgery/Hospitalization HX: SHILPA BILAT EAR SURGERY (MULTIPLE) T&A ORTHOPEDIC DIABETIC TYPE I, htn, HIGH CHOLESTEROL Surgeries: Yes Adenoidectomy, Ear Surgery, Gallbladder, Tonsillectomy Respiratory: No Cardiac: Yes Hypertension Neurological: Yes Neuropathy Genitourinary: Yes (NO DIALYSIS) Renal Failure Gastrointestinal: Yes Diverticulosis Musculoskeletal: No Endocrine: Yes (TYPE 1 DIABETES) Diabetes, Insulin dep HEENT: Yes (S/P T&A; MULTIPLE SETS OF BMT'S) Cancer: No Psychosocial: No Integumentary: No Blood Disorders: No Family Medical History No Pertinent Family Hx Physical Exam Vital Signs Vital Signs - First Documented 12/26/22 15:25 Temp 36.9 Pulse 89 Resp 18 B/P (MAP) 133/97 (109) Pulse Ox 98 Capillary Refill : General Appearance: WD/WN, no apparent distress HEENT: PERRL/EOMI, normal ENT inspection, TMs normal, pharynx normal Neck: non-tender, full range of motion, supple Cardiovascular: regular rate, rhythm, no edema, no gallop, no JVD Respiratory: chest non-tender, lungs clear, normal breath sounds, no respiratory distress, no accessory muscle use Gastrointestinal: normal bowel sounds, non tender, soft, no organomegaly Back: normal inspection, no CVA tenderness Extremities: normal range of motion, non-tender, normal inspection, no pedal edema, no calf tenderness 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 Localized erythema. No function of mass. No free movable nodule) Progress/Results/Core Measures Results/Orders Vital Signs/I&O 12/26/22 15:25 Temp 36.9 Pulse 89 Resp 18 B/P (MAP) 133/97 (109) Pulse Ox 98 Departure Communication (PCP) Reviewed previous ER visits, H&P, lab testing. Type I diabetic. Presents ED with a "lump" occipital left posterior scalp. On exam concern for developing folliculitis. Small papule with localized induration and erythema. This is not fluctuant enough for incision and drainage. This may continue to get worse and develop into more of an abscess. Appears early in the process. History of MRSA. Discussed with patient recommend topical Neosporin. Will discharge with Bactrim to cover MRSA. Recommend warm compresses. If increasing size pain redness to return back to ED for further evaluation. Follow-up your PCP in 2 days for reevaluation. There is no evidence of erythematous streaking. Normal active range of motion of the cervical spine. No injury or trauma. Vital signs stable Impression Primary Impression: Folliculitis Disposition: 01 HOME, SELF-CARE Condition: Stable Departure-Patient Inst. Decision time for Depature: 15:41 Referrals: ANIKA ALBERT APRN (PCP/Family) Primary Care Physician Patient Instructions: Folliculitis Add. Discharge Instructions: Take antibiotics as prescribed. Warm compresses. If increased size redness to return back to ED for further evaluation. Follow-up with your PCP in 2 days for reevaluation All discharge instructions reviewed with patient and/or family. Voiced understanding. Scripts Sulfamethoxazole/Trimethoprim (Bactrim Ds Tablet) 800 Mg-160 Mg Tablet 1 EACH PO BID for 7 Days, #14 TAB Prov: LISET HALEY 12/26/22 LISET HALEY Dec 26, 2022 15:42
[2022-12-26 15:46] VITALS: BP 133/97
== END 2022-12-26 15:46 | disposition home or self-care (01) ==
LOC: EDUNIT# 15:20 → ER 15:22
DX: L73.9 Follicular disorder, unspecified (principal); E10.9 Type 1 diabetes mellitus without complications; F17.200 Nicotine dependence, unspecified, uncomplicated; Z88.0 Allergy status to penicillin; Z28.310 Unvaccinated for COVID-19
CPT/HCPCS: 99281

== ENCOUNTER 2023-01-10 10:45 | Emergency (ER) | payer MEDICARE, MEDICAID ==
[~2023-01-10] VITALS: Ht 160 cm; Wt 88.0 kg
[~2023-01-10 10:45] MED LIST changes: +DICY-11 PO; -DICY10CA12 PO; +SULF-221 PO
--- NOTE | 2023-01-10 11:39 | ED EENT ---
History of Present Illness General Chief Complaint: General Problems/Pain Stated Complaint: RIGHT EYE & BLOOD SUGAR PROBLEMS Nursing Triage Note: PT AMB TO TRIAGE, PT CO OF R EYE PAIN 02/09. STATES EYE IS WATERING, HAS BLURRED VISION. PT STATES BS ELEVATED TODAY. BLOOD SUGAR 310 AT THIS X. PT GETS 1.8U Q HR. PT BS WAS 400 THIS AM, AT 1015 HE STARTED GETTING 11.8U. Source: patient Exam Limitations: no limitations History of Present Illness Date Seen by Provider: Jan 10, 2023 Time Seen by Provider: 11:22 Initial Comments 37-year-old male presents to the ER with complaint of right eye pain with burning, itching, and clear drainage starting early this morning around 3 AM. He states that he has been trying cold and warm compresses without relief. He denies known injury to his eye, states he did not get anything in his eye. Patient reports that his blood sugars have also been high today, states this morning at 3 AM it was 424. Reports blood sugars now up to 276. He states that yesterday his blood sugars were in the 150s. He denies any recent illness, denies fevers, abdominal pain, nausea, vomiting. Past medical history includes type 1 diabetes, hypertension, hyperlipidemia, hypothyroidism. Allergies and Home Medications Allergies Coded Allergies: Penicillins (Verified Allergy, Mild, 10/13/21) morphine (Verified Allergy, Mild, 10/13/21) Patient Home Medication List Home Medication List Reviewed: Yes Albuterol Sulfate (Ventolin Hfa) 1 Puff Puff, 2 PUFF IH Q4H Prescribed by: Anup Hickman on 12/13/21 1601 Blood Sugar Diagnostic (Onetouch Verio) 1 Each Strip, (Reported) Entered as Reported by: ABRAHAM GAMINO on 12/20/21 191 Dicyclomine HCl (Dicyclomine HCl) 10 Mg Capsule, 10 MG PO ACHS PRN for ABDOMINAL PAIN Prescribed by: Deirdre Kamara on 06/17/22 1357 Doxycycline Hyclate (Doxycycline Hyclate) 100 Mg Tablet, 100 MG PO BID Prescribed by: Anup Hickman on 12/13/21 1601 Ibuprofen (Ibuprofen) 600 Mg Tablet, 600 MG PO Q6H PRN for PAIN-MILD Prescribed by: David Grey on 06/04/22 1427 Insulin Aspart (Novolog Flexpen) 100 Unit/Ml (3 Ml) Solution, (Reported) Entered as Reported by: ABRAHAM GAMINO on 12/20/211912 Insulin Glargine,Hum.rec.anlog (Basaglar Kwikpen U-100) 100 Unit/Ml (3 Ml) Insuln.pen, (Reported) Entered as Reported by: ABRAHAM GAMINO on 12/20/211912 Lisinopril (Lisinopril) 5 Mg Tablet, (Reported) Entered as Reported by: ABRAHAM GAMINO on 12/20/211912 Methocarbamol (Methocarbamol) 750 Mg Tablet, 750 MG PO Q6-8HR Prescribed by: DANIELLA DYER on 01/18/22 1252 Naproxen (Naproxen) 500 Mg Tablet.dr, 500 MG PO BID Prescribed by: RENETTA NUR on 12/20/212109 Ondansetron (Ondansetron Odt) 4 Mg Tab.rapdis, 4 MG PO Q6H Prescribed by: DONALD GONZALEZ MD on 01/05/22 1529 Ondansetron (Ondansetron Odt) 4 Mg Tab.rapdis, 4 MG SL Q4H PRN for NAUSEA/VOMITING Prescribed by: Deirdre Kamara on 06/17/22 1357 Ondansetron (Ondansetron Odt) 4 Mg Tab.rapdis, 4 MG SL Q4H PRN for NAUSEA/VOMITING Prescribed by: Deirdre Kamara on 07/25/22 1639 Polymyxin B Sulf/Trimethoprim (Polymyxin B-Tmp Eye Drops) 10,000 Unit-1 Mg/Ml Drops, 1 DROP OP Q3H Prescribed by: Deirdre Kamara on 01/10/23 1203 Pregabalin (Pregabalin) 75 Mg Capsule, (Reported) Entered as Reported by: ABRAHAM GAMINO on 12/20/211912 Sulfamethoxazole/Trimethoprim (Bactrim Ds Tablet) 1 Each Tablet, 1 EACH PO BID Prescribed by: DANIELLA DYER on 12/09/21 1630 Sulfamethoxazole/Trimethoprim (Bactrim Ds Tablet) 800 Mg-160 Mg Tablet, 1 EACH PO BID Prescribed by: SAEED MONTAGUE on 12/26/22 1542 Syring W-Ndl,Disp,Insul,0.5 ml (Insulin Syringe) 31 Gauge X 5/16" Disp.syrin, (Reported), (DME) Entered as Reported by: ABRAHAM GAMINO on 12/20/211912 Tramadol HCl (Ultram) 50 Mg Tablet, 50 MG PO Q4H Prescribed by: RENETTA NUR on 12/20/212109 Tramadol HCl (Tramadol HCl) 50 Mg Tablet, 50-100 MG PO Q4H PRN for PAIN- BREAKTHROUGH Prescribed by: David Gery on 05/11/22 1444 [Albuterol] , (Reported) Entered as Reported by: ABRAHAM GAMINO on 12/20/211912 Review of Systems Review of Systems Constitutional: see HPI Past Dlcddew-Zhfzdz-Iazwmp Hx Patient Social History Tobacco Use?: No Substance use?: No Alcohol Use?: No Pt feels they are or have been: No Immunizations Up To Date First/Initial COVID19 Vaccinat: NONE Second COVID19 Vaccination Domo: NONE Third COVID19 Vaccination Date: NONE Past Medical History Surgery/Hospitalization HX: SHILPA BILAT EAR SURGERY (MULTIPLE) T&A ORTHOPEDIC DIABETIC TYPE I, htn, HIGH CHOLESTEROL Surgeries: Yes Adenoidectomy, Ear Surgery, Gallbladder, Tonsillectomy Respiratory: No Cardiac: Yes Hypertension Neurological: Yes Neuropathy Genitourinary: Yes (NO DIALYSIS) Renal Failure Gastrointestinal: Yes Diverticulosis Musculoskeletal: No Endocrine: Yes (TYPE 1 DIABETES) Diabetes, Insulin dep HEENT: Yes (S/P T&A; MULTIPLE SETS OF BMT'S) Cancer: No Psychosocial: No Integumentary: No Blood Disorders: No Family Medical History No Pertinent Family Hx Visual Acuity : Eye Location: Right Vision Acuity Degree: 20/40 Physical Exam Height, Weight, BMI Height: '" Weight: lbs. oz. kg; 34.00 BMI Method: General Appearance: WD/WN, no apparent distress Eyes: right eye conjunctival inflammation, right eye lid inflammation, right eye other (Clear drainage); bilateral eye PERRL Neck: supple, normal inspection Cardiovascular: regular rate, rhythm Respiratory: lungs clear, normal breath sounds, no respiratory distress, no accessory muscle use Neurologic/Psychiatric: alert, normal mood/affect Skin: normal color, warm/dry Progress/Results/Core Measures Results/Orders Lab Results Laboratory Tests Test 01/10/23 11:37 Range/Units Urine Color YELLOW Urine Clarity CLEAR Urine pH 5.5 5-9 Urine Specific [place] 1.015 L 1.016-1.022 Urine Protein NEGATIVE NEGATIVE Urine Glucose (UA) 3+ H NEGATIVE Urine Ketones NEGATIVE NEGATIVE Urine Nitrite NEGATIVE NEGATIVE Urine Bilirubin NEGATIVE NEGATIVE Urine Urobilinogen 0.2 < = 1.0 MG/DL Urine Leukocyte Esterase NEGATIVE NEGATIVE Urine RBC (Auto) NEGATIVE NEGATIVE Urine RBC NONE /HPF Urine WBC RARE /HPF Urine Crystals NONE /LPF Urine Bacteria NEGATIVE /HPF Urine Casts NONE /LPF Urine Mucus SMALL H /LPF Urine Culture Indicated NO My Orders Orders - DEIRDRE ROMAN APRN Urinalysis (01/10/23 11:31) Progress Progress Note : Progress Note Patient seen and evaluated, resting comfortably in recliner, no acute distress. Based on exam and symptoms, this is conjunctivitis of the right eye. It is likely viral based on symptoms, but will prescribe a antibiotic eyedrop in case it is bacterial. Will obtain a urinalysis to check for ketones prior to drawing any labs on patient. 1200 urinalysis negative for ketones or infection. I do not think patient is in DKA. Results discussed with patient. Will discharge with eyedrops. Discharge instructions and return precautions provided. Departure Impression Primary Impression: Conjunctivitis Disposition: 01 HOME, SELF-CARE Condition: Stable Departure-Patient Inst. Decision time for Depature: 12:01 Referrals: ANIKA ALBERT APRN (PCP/Family) Primary Care Physician Patient Instructions: Conjunctivitis ([facility]) ED Add. Discharge Instructions: Use 1 eyedrop in right eye every 3 hours while awake for the next 7 days. Follow-up with your primary care provider regarding your elevated blood sugar. Return for new, concerning, or worsening symptoms. All discharge instructions reviewed with patient and/or family. Voiced understanding. Scripts Polymyxin B Sulf/Trimethoprim (Polymyxin B-Tmp Eye Drops) 10,000 Unit-1 Mg/Ml Drops 1 DROP OP Q3H for 7 Days, #1 EA 0 Refills 1 drop in affected eye every 3 hours while awake for 7 days Prov: DEIRDRE ROMAN APRN 01/10/23 DEIRDRE ROMAN APRN Jan 10, 2023 11:39
[2023-01-10 11:56] LABS: CLARITY,URINE CLEAR; COLOR,URINE YELLOW; GLUCOSE, URINE (UA) 3+ (NEGATIVE); PH,URINE 5.5 (5-9); PROTEIN,URINE NEGATIVE (NEGATIVE)
[2023-01-10 11:57] LABS: BACTERIA,URINE NEGATIVE /HPF; BILIRUBIN,URINE NEGATIVE (NEGATIVE); KETONES,URINE NEGATIVE (NEGATIVE); LEUKOCYTE ESTERASE ,URINE NEGATIVE (NEGATIVE); NITRITE,URINE NEGATIVE (NEGATIVE); WBC,URINE RARE /HPF
[2023-01-10] MEDS ORDERED: POLY10DR20 OP (12:03)
== END 2023-01-10 12:11 | disposition home or self-care (01) ==
LOC: EDUNIT# 10:45 → ER 10:47
DX: H10.9 Unspecified conjunctivitis (principal); E10.65 Type 1 diabetes mellitus with hyperglycemia; Z28.310 Unvaccinated for COVID-19; Z88.0 Allergy status to penicillin
CPT/HCPCS: 81000; 99282

== ENCOUNTER 2023-03-20 14:43 | Emergency (ER) | payer MEDICARE, MEDICAID ==
[~2023-03-20] VITALS: Ht 160 cm; Wt 94.8 kg
[~2023-03-20 14:43] MED LIST changes: +PANT40TA2 PO; +POLY10DR20 OP; -PREG75CA75; +PREG75CA76; +SUCR1TAB36 PO
[2023-03-20] MEDS ORDERED: NS IV 1000 ML 1,000 ML IV SCH (15:15)
[2023-03-20] MEDS ORDERED: ONDANSETRON INJECTION 4 MG/2 ML (SDV) IVP ONE (15:15)
[2023-03-20] MEDS ORDERED: fentaNYL INJECTION 100 MCG/2 ML VIAL IVP ONE ×2 (15:15→17:00)
--- NOTE | 2023-03-20 15:31 | ED Abdominal Pain ---
General Chief Complaint: Abdominal/GI Problems Stated Complaint: AB PAIN/FEVER Nursing Triage Note: PT AMB TO FT WITH C/O RUNNING A FEVER LAST NIGHT AND VOMITTING. PT C/O RLQ PAIN Source of Information: Patient Exam Limitations: No Limitations (DEIRDRE ROMAN APRN) History of Present Illness Date Seen by Provider: Mar 20, 2023 Time Seen by Provider: 14:58 Initial Comments 38-year-old male presents to the ER with complaint of fever, vomiting, abdominal pain starting last night. He complains of pain in bilateral lower quadrants as well as right upper quadrant. He reports that last night around midnight his temperature was 101.0. He reports he has had approximately 3 soft stools, denies watery stool. Patient is a type I diabetic, states his blood sugars have been 250-300 today. His insulin pump ran out on his way to the hospital today. He denies dysuria, states he has been urinating more frequently. Other past medical history includes hyperlipidemia and hypertension. (DEIRDRE ROMAN APRN) Allergies and Home Medications Allergies Coded Allergies: Penicillins (Verified Allergy, Mild, 10/13/21) morphine (Verified Allergy, Mild, 10/13/21) Patient Home Medication List Home Medication List Reviewed: Yes (DEIRDRE ROMAN APRN) Albuterol Sulfate (Ventolin Hfa) 1 Puff Puff, 2 PUFF IH Q4H Prescribed by: Anup Hickman on 12/13/21 160 Blood Sugar Diagnostic (Onetouch Verio) 1 Each Strip, (Reported) Entered as Reported by: ABRAHAM GAMINO on 12/20/211912 Dicyclomine HCl (Dicyclomine HCl) 10 Mg Capsule, 10 MG PO ACHS PRN for ABDOMINAL PAIN Prescribed by: Deirdre Kamara on 06/17/22 1357 Doxycycline Hyclate (Doxycycline Hyclate) 100 Mg Tablet, 100 MG PO BID Prescribed by: Anup Hickman on 12/13/21 160 Ibuprofen (Ibuprofen) 600 Mg Tablet, 600 MG PO Q6H PRN for PAIN-MILD Prescribed by: David Grey on 06/04/22 1427 Insulin Aspart (Novolog Flexpen) 100 Unit/Ml (3 Ml) Solution, (Reported) Entered as Reported by: ABRAHAM GAMINO on 12/20/211912 Insulin Glargine,Hum.rec.anlog (Basaglar Kwikpen U-100) 100 Unit/Ml (3 Ml) Insuln.pen, (Reported) Entered as Reported by: ABRAHAM GAMINO on 12/20/211912 Lisinopril (Lisinopril) 5 Mg Tablet, (Reported) Entered as Reported by: ABRAHAM GAMINO on 12/20/211912 Methocarbamol (Methocarbamol) 750 Mg Tablet, 750 MG PO Q6-8HR Prescribed by: DANIELLA DYER on 01/18/22 1252 Naproxen (Naproxen) 500 Mg Tablet.dr, 500 MG PO BID Prescribed by: RENETTA NUR on 12/20/21 211 Ondansetron (Ondansetron Odt) 4 Mg Tab.rapdis, 4 MG PO Q6H Prescribed by: DONALD GONZALEZ MD on 01/05/22 1529 Ondansetron (Ondansetron Odt) 4 Mg Tab.rapdis, 4 MG SL Q4H PRN for NAUSEA/VOMITING Prescribed by: Deirdre Kamara on 06/17/22 1357 Ondansetron (Ondansetron Odt) 4 Mg Tab.rapdis, 4 MG SL Q4H PRN for NAUSEA/VOMITING Prescribed by: Deirdre Kamara on 07/25/22 1639 Pantoprazole Sodium (Protonix) 40 Mg Tablet.dr, 40 MG PO DAILY Prescribed by: SAEED MONTAGUE on 01/25/23 1655 Polymyxin B Sulf/Trimethoprim (Polymyxin B-Tmp Eye Drops) 10,000 Unit-1 Mg/Ml Drops, 1 DROP OP Q3H Prescribed by: Deirdre Kamara on 01/10/23 1203 Pregabalin (Pregabalin) 75 Mg Capsule, (Reported) Entered as Reported by: ABRAHAM GAMINO on 12/20/211912 Sucralfate (Carafate) 1 Gram Tablet, 1 GM PO QID Prescribed by: SAEED MONTAGUE on 01/25/23 1655 Sulfamethoxazole/Trimethoprim (Bactrim Ds Tablet) 1 Each Tablet, 1 EACH PO BID Prescribed by: DANIELLA DYER on 12/09/21 1630 Sulfamethoxazole/Trimethoprim (Bactrim Ds Tablet) 800 Mg-160 Mg Tablet, 1 EACH PO BID Prescribed by: SAEED MONTAGUE on 12/26/22 1542 Syring W-Ndl,Disp,Insul,0.5 ml (Insulin Syringe) 31 Gauge X 5/16" Disp.syrin, (Reported), (DME) Entered as Reported by: ABRAHAM GAMINO on 12/20/211912 Tramadol HCl (Ultram) 50 Mg Tablet, 50 MG PO Q4H Prescribed by: RENETTA NUR on 12/20/212109 Tramadol HCl (Tramadol HCl) 50 Mg Tablet, 50-100 MG PO Q4H PRN for PAIN- BREAKTHROUGH Prescribed by: David Grey on 05/11/22 1444 [Albuterol] , (Reported) Entered as Reported by: ABRAHAM GAMINO on 12/20/211912 Review of Systems Review of Systems Constitutional: see HPI (DEIRDRE ROMAN APRN) Past Smpvonv-Njpwzq-Laurlq Hx Patient Social History Tobacco Use?: No Use of E-Cig and/or Vaping dev: Yes E-Cig or Vaping type used: Nicotine Substance use?: No Alcohol Use?: No Pt feels they are or have been: No (DEIRDRE ROMAN APRN) Immunizations Up To Date First/Initial COVID19 Vaccinat: NONE Second COVID19 Vaccination Domo: NONE Third COVID19 Vaccination Date: NONE (DEIRDRE ROMAN APRN) Past Medical History Surgery/Hospitalization HX: SHILPA BILAT EAR SURGERY (MULTIPLE) T&A ORTHOPEDIC DIABETIC TYPE I, htn, HIGH CHOLESTEROL Surgeries: Yes Adenoidectomy, Ear Surgery, Gallbladder, Tonsillectomy Respiratory: No Cardiac: Yes Hypertension Neurological: Yes Neuropathy Genitourinary: Yes (NO DIALYSIS) Renal Failure Gastrointestinal: Yes Diverticulosis Musculoskeletal: No Endocrine: Yes (TYPE 1 DIABETES) Diabetes, Insulin dep HEENT: Yes (S/P T&A; MULTIPLE SETS OF BMT'S) Cancer: No Psychosocial: No Integumentary: No Blood Disorders: No (DEIRDRE ROMAN APRN) Family Medical History No Pertinent Family Hx (DEIRDRE ROMAN APRN) Physical Exam Vital Signs Vital Signs - First Documented 11/18/23 15:05 Temp 36.8 Pulse 94 Resp 16 B/P (MAP) 125/97 (106) Pulse Ox 98 O2 Delivery Room Air (STEWART BRYAN MD) Vital Signs Capillary Refill : (DEIRDRE ROMAN APRN) Height/Weight/BMI Height: '" Weight: lbs. oz. kg; 37.00 BMI Method: General Appearance: WD/WN, no apparent distress Neck: supple, normal inspection Respiratory: lungs clear, normal breath sounds, no respiratory distress, no accessory muscle use Cardiovascular: regular rate, rhythm Gastrointestinal: normal bowel sounds, soft, tenderness (Left lower quadrant, right lower quadrant, right upper quadrant) Extremities: normal range of motion, normal inspection Neurologic/Psychiatric: alert, normal mood/affect Skin: normal color, warm/dry (DEIRDRE ROMAN APRN) Progress/Results/Core Measures Results/Orders Lab Results Laboratory Tests Test 03/20/23 15:23 03/20/23 15:30 Range/Units White Blood Count 10.5 4.3-11.0 10^3/uL Red Blood Count 5.01 4.30-5.52 10^6/uL Hemoglobin 15.5 13.3-17.7 g/dL Hematocrit 45 40-54 % Mean Corpuscular Volume 90 80-99 fL Mean Corpuscular Hemoglobin 31 25-34 pg Mean Corpuscular Hemoglobin Concent 34 32-36 g/dL Red Cell Distribution Width 12.9 10.0-14.5 % Platelet Count 279 130-400 10^3/uL Mean Platelet Volume 9.5 9.0-12.2 fL Immature Granulocyte % (Auto) 1 % Neutrophils (%) (Auto) 62 42-75 % Lymphocytes (%) (Auto) 26 12-44 % Monocytes (%) (Auto) 8 0-12 % Eosinophils (%) (Auto) 3 0-10 % Basophils (%) (Auto) 1 0-10 % Neutrophils # (Auto) 6.6 1.8-7.8 10^3/uL Lymphocytes # (Auto) 2.8 1.0-4.0 10^3/uL Monocytes # (Auto) 0.8 0.0-1.0 10^3/uL Eosinophils # (Auto) 0.3 0.0-0.3 10^3/uL Basophils # (Auto) 0.1 0.0-0.1 10^3/uL Immature Granulocyte # (Auto) 0.1 0.0-0.1 10^3/uL Venous Blood pH 7.46 H 7.31-7.41 Venous Blood Partial Pressure CO2 43 40-52 MMHG Venous Blood HCO3 31 H 22-28 MMOL/L Sodium Level 137 135-145 MMOL/L Potassium Level 4.2 3.6-5.0 MMOL/L Chloride Level 102 98-107 MMOL/L Carbon Dioxide Level 25 21-32 MMOL/L Anion Gap 10 5-14 MMOL/L Blood Urea Nitrogen 7 7-18 MG/DL Creatinine 0.88 0.60-1.30 MG/DL Estimat Glomerular Filtration Rate 113 BUN/Creatinine Ratio 8 Glucose Level 170 H 70-105 MG/DL Calcium Level 9.3 8.5-10.1 MG/DL Corrected Calcium 9.1 8.5-10.1 MG/DL Total Bilirubin 0.4 0.1-1.0 MG/DL Aspartate Amino Transf (AST/SGOT) 27 5-34 U/L Alanine Aminotransferase (ALT/SGPT) 24 0-55 U/L Alkaline Phosphatase 179 H 40-136 U/L C-Reactive Protein High Sensitivity 1.03 H 0.00-0.50 MG/DL Total Protein 8.0 6.4-8.2 GM/DL Albumin 4.2 3.2-4.5 GM/DL Lipase 19 8-78 U/L Beta-Hydroxybutyrate (Chem panel) 0.09 0.00-0.27 MMOL/L Urine Color YELLOW Urine Clarity CLEAR Urine pH 6.0 5-9 Urine Specific [place] >=1.030 1.016-1.022 Urine Protein 1+ H NEGATIVE Urine Glucose (UA) TRACE H NEGATIVE Urine Ketones TRACE H NEGATIVE Urine Nitrite NEGATIVE NEGATIVE Urine Bilirubin 1+ H NEGATIVE Urine Urobilinogen 1.0 < = 1.0 MG/DL Urine Leukocyte Esterase NEGATIVE NEGATIVE Urine RBC (Auto) NEGATIVE NEGATIVE Urine RBC NONE /HPF Urine WBC NONE /HPF Urine Squamous Epithelial Cells NONE /HPF Urine Crystals NONE /LPF Urine Bacteria NEGATIVE /HPF Urine Casts NONE /LPF Urine Mucus SMALL H /LPF Urine Culture Indicated NO (STEWART BRYAN MD) Medications Given in ED Current Medications Medications Dose Ordered Sig/Tuan Route Start Time Stop Time Status Last Admin Dose Admin Fentanyl Citrate 50 mcg ONCE ONCE IVP 03/20/23 15:15 03/20/23 15:16 DC 03/20/23 15:17 50 MCG Fentanyl Citrate 50 mcg ONCE ONCE IVP 03/20/23 17:00 03/20/23 17:01 DC 03/20/23 17:09 50 MCG Ondansetron HCl 4 mg ONCE ONCE IVP 03/20/23 15:15 03/20/23 15:16 DC 03/20/23 15:17 4 MG (STEWART BRYAN MD) Vital Signs/I&O 03/20/23 03/20/23 15:05 17:25 Temp 36.8 36.8 Pulse 94 87 Resp 16 16 B/P (MAP) 125/97 (106) 122/90 Pulse Ox 98 96 O2 Delivery Room Air Room Air (STEWART BRYAN MD) Blood Pressure Mean: 106 Progress Progress Note : Progress Note Patient seen and evaluated, resting comfortably in recliner, no acute distress. Based on exam and symptoms, work-up initiated including CBC, CMP, CRP, beta hydroxybutyrate, venous blood gas, urinalysis. IV fluids, fentanyl, Zofran ordered. 1705 Labs reviewed. CBC grossly normal. CMP shows elevated glucose 170, elevat ed alkaline phosphatase 179. CRP normal. Hydroxybutyrate normal. Lipase normal. Blood gas shows elevated pH 7.46. Urinalysis shows 1+ protein, trace glucose, trace ketones, 1+ bilirubin. Based on results I do not think patient is in diabetic ketoacidosis. I am not concerned for a surgical abdomen, considered CT abdomen pelvis, but deferred due to nonspecific findings on exam and normal white count and CRP. This is likely a viral gastroenteritis due to vomiting, fever, and softer stools. Results discussed with patient. Patient reports that the first dose of fentanyl helped, requesting a second dose prior to leaving. This has been ordered. Patient is stable for discharge. Discharge instructions and return precautions provided. (DEIRDRE ROMAN APRN) Departure Impression Primary Impression: Gastroenteritis Disposition: 01 HOME, SELF-CARE Condition: Stable Departure-Patient Inst. Decision time for Depature: 17:08 (DEIRDRE ROMAN APRN) Referrals: [facility] (PCP/Family) Primary Care Physician Patient Instructions: Viral gastroenteritis in adults Add. Discharge Instructions: Follow-up with your primary care provider. Return for any new, concerning, or worsening symptoms. All discharge instructions reviewed with patient and/or family. Voiced understanding. ATTENDING PHYSICIAN NOTE: I was physically present as attending physician in the emergency department durtroy ng the care of this patient, but I was not directly involved in the decision making or delivery of care for this patient. (STEWART BRYAN MD) Copy Copies To 1: [facility]/DEIRDRE TOLENTINO APRN Mar 20, 2023 15:31 STEWART BRYAN MD Mar 20, 2023 22:55
[2023-03-20 15:33] LABS: BASOPHILS # (AUTO) 0.1 10^3/uL (0.0-0.1); BASOPHILS % (AUTO) 1 % (0-10); EOSINOPHILS # (AUTO) 0.3 10^3/uL (0.0-0.3); EOSINOPHILS % (AUTO) 3 % (0-10); HEMATOCRIT 45 % (40-54); HEMOGLOBIN 15.5 g/dL (13.3-17.7); LYMPHOCYTES # (AUTO) 2.8 10^3/uL (1.0-4.0); LYMPHOCYTES % (AUTO) 26 % (12-44); MEAN CORPUSCULAR HEMOGLOBIN 31 pg (25-34); MEAN CORPUSCULAR HGB CONC 34 g/dL (32-36); MEAN CORPUSCULAR VOLUME 90 fL (80-99); MEAN PLATELET VOLUME 9.5 fL (9.0-12.2); MONOCYTES # (AUTO) 0.8 10^3/uL (0.0-1.0); MONOCYTES % (AUTO) 8 % (0-12); NEUTROPHILS # (AUTO) 6.6 10^3/uL (1.8-7.8); NEUTROPHILS % (AUTO) 62 % (42-75); PLATELET COUNT 279 10^3/uL (130-400); WHITE BLOOD COUNT 10.5 10^3/uL (4.3-11.0)
[2023-03-20 16:22] LABS: BILIRUBIN,URINE 1+ (NEGATIVE); CLARITY,URINE CLEAR; COLOR,URINE YELLOW; GLUCOSE, URINE (UA) TRACE (NEGATIVE); KETONES,URINE TRACE (NEGATIVE); NITRITE,URINE NEGATIVE (NEGATIVE); PROTEIN,URINE 1+ (NEGATIVE)
[2023-03-20 16:23] LABS: BACTERIA,URINE NEGATIVE /HPF; LEUKOCYTE ESTERASE ,URINE NEGATIVE (NEGATIVE)
[2023-03-20 16:24] LABS: ALBUMIN 4.2 GM/DL (3.2-4.5); POTASSIUM 4.2 MMOL/L (3.6-5.0)
[2023-03-20 16:25] LABS: CALCIUM 9.3 MG/DL (8.5-10.1)
[2023-03-20 16:28] LABS: BILIRUBIN,TOTAL 0.4 MG/DL (0.1-1.0)
[2023-03-20 16:30] LABS: CREATININE SERUM 0.88 MG/DL (0.60-1.30)
[2023-03-20 17:25] VITALS: BP 122/90
== END 2023-03-20 17:26 | disposition home or self-care (01) ==
LOC: EDUNIT# 14:43 → ER 14:45
DX: K52.9 Noninfective gastroenteritis and colitis, unspecified (principal); E10.9 Type 1 diabetes mellitus without complications; F17.290 Nicotine dependence, other tobacco product, uncomplicated
CPT/HCPCS: 36415; 80053; 81000; 82010; 82805; 83690; 85025; 86141; 96361; 96374; 96375; 96376

== ENCOUNTER 2023-04-06 06:58 | Emergency (ER) | payer MEDICARE, MEDICAID ==
[~2023-04-06] VITALS: Ht 160 cm; Wt 95.2 kg
[2023-04-06] MEDS ORDERED: fentaNYL INJECTION 100 MCG/2 ML VIAL IVP STA (07:27)
[2023-04-06] MEDS ORDERED: LACTATED RINGERS 1,000 ML 1,000 ML IV STA (07:27)
[2023-04-06] MEDS ORDERED: ONDANSETRON INJECTION 4 MG/2 ML (SDV) IVP ONE (07:30)
[2023-04-06 07:51] LABS: CLARITY,URINE CLEAR; COLOR,URINE YELLOW; PH,URINE 5.5 (5-9)
[2023-04-06 07:52] LABS: BACTERIA,URINE NEGATIVE /HPF; BILIRUBIN,URINE NEGATIVE (NEGATIVE); GLUCOSE, URINE (UA) 3+ (NEGATIVE); KETONES,URINE TRACE (NEGATIVE); LEUKOCYTE ESTERASE ,URINE NEGATIVE (NEGATIVE); NITRITE,URINE NEGATIVE (NEGATIVE); PROTEIN,URINE NEGATIVE (NEGATIVE)
[2023-04-06 07:54] LABS: BASOPHILS % (AUTO) 0 % (0-10); EOSINOPHILS # (AUTO) 0.1 10^3/uL (0.0-0.3); EOSINOPHILS % (AUTO) 1 % (0-10); HEMATOCRIT 44 % (40-54); LYMPHOCYTES # (AUTO) 2.1 10^3/uL (1.0-4.0); LYMPHOCYTES % (AUTO) 19 % (12-44); MEAN CORPUSCULAR HEMOGLOBIN 31 pg (25-34); MEAN CORPUSCULAR HGB CONC 34 g/dL (32-36); MEAN CORPUSCULAR VOLUME 91 fL (80-99); MEAN PLATELET VOLUME 9.7 fL (9.0-12.2); MONOCYTES # (AUTO) 0.8 10^3/uL (0.0-1.0); MONOCYTES % (AUTO) 7 % (0-12); NEUTROPHILS # (AUTO) 7.9 10^3/uL (1.8-7.8); NEUTROPHILS % (AUTO) 72 % (42-75); PLATELET COUNT 244 10^3/uL (130-400)
--- NOTE | 2023-04-06 07:55 | ED General ---
General Chief Complaint: Chest Pain Stated Complaint: CP,ABD PX & BACK PX Source of Information: Patient Exam Limitations: No Limitations History of Present Illness Date Seen by Provider: Apr 06, 2023 Time Seen by Provider: 07:22 Initial Comments Here with report of overall not feeling well and achy to his chest, abdomen, back and legs. Was seen at the clinic yesterday for the same and had COVID, flu and strep testing performed. These apparently were all negative. He had labs drawn which did show ketones in his urine as well as elevated bicarb level. He is a known type I diabetic and has had history of DKA. They told him if he was not feeling better that he should come to the emergency department for concerns of DKA. He presents this morning with those concerns. He has not been able to eat or drink well due to the nausea and vomiting vomiting episode this morning. States his blood sugar has been over 200s to 300s on his continuous glucose monitor. Denies fevers currently but does have chills. Denies any significant wounds. He has very small healing wound to the right foot to the top of the foot. He reports that he has feeling of both feet despite the long-term diabetes. Denies blood in his vomit or stool. Timing/Duration: 2-3 Days, Getting Worse Severity: Moderate Associated Systoms: No Cough; Nausea/Vomiting; No Shortness of Air Allergies and Home Medications Allergies Coded Allergies: Penicillins (Verified Allergy, Mild, 10/13/21) morphine (Verified Allergy, Mild, 10/13/21) Patient Home Medication List Home Medication List Reviewed: Yes Albuterol Sulfate (Ventolin Hfa) 1 Puff Puff, 2 PUFF IH Q4H Prescribed by: Anup Hickman on 12/13/21 1601 Blood Sugar Diagnostic (Onetouch Verio) 1 Each Strip, (Reported) Entered as Reported by: ABRAHAM GAMINO on 12/20/211912 Dicyclomine HCl (Dicyclomine HCl) 10 Mg Capsule, 10 MG PO ACHS PRN for ABDOMINAL PAIN Prescribed by: Deirdre Kamara on 06/17/22 1357 Doxycycline Hyclate (Doxycycline Hyclate) 100 Mg Tablet, 100 MG PO BID Prescribed by: Anup Hickman on 12/13/21 1601 Ibuprofen (Ibuprofen) 600 Mg Tablet, 600 MG PO Q6H PRN for PAIN-MILD Prescribed by: David Grey on 06/04/22 1427 Insulin Aspart (Novolog Flexpen) 100 Unit/Ml (3 Ml) Solution, (Reported) Entered as Reported by: ABRAHAM GAMINO on 12/20/211912 Insulin Glargine,Hum.rec.anlog (Basaglar Kwikpen U-100) 100 Unit/Ml (3 Ml) Insuln.pen, (Reported) Entered as Reported by: ABRAHAM GAMINO on 12/20/211912 Lisinopril (Lisinopril) 5 Mg Tablet, (Reported) Entered as Reported by: ABRAHAM GAMINO on 12/20/211912 Methocarbamol (Methocarbamol) 750 Mg Tablet, 750 MG PO Q6-8HR Prescribed by: DANIELLA DYER on 01/18/22 1252 Naproxen (Naproxen) 500 Mg Tablet.dr, 500 MG PO BID Prescribed by: RENETTA NUR on 12/20/21 2110 Ondansetron (Ondansetron Odt) 4 Mg Tab.rapdis, 4 MG PO Q6H Prescribed by: DONALD GONZALEZ MD on 01/05/22 1529 Ondansetron (Ondansetron Odt) 4 Mg Tab.rapdis, 4 MG SL Q4H PRN for NAUSEA/VOMITING Prescribed by: Deirdre Kamara on 06/17/22 1357 Ondansetron (Ondansetron Odt) 4 Mg Tab.rapdis, 4 MG SL Q4H PRN for NANY SEA/VOMITING Prescribed by: Deirdre Kamara on 07/25/22 1639 Pantoprazole Sodium (Protonix) 40 Mg Tablet.dr, 40 MG PO DAILY Prescribed by: SAEED MONTAGUE on 01/25/23 1655 Polymyxin B Sulf/Trimethoprim (Polymyxin B-Tmp Eye Drops) 10,000 Unit-1 Mg/Ml Drops, 1 DROP OP Q3H Prescribed by: Deirdre Kamara on 01/10/23 1203 Pregabalin (Pregabalin) 75 Mg Capsule, (Reported) Entered as Reported by: ABRAHAM GAMINO on 12/20/211912 Sucralfate (Carafate) 1 Gram Tablet, 1 GM PO QID Prescribed by: SAEED MONTAGUE on 01/25/23 1655 Sulfamethoxazole/Trimethoprim (Bactrim Ds Tablet) 1 Each Tablet, 1 EACH PO BID Prescribed by: DANIELLA DYER on 12/09/21 1630 Sulfamethoxazole/Trimethoprim (Bactrim Ds Tablet) 800 Mg-160 Mg Tablet, 1 EACH PO BID Prescribed by: SAEED MONTAGUE on 12/26/22 1542 Syring W-Ndl,Disp,Insul,0.5 ml (Insulin Syringe) 31 Gauge X 5/16" Disp.syrin, (Reported), (DME) Entered as Reported by: ABRAHAM GAMINO on 12/20/211912 Tramadol HCl (Ultram) 50 Mg Tablet, 50 MG PO Q4H Prescribed by: RENETTA NUR on 12/20/212109 Tramadol HCl (Tramadol HCl) 50 Mg Tablet, 50-100 MG PO Q4H PRN for PAIN- BREAKTHROUGH Prescribed by: David Grey on 05/11/22 1444 [Albuterol] , (Reported) Entered as Reported by: ABRAHAM GAMINO on 12/20/211912 Review of Systems Review of Systems Constitutional: see HPI, chills; No fever EENTM: nose congestion; No throat pain Respiratory: cough (4 days with mucus production); No short of breath Cardiovascular: see HPI Gastrointestinal: diarrhea, nausea, vomiting Genitourinary: No dysuria Musculoskeletal: back pain, muscle pain Skin: see HPI Psychiatric/Neurological: No Symptoms Reported Past Uovbdeb-Nnlmim-Rdhvdf Hx Patient Social History Tobacco Use?: No Use of E-Cig and/or Vaping dev: No Substance use?: No Substance frequency: Once in a while Pt feels they are or have been: No Immunizations Up To Date First/Initial COVID19 Vaccinat: NONE Second COVID19 Vaccination Domo: NONE Third COVID19 Vaccination Date: NONE Past Medical History Surgery/Hospitalization HX: SHILPA BILAT EAR SURGERY (MULTIPLE) T&A ORTHOPEDIC DIABETIC TYPE I, htn, HIGH CHOLESTEROL Surgeries: Yes Adenoidectomy, Ear Surgery, Gallbladder, Tonsillectomy Respiratory: No Cardiac: Yes Hypertension Neurological: Yes Neuropathy Genitourinary: Yes (NO DIALYSIS) Renal Failure Gastrointestinal: Yes Diverticulosis Musculoskeletal: No Endocrine: Yes (TYPE 1 DIABETES) Diabetes, Insulin dep HEENT: Yes (S/P T&A; MULTIPLE SETS OF BMT'S) Cancer: No Psychosocial: No Integumentary: No Blood Disorders: No Family Medical History Reviewed Nursing Family Hx No Pertinent Family Hx Physical Exam Vital Signs Vital Signs - First Documented 04/06/23 07:15 Temp 36.8 Pulse 98 Resp 21 B/P (MAP) 151/110 (124) Pulse Ox 98 O2 Delivery Room Air Capillary Refill : Height, Weight, BMI Height: '" Weight: lbs. oz. kg; 37.00 BMI Method: General Appearance: No Apparent Distress, WD/WN HEENT: PERRL/EOMI, Pharynx Normal Neck: Non Tender, Supple Respiratory: Lungs Clear, No Respiratory Distress Cardiovascular: No Murmur, Tachycardia Gastrointestinal: Normal Bowel Sounds, Non Tender, Soft Back: Normal Inspection, No Vertebral Tenderness, CVA Tenderness (R) Extremity: Normal Range of Motion, Non Tender Neurologic/Psychiatric: Alert, Oriented x3 Skin: Normal Color, Warm/Dry, Other (3 mm residual skin redness to the top of the right foot consistent with healing wound) Focused Exam Lactate Level 04/06/23 07:44: Lactic Acid Level 1.60 Lactic Acid Level Laboratory Tests Test 04/06/23 07:44 Lactic Acid Level 1.60 MMOL/L (0.50-2.00) Progress/Results/Core Measures Suspected Sepsis SIRS Temperature: Pulse: Respiratory Rate: Laboratory Tests 04/06/23 07:44: White Blood Count 11.0 Blood Pressure / Mean: 04/06/23 07:44: Lactic Acid Level 1.60 Laboratory Tests 04/06/23 07:44: Creatinine 1.15, INR Comment 1.1, Platelet Count 244, Total Bilirubin 0.8 Results/Orders Lab Results Laboratory Tests Test 04/06/23 07:26 04/06/23 07:33 04/06/23 07:44 Range/Units Glucometer 255 H 70-110 MG/DL Urine Color YELLOW Urine Clarity CLEAR Urine pH 5.5 5-9 Urine Specific Spearfish 1.025 H 1.016-1.022 Urine Protein NEGATIVE NEGATIVE Urine Glucose (UA) 3+ H NEGATIVE Urine Ketones TRACE H NEGATIVE Urine Nitrite NEGATIVE NEGATIVE Urine Bilirubin NEGATIVE NEGATIVE Urine Urobilinogen 0.2 < = 1.0 MG/DL Urine Leukocyte Esterase NEGATIVE NEGATIVE Urine RBC (Auto) NEGATIVE NEGATIVE Urine RBC NONE /HPF Urine WBC NONE /HPF Urine Squamous Epithelial Cells NONE /HPF Urine Crystals NONE /LPF Urine Bacteria NEGATIVE /HPF Urine Casts NONE /LPF Urine Mucus NEGATIVE /LPF Urine Culture Indicated CULTURE PENDING White Blood Count 11.0 4.3-11.0 10^3/uL Red Blood Count 4.85 4.30-5.52 10^6/uL Hemoglobin 15.0 13.3-17.7 g/dL Hematocrit 44 40-54 % Mean Corpuscular Volume 91 80-99 fL Mean Corpuscular Hemoglobin 31 25-34 pg Mean Corpuscular Hemoglobin Concent 34 32-36 g/dL Red Cell Distribution Width 13.2 10.0-14.5 % Platelet Count 244 130-400 10^3/uL Mean Platelet Volume 9.7 9.0-12.2 fL Immature Granulocyte % (Auto) 0 % Neutrophils (%) (Auto) 72 42-75 % Lymphocytes (%) (Auto) 19 12-44 % Monocytes (%) (Auto) 7 0-12 % Eosinophils (%) (Auto) 1 0-10 % Basophils (%) (Auto) 0 0-10 % Neutrophils # (Auto) 7.9 H 1.8-7.8 10^3/uL Lymphocytes # (Auto) 2.1 1.0-4.0 10^3/uL Monocytes # (Auto) 0.8 0.0-1.0 10^3/uL Eosinophils # (Auto) 0.1 0.0-0.3 10^3/uL Basophils # (Auto) 0.0 0.0-0.1 10^3/uL Immature Granulocyte # (Auto) 0.0 0.0-0.1 10^3/uL Prothrombin Time 14.2 12.2-14.7 SEC INR Comment 1.1 0.8-1.4 Activated Partial Thromboplast Time 30 24-35 SEC Sodium Level 136 135-145 MMOL/L Potassium Level 4.2 3.6-5.0 MMOL/L Chloride Level 103 98-107 MMOL/L Carbon Dioxide Level 24 21-32 MMOL/L Anion Gap 9 5-14 MMOL/L Blood Urea Nitrogen 11 7-18 MG/DL Creatinine 1.15 0.60-1.30 MG/DL Estimat Glomerular Filtration Rate 84 BUN/Creatinine Ratio 10 Glucose Level 274 H 70-105 MG/DL Lactic Acid Level 1.60 0.50-2.00 MMOL/L Calcium Level 9.3 8.5-10.1 MG/DL Corrected Calcium 9.2 8.5-10.1 MG/DL Total Bilirubin 0.8 0.1-1.0 MG/DL Aspartate Amino Transf (AST/SGOT) 26 5-34 U/L Alanine Aminotransferase (ALT/SGPT) 25 0-55 U/L Alkaline Phosphatase 172 H 40-136 U/L Total Protein 7.7 6.4-8.2 GM/DL Albumin 4.1 3.2-4.5 GM/DL My Orders Orders - SAYRA JUARES MD Cbc And Automated Diff (04/06/23 07:27) Comprehensive Metabolic Panel (04/06/23 07:27) Blood Culture (04/06/23 07:27) Sputum Culture (04/06/23 07:27) Urinalysis (04/06/23 07:27) Urine Culture (04/06/23 07:27) Protime With Inr (04/06/23 07:27) Partial Thromboplastin Time (04/06/23 07:27) Chest 1 View, Ap/Pa Only (04/06/23 07:27) Ed Iv/Invasive Line Start (04/06/23 07:27) Vital Signs Adult Sepsis Patie Q15M (04/06/23 07:27) O2 (04/06/23 07:27) Remove Rings In Anticipation O (04/06/23 07:27) Lactic Acid Analyzer (04/06/23 07:27) Ondansetron Injection (Ondansetron Inj (04/06/23 07:30) Lactated Ringers 1,000 Ml (Lactated Ring (04/06/23 07:27) Fentanyl Injection (Fentanyl Injection (04/06/23 07:27) Hydrocodone/Apap 5/325 Tablet (Hydrocod (04/06/23 09:00) Medications Given in ED Current Medications Medications Dose Ordered Sig/Tuan Route Start Time Stop Time Status Last Admin Dose Admin Acetaminophen/ Hydrocodone Bitart 1 ea ONCE ONCE PO 04/06/23 09:00 04/06/23 09:01 DC 04/06/23 09:18 1 EA Ondansetron HCl 4 mg ONCE ONCE IVP 04/06/23 07:30 04/06/23 07:31 DC 04/06/23 07:42 4 MG Vital Signs/I&O 04/06/23 07:15 Temp 36.8 Pulse 98 Resp 21 B/P (MAP) 151/110 (124) Pulse Ox 98 O2 Delivery Room Air Capillary Refill : Progress Note : Progress Note Seen and evaluated. Given his diabetes status and history of DKA with cough, congestion and chills, we will initiate sepsis workup with concerns for DKA. IV, labs including CBC, CMP, blood cultures, lactic acid, UA and urine culture ordered. LR 1 L bolus, Zofran 4 mg IV for nausea and fentanyl 50 mcg IV for pain ordered. Monitor patient. Differential diagnosis includes pneumonia, DKA, renal failure, dehydration, electrolyte abnormality, viral syndrome 0924: I have added hydrocodone 5/325 1 tab p.o. Chest x-ray reviewed by me shows no obvious infiltrate on my interpretation. Labs reviewed and CBC is grossly normal. Coags are negative and lactic acid is negative. Chemistry has normal electrolytes and normal renal function with slightly elevated glucose in the 200s range. UA does show 3+ glucose and trace ketones. He has normal bicarb level and I do not find chemistry concerns for ketoacidosis currently. He is tolerating p.o. He did receive the fluid as noted above. Overall I think this is likely viral syndrome with persistence. He has ondansetron at home so no need to prescribe that. He does have insulin pump glucose monitoring system. He is able to do boluses. Overall I think he is safe for discharge at this point. Discharged home with return precautions. Patient verbalized understanding of instructions and agreement with plan. Diagnostic Imaging Diagonstic Imaging: Xray Plain Films/CT/US/NM/MRI: chest Comments [facility], [facility]. [place], [place] NAME: AUGUSTACARRIE Dru [facility] REC#: [id number] PT STATUS: REG ER : 1985 PHYSICIAN: SAYRA JUARES MD ADMIT DATE: 04/06/23/ER Draft Date of Exam:04/06/23 CHEST 1 VIEW, AP/PA ONLY INDICATION: Abdominal pain, chest pain and cough. EXAM: Single AP view of the chest is obtained. COMPARISON: No previous study is available for comparison at this time. FINDINGS: Heart size and pulmonary vasculature are within normal limits, and the lungs are clear, bilaterally. IMPRESSION: Unremarkable chest. Dictated on workstation # [id number] Dict: 04/06/23816 Trans: 04/06/23819 [facility] [id number] Interpreted by: SKIP WORTHINGTON MD Electronically signed by: Departure Impression Primary Impression: Hyperglycemia due to diabetes mellitus Additional Impressions: Myalgia Viral syndrome Disposition: HOME, SELF-CARE Condition: Stable Departure-Patient Inst. Decision time for Depature: 09:27 [place]: [facility] [place] Primary Care Physician Patient Instructions: High Blood Sugar, Adult ED, Viral Syndrome (DC), Muscle and Bone Pain (DC) Add. Discharge Instructions: All discharge instructions reviewed with patient and/or family. Voiced understanding. Continue to drink plenty of fluids by taking small sips frequently. Monitor and manage blood sugar to keep near normal range. May continue ondansetron 4 mg every 4-6 hours as needed for nausea and vomiting. You may take Tylenol/acetami nophen 1000 mg every 6-8 hours as needed for fever or pain. Get plenty of rest. Follow-up with your doctor in a few days for recheck. Return for vomiting, fever, weakness, breathing problems, persistent uncontrolled blood sugars or other concerns as needed. Copy Copies To 1: PETERSON DOVER MD, TIMOTHY D MD Apr 06, 2023 07:55
[2023-04-06 08:07] LABS: ALBUMIN 4.1 GM/DL (3.2-4.5); POTASSIUM 4.2 MMOL/L (3.6-5.0)
[2023-04-06 08:08] LABS: CALCIUM 9.3 MG/DL (8.5-10.1)
[2023-04-06 08:09] LABS: INR 1.1 (0.8-1.4); PROTHROMBIN TIME PATIENT 14.2 SEC (12.2-14.7); TOTAL PROTEIN 7.7 GM/DL (6.4-8.2)
[2023-04-06 08:11] LABS: BILIRUBIN,TOTAL 0.8 MG/DL (0.1-1.0)
[2023-04-06 08:13] LABS: CREATININE SERUM 1.15 MG/DL (0.60-1.30)
--- NOTE | 2023-04-06 08:20 | Diagnostic Imaging Report ---
INDICATION: Abdominal pain, chest pain and cough. EXAM: Single AP view of the chest is obtained. COMPARISON: No previous study is available for comparison at this time. FINDINGS: Heart size and pulmonary vasculature are within normal limits, and the lungs are clear, bilaterally. IMPRESSION: Unremarkable chest. Dictated by: Dictated on workstation # [id number]
[2023-04-06] MEDS ORDERED: HYDROcodone/ACETAMINOPHEN 5 MG/325 MG TABLET PO ONE (09:00)
[2023-04-06 09:38] VITALS: BP 113/80
== END 2023-04-06 09:38 | disposition home or self-care (01) ==
LOC: EDUNIT# 06:58 → ER 07:02
DX: E10.10 Type 1 diabetes mellitus with ketoacidosis without coma (principal); B34.9 Viral infection, unspecified; M79.10 Myalgia, unspecified site
CPT/HCPCS: 36415; 71045; 80053; 81000; 82947; 83605; 85025; 85610; 85730; 87040; 87088